=== PATIENT | male | born 1935 | race Caucasian/White ===

== ENCOUNTER → 2016-12-11 | Outpatient (CLI) | payer MEDICARE, OTHER ==
[2016-12-11 08:39] LABS: ANION GAP 10 (5-19); BLOOD UREA NITROGEN 24 mg/dL (7-20); CARBON DIOXIDE 25 mmol/L (22-30); CHLORIDE 107 mmol/L (98-107); CREATININE RESULT 1.27 mg/dL (0.52-1.25); GLUCOSE 102 mg/dL (75-110); POTASSIUM 4.5 mmol/L (3.6-5.0); SODIUM 142.3 mmol/L (137-145)
[2016-12-12 20:13] LABS: CREATININE URINE 109.2 mg/dL (Not Estab.); MICROALBUMIN URINE 257.4 ug/mL (Not Estab.)
== END ==
LOC: OD 07:05
PROVIDERS: ATTEND Internal Medicine Nephrology
DX: I12.9 Hypertensive chronic kidney disease with stage 1 through stage 4 chronic kidney disease, or unspecified chronic kidney disease (principal); N18.3 Chronic kidney disease, stage 3 (moderate); E55.9 Vitamin D deficiency, unspecified
CPT/HCPCS: 36415; 80048; 82043; 82306; 82570

== ENCOUNTER → 2017-06-15 | Outpatient (CLI) | payer MEDICARE, OTHER ==
[2017-06-15 08:56] LABS: ABSOLUTE BASOPHILS # (AUTO) 0.1 10^3/uL (0.0-0.2); ABSOLUTE EOSINOPHILS # (AUTO) 0.3 10^3/uL (0.0-0.6); ABSOLUTE LYMPHOCYTES (AUTO) 1.1 10^3/uL (0.5-4.7); ABSOLUTE MONOCYTES (AUTO) 0.7 10^3/uL (0.1-1.4); ABSOLUTE NEUT (AUTO) 4.4 10^3/uL (1.7-8.2); EOSINOPHILS % (AUTO) 4.7 % (0-6); HEMATOCRIT 36.8 % (37.9-51.0); HEMOGLOBIN 12.2 g/dL (13.5-17.0); LYMPHOCYTES % (AUTO) 16.7 % (13-45); MEAN CORPUSCULAR HEMOGLOBIN 29.2 pg (27.0-33.4); MEAN CORPUSCULAR HGB CONC 33.3 g/dL (32.0-36.0); MEAN CORPUSCULAR VOLUME 88 fl (80-97); MONOCYTES % (AUTO) 10.7 % (3-13); PLATELET COUNT 186 10^3/uL (150-450); RED BLOOD COUNT 4.19 10^6/uL (4.35-5.55); RED CELL DISTRIBUTION WIDTH 15.4 % (11.5-14.0); SEGMENTED NEUTROPHILS % (AUTO) 66.9 % (42-78); TOTAL CELLS COUNTED % (AUTO) 100 %; WHITE BLOOD COUNT 6.6 10^3/uL (4.0-10.5)
[2017-06-15 09:11] LABS: ANION GAP 8 (5-19); BLOOD UREA NITROGEN 28 mg/dL (7-20); CALCIUM 9.2 mg/dL (8.4-10.2); CARBON DIOXIDE 31 mmol/L (22-30); CHLORIDE 106 mmol/L (98-107); GLUCOSE 100 mg/dL (75-110); PHOSPHORUS 3.7 mg/dL (2.5-4.5); SODIUM 144.6 mmol/L (137-145)
== END ==
LOC: OD 08:08
PROVIDERS: ATTEND Internal Medicine Nephrology
DX: N18.3 Chronic kidney disease, stage 3 (moderate) (principal); D63.1 Anemia in chronic kidney disease; E55.9 Vitamin D deficiency, unspecified
CPT/HCPCS: 36415; 80048; 82040; 82306; 83970; 84100; 85025

== ENCOUNTER → 2018-01-07 | Outpatient (CLI) | payer MEDICARE, OTHER ==
--- NOTE | 2018-01-07 13:08 | RADIOLOGY REPORT (SQ) ---
EXAM DESCRIPTION: CT ABD/PELVIS WITH IV ORAL COMPLETED DATE/TIME: 01/07/2018 8:45 am REASON FOR STUDY: UNSPECIFIED ABDOMINAL PAIN R10.9 UNSPECIFIED ABDOMINAL PAIN COMPARISON: None. TECHNIQUE: CT scan of the abdomen and pelvis performed using helical scanning technique with dynamic intravenous contrast injection. No oral contrast. Images reviewed with lung, soft tissue, and bone windows. Reconstructed coronal and sagittal MPR images reviewed. Delayed images for evaluation of the urinary system also acquired. All images stored on PACS. All CT scanners at this facility use dose modulation, iterative reconstruction, and/or weight based d osing when appropriate to reduce radiation dose to as low as reasonably achievable (ALARA). [facility]: Dose Right [facility]: CareDose [facility]: Dose Right [facility]: Teradose 4D [facility]: [employer] CONTRAST TYPE AND DOSE: contrast/concentration: Isovue 350.00 mg/ml; Total Contrast Delivered: 89.0 ml; Total Saline Delivered: 70.0 ml RENAL FUNCTION: Creatinine 1.3. RADIATION DOSE: CT Rad equipment meets quality standard of care and radiation dose reduction techniq ues were employed. CTDIvol: 7.6 - 8.8 mGy. DLP: 815 mGy-cm.. LIMITATIONS: None. FINDINGS: LOWER CHEST: No significant findings. No nodules or infiltrates. LIVER: Normal size. No masses. No dilated ducts. SPLEEN: Normal size. No focal lesions. PANCREAS: No masses. No significant calcifications. No adjacent inflammation or peripancreatic fluid collections. Pancreatic duct not dilated. GALLBLADDER: No identified stones by CT criteria. No inflammatory changes to suggest cholecystitis. ADRENAL GLANDS: No significant masses or asymmetry. RIGHT KIDNEY AND URETER: Cortical cyst. No solid masses. No significant calcifications. No hydro nephrosis or hydroureter. LEFT KIDNEY AND URETER: No solid masses. No significant calcifications. No hydronephrosis or hydr oureter. AORTA AND VESSELS: No aneurysm. No dissection. Renal arteries, SMA, celiac without stenosis. RETROPERITONEUM: No retroperitoneal adenopathy, hemorrhage or masses. BOWEL AND PERITONEAL CAVITY: Fairly large hiatal hernia. Colonic diverticulosis. No masses or infla mmatory changes. No free fluid or peritoneal masses. APPENDIX: Normal. PELVIS: Large left inguinal hernia containing a significant portion of the adjacent descending and si gmoid colon. There is also a large right inguinal hernia containing fat only. No mass. No free flu id. Normal bladder. ABDOMINAL WALL: No masses. No hernias. BONES: No significant or acute findings. Degenerative changes in the spine. OTHER: No other significant finding. IMPRESSION: 1. LARGE LEFT INGUINAL HERNIA CONTAINING A SIGNIFICANT PORTION OF THE ADJACENT DESCENDING AND SIGMOID COLON. NO EVIDENCE OF MECHANICAL OBSTRUCTION AT THIS TIME. 2. LARGE RIGHT INGUINAL HERNIA CONTAINING FAT ONLY. 3. COLONIC DIVERTICULOSIS. NO CT FINDINGS OF DIVERTICULITIS. 4. LARGE HIATAL HERNIA. 5. CORTICAL CYST IN THE RIGHT KIDNEY. 6. NO OTHER SIGNIFICANT FINDINGS. TECHNICAL DOCUMENTATION: JOB ID: [id number] Quality ID # [id number]: Final reports with documentation of one or more dose reduction techniques (e.g., Au tomated exposure control, adjustment of the mA and/or kV according to patient size, use of iterative reconstruction technique) 2010 [employer]- All Rights Reserved Reading location - IP/workstation name: [email or web address]
== END ==
LOC: RAD 07:53
PROVIDERS: ATTEND Surgery
DX: K40.20 Bilateral inguinal hernia, without obstruction or gangrene, not specified as recurrent (principal); R10.9 Unspecified abdominal pain
CPT/HCPCS: 74177; 82565

== ENCOUNTER → 2018-02-03 | Outpatient (CLI) | payer MEDICARE, OTHER ==
[~2018-02-03] MED LIST: REGADENOSON INJ 0.4 MG/5 ML DISP.SYRIN IV ONE
--- NOTE | 2018-02-03 19:30 | DRAGON STRESS TEST REPORT ---
INTRAVENOUS LEXISCAN CARDIOLITE STRESS TEST USING SINGLE PHOTON EMMISION COMPUTERIZED TOMOGRAPHIC. DATE OF PROCEDURE: February 03, 2018, INDICATION : Preop hernia surgery, patient with CAD and history of CABG CARDIAC RISK FACTORS: Hypertension, dyslipidemia, known CAD RESTING EKG: Sinus rhythm, right bundle branch block, left axis deviation, abnormal Q waves V1 to V3 suggestive of prior anteroseptal myocardial infarction STRESS EKG: No significant ST segment changes noted with LexiScan bolus REASON FOR TERMINATION: Protocol. PROCEDURE REPORT: Baseline heart rate 54 beats per minute with blood pressure of 127/69. Patient had no significant complaints. Patient was bolused with Lexiscan 0.4 mg intravenously followed by saline bolus. Heart rate at 2 minutes post bolus 68 with a blood pressure of 102/56. 3 minutes post bolus heart rate 70 with blood pressure of 113/65. No significant EKG changes were noted. Patient had no significant complaints during the procedure or postprocedure. CONCLUSIONS: Normal EKG and hemodynamic response to IV LexiScan. NUCLEAR DATA: At rest the patient was given 12.42 millicuries of technetium 99 sestamibi injected intravenously. As per protocol rest gated SPECT images were obtained. On day of stress test, the patient was given intravenous LexiScan at a dose of 0.4 mg in 5 mL intravenously, followed by flush with normal saline. Subsequently the stress dose of 34.9 millicuries of technetium 99 sestamibi was injected intravenously. As per protocol stress gated images were obtained. NUCLEAR INTERPRETATION: Both raw and processed data were used for interpretation. Visual, qualitative, computer-generated quantitative data was used. There was good myocardial uptake of technetium compound. Motion artifact and soft tissue attenuations were noted. Increased visceral uptake was noted. No definitive areas of transient perfusion defect noted, predominantly severe fixed defect noted in the apex and distal anterior wall consistent with severe scar. EKG gated imaging showed LV EF at 39 %, rest and stress gated EF similar visually. Apical and distal anterior wall akinesia noted. T. I D. ratio was 1.15. Lung heart ratio noted to be within normal limits 0.34. No significant extracardiac and abnormal radiotracer activities were noted. RV free wall uptake was noted to be WNL. IMPRESSION: Also refer to comments under nuclear interpretation. Also test results needs to be interpreted in the context of pretest probability. 1. No definitive areas of transient perfusion defect noted. 2. Severe fixed defect noted in the apex and distal anterior wall consistent with severe scar. 3. EKG gated imaging shows left ventricular ejection fraction of approx. 39 %. Apical and distal anterior wall akinesia noted. 4. Clinical correlation requested as worse disease and or balanced ischemia could be missed. In approximately 10% of the cases Lexiscan may not cause adequate vasodilatory stress. RECOMMENDATIONS: Aggressive risk factor modification and medical management. Further evaluation may be needed if continued symptoms or other high risk indicators are noted on clinical evaluation. Close cardiology follow-up is also recommended. Clinical correlation with echocardiogram derived ejection fraction. Inability to exercise by itself can lead to increased cardiovascular event risks. Consider cardiology consultation and or follow-up if clinically indicated. I am available for cardiology evaluation and consultation if requested by the tobacco conditioner, unless patient already has a marketing performance analyst. Dr. Mayra Mejía. MRCP Board certified in cardiology and sleep medicine. Board certified in nuclear cardiology, adult echocardiography. V[facility]URA
== END ==
LOC: RAD 07:45
PROVIDERS: ATTEND Internal Medicine Cardiovascular Disease
DX: I25.10 Atherosclerotic heart disease of native coronary artery without angina pectoris (principal); Z01.810 Encounter for preprocedural cardiovascular examination
CPT/HCPCS: 93017; 78452; A9500; J2785; Q9969

== ENCOUNTER → 2018-02-04 | Outpatient (CLI) | payer MEDICARE, OTHER ==
[2018-02-04 09:04] VITALS: BP 138/70
--- NOTE | 2018-02-04 09:59 | RADIOLOGY REPORT (SQ) ---
EXAM DESCRIPTION: CHEST PA/LATERAL COMPLETED DATE/TIME: 02/04/2018 9:52 am REASON FOR STUDY: PRE-OP COMPARISON: 01/14/2011 EXAM PARAMETERS: NUMBER OF VIEWS: two views TECHNIQUE: Digital Frontal and Lateral radiographic views of the chest acquired. RADIATION DOSE: NA LIMITATIONS: none FINDINGS: LUNGS AND PLEURA: No opacities, masses or pneumothorax. No pleural effusion. MEDIASTINUM AND HILAR STRUCTURES: No masses or contour abnormalities. HEART AND VASCULAR STRUCTURES: Heart normal size. No evidence for failure. BONES: No acute findings. HARDWARE: Sternotomy wires are in place. OTHER: No other significant finding. IMPRESSION: NO SIGNIFICANT RADIOGRAPHIC FINDING IN THE CHEST. TECHNICAL DOCUMENTATION: JOB ID: [id number] [employer]- All Rights Reserved Reading location - IP/workstation name: [email or web address]
[2018-02-04 10:55] LABS: HEMATOCRIT 35.5 % (37.9-51.0); HEMOGLOBIN 11.7 g/dL (13.5-17.0); MEAN CORPUSCULAR HEMOGLOBIN 28.8 pg (27.0-33.4); MEAN CORPUSCULAR VOLUME 87 fl (80-97); PLATELET COUNT 201 10^3/uL (150-450); RED BLOOD COUNT 4.08 10^6/uL (4.35-5.55); RED CELL DISTRIBUTION WIDTH 16.4 % (11.5-14.0); WHITE BLOOD COUNT 8.4 10^3/uL (4.0-10.5)
[2018-02-04 11:24] LABS: ANION GAP 8 (5-19); BLOOD UREA NITROGEN 26 mg/dL (7-20); CALCIUM 9.2 mg/dL (8.4-10.2); CARBON DIOXIDE 28 mmol/L (22-30); CHLORIDE 107 mmol/L (98-107); GLUCOSE 96 mg/dL (75-110); POTASSIUM 4.5 mmol/L (3.6-5.0); SODIUM 143.2 mmol/L (137-145)
== END ==
LOC: OD 09:28 → EDSTATUS 02-11 12:30
PROVIDERS: ATTEND Surgery
DX: Z01.810 Encounter for preprocedural cardiovascular examination (principal); Z01.812 Encounter for preprocedural laboratory examination; Z01.818 Encounter for other preprocedural examination; K40.20 Bilateral inguinal hernia, without obstruction or gangrene, not specified as recurrent; I10 Essential (primary) hypertension; Z79.82 Long term (current) use of aspirin; Z95.1 Presence of aortocoronary bypass graft
CPT/HCPCS: 36415; 71046; 80048; 85027

== ENCOUNTER 2018-03-11 05:25 | Day surgery (SDC) | payer MEDICARE, OTHER ==
[2018-03-10 09:46] LABS: HEMOGLOBIN 12.2 g/dL (13.5-17.0); MEAN CORPUSCULAR HEMOGLOBIN 29.3 pg (27.0-33.4); MEAN CORPUSCULAR HGB CONC 33.7 g/dL (32.0-36.0); MEAN CORPUSCULAR VOLUME 87 fl (80-97); PLATELET COUNT 193 10^3/uL (150-450); RED BLOOD COUNT 4.16 10^6/uL (4.35-5.55); RED CELL DISTRIBUTION WIDTH 15.9 % (11.5-14.0); WHITE BLOOD COUNT 7.7 10^3/uL (4.0-10.5)
[2018-03-10 10:10] LABS: ALANINE AMINOTRANSFERASE 26 U/L (21-72); ALKALINE PHOSPHATASE 98 U/L (38-126); ANION GAP 9 (5-19); ASPARTATE AMINO TRANSFERASE 22 U/L (17-59); BILIRUBIN,DIRECT 0.2 mg/dL (0.0-0.4); BILIRUBIN,TOTAL 0.6 mg/dL (0.2-1.3); BLOOD UREA NITROGEN 26 mg/dL (7-20); CALCIUM 9.3 mg/dL (8.4-10.2); CARBON DIOXIDE 28 mmol/L (22-30); CHLORIDE 107 mmol/L (98-107); GLUCOSE 95 mg/dL (75-110); POTASSIUM 4.7 mmol/L (3.6-5.0); SODIUM 143.6 mmol/L (137-145); TOTAL PROTEIN 6.8 g/dL (6.3-8.2)
[~2018-03-11 05:25] MED LIST changes: +ACETAMINOPHEN 325 MG TABLET PO PRN; +CEFAZOLIN 2 GM/D5W RTU 2 GM/50 ML RTUPB IV ONE; +CEFAZOLIN 2 GM/D5W RTU 2 GM/50 ML RTUPB IV PRN; +LACTATED RINGERS 1000 ML IV PRN; +LIDOCAINE 0.5% INJ-PF (5 MG/ML) 50 ML SDV SUBCUT PRN; -REGADENOSON INJ 0.4 MG/5 ML DISP.SYRIN IV ONE
[2018-03-11] MEDS ORDERED: LIDOCAINE 2% INJ-PF (20 MG/ML) 10 ML AMPUL ONE (06:18)
[2018-03-11] MEDS ORDERED: DEXAMETHASONE SOD PHOSPHATE INJ 4 MG/1 ML VIAL ONE (06:19)
[2018-03-11] MEDS ORDERED: FENTANYL CITRATE INJ/PF 100 MCG/2 ML AMPUL ONE (06:19)
[2018-03-11] MEDS ORDERED: MIDAZOLAM 2 MG/2 ML INJ ONE (06:19)
[2018-03-11] MEDS ORDERED: PROPOFOL INJ 200 MG/20 ML VIAL IV ONE (06:20)
[2018-03-11] MEDS ORDERED: ACETAMINOPHEN 0 MG/0 ML RTUPB IV ONE (06:20)
[2018-03-11] MEDS ORDERED: ONDANSETRON HCL INJ/PF 4 MG/2 ML SDV ONE (06:20)
[2018-03-11] MEDS ORDERED: BUPIVACAINE HCL 0.5 % INJ/PF 30 ML SDV ONE (06:43)
[2018-03-11] MEDS ORDERED: SUGAMMADEX SODIUM 200 MG/2 ML SDV IV ONE (06:45)
[2018-03-11] MEDS ORDERED: EPHEDRINE SULFATE INJ 50 MG/1 ML AMPULE ONE (07:17)
[2018-03-11] MEDS ORDERED: MEPERIDINE HCL/PF INJ 25 MG/1 ML DISP.SYRIN IV PRN (09:08)
[2018-03-11] MEDS ORDERED: PROMETHAZINE HCL INJ 25 MG/1 ML VIAL IV PRN ×2 (09:08)
[2018-03-11] MEDS ORDERED: MORPHINE SULFATE 10 MG/ML INJ IV PRN (09:08)
[2018-03-11] MEDS ORDERED: FENTANYL CITRATE INJ/PF 100 MCG/2 ML AMPUL IV PRN ×2 (09:08)
[2018-03-11] MEDS ORDERED: ONDANSETRON HCL INJ/PF 4 MG/2 ML SDV IV PRN (09:08)
[2018-03-11] MEDS ORDERED: DIPHENHYDRAMINE HCL 50 MG/ML VIAL IV PRN (09:08)
--- NOTE | 2018-03-11 09:21 | EKG REPORT ---
SEVERITY:- ABNORMAL ECG - SINUS RHYTHM VENTRICULAR PREMATURE COMPLEX RBBB AND LAFB CONSIDER ANTERIOR INFARCT : Confirmed by: Jazzy Portillo MD 11-Mar-2018 09:19:53
[2018-03-11] MEDS ORDERED: ACETAMINOPHEN 1,000 MG/100 ML RTUPB IV ONE (11:44)
[2018-03-11] MEDS ORDERED: IBUPROFEN 400 MG TABLET PO PRN (12:13)
[2018-03-11] MEDS ORDERED: HYDROCODONE/ACETAMINOPHEN 5-325 MG TABLET PO PRN (12:13)
[2018-03-11] MEDS ORDERED: IBUPROFEN 800 MG TABLET ONE (12:28)
[2018-03-11] MEDS ORDERED: ROCURONIUM BROMIDE INJ 50 MG/5 ML VIAL IV ONE ×2 (13:45)
[2018-03-11] MEDS ORDERED: SUCCINYLCHOLINE CHLORIDE INJ 200 MG/10 ML VIAL ONE (13:45)
[2018-03-11] MEDS ORDERED: PHENYLEPHRINE HCL INJ/PF 10 MG/1 ML SDV ONE (13:45)
[2018-03-11 14:39] VITALS: BP 139/72
--- NOTE | 2018-03-14 14:02 | Discharge Summary ---
Discharge Summary (SDC) - Discharge Final Diagnosis: Recurrent left inguinal hernia. Initial right inguinal hernia. Date of Surgery: 03/11/18 Discharge Date: 03/11/18 Condition: Stable Forms: ASU Anesthesia D/C Instruction, Discharge POC-Surgical Service Treatment or Instructions: Return to physician as directed. Referrals: DENVER BABIN MD [ACTIVE STAFF] - Respiratory Treatments at Home: Deep Breathing/Coughing Discharge Activity: No Lifting Over 10 Pounds, No Lifting/Push/Pulling Home Care Assistance: None Needed Report the Following to Your Physician Immediately: Shortness of Breath, Nausea , Vomiting, Increase in Pain, Fever over 101 Degrees, Unusual Bleeding, Redness , Swelling, Warmth
--- NOTE | 2018-03-14 14:14 | Operative Report ---
Nonrecallable Operative Report DATE OF SURGERY: 03/11/18 PREOPERATIVE DIAGNOSIS: 1. Recurrent left inguinal hernia. 2. Initial right inguinal hernia. POSTOPERATIVE DIAGNOSIS: Same as above OPERATION: Robot-assisted laparoscopic bilateral inguinal hernia repair with mesh. SURGEON: DENVER GRIMM LOAN FUNDER: ZINA LEIJA ANESTHESIA: GA TISSUE REMOVED OR ALTERED: Old left-sided inguinal hernia mesh COMPLICATIONS: None apparent ESTIMATED BLOOD LOSS: Minimal PROCEDURE: Drains/implants: Large right and left 3D max inguinal hernia mesh. Procedure in detail: After informed consent was obtained, the patient was brought to the operating room and laid in the supine position. The area of the abdomen was prepped and draped in a normal sterile fashion. An incision was created above the umbilicus with a 15 blade scalpel. Dissection was carried through the subcutaneous tissue using sharp dissection. The linea alba fascia was incised sharply, the abdomen was entered sharply. The balloon trocar was inserted, and pneumoperitoneum was achieved. Right and left 8 mm robotic abdominal trochars were placed through the abdominal wall under direct laparoscopic visualization. The robot was then brought over the patient and docked appropriately. I then assumed my position at the surgeon's console. Attention was turned to the left groin. There was an obvious inflammatory reaction in this area. The peritoneum was scored above the area of the defect and previous mesh placement. A preperitoneal dissection was then undertaken using sharp dissection and electrocautery. The old mesh was removed from the preperitoneal space. This was done with great care, so as not to injure the cord structures or surrounding vasculature. This was successful. The defect was brought into view. There was a large lipoma of the cord. This was reduced. Attention was then turned to dissection of the right groin. The hernia defect on the right was also very large. The peritoneum was scored 2 -3 cm superior to the defect. A preperitoneal dissection was undertaken. This was done using sharp dissection, electrocautery, and blunt dissection. A large lipoma of the cord was reduced. The cord structures were freed from the hernia sac. This was done with great care, so as not to injure the cord structures. Once the dissection was deemed adequate, a large right-sided 3D max inguinal hernia mesh was placed into the preperitoneal space. It was sutured medially and superiorly. It was done with 2-0 Vicryl suture. The peritoneum was then closed using 2-0 V lock suture in simple running fashion. Once this was completed, attention was turned to the spine of the left sided inguinal hernia mesh. A large left-sided 3 DMax inguinal hernia mesh was placed into the preperitoneal space. It was situated over the defect. It was sutured to the abdominal wall medially and superiorly. It was found to lie in good position. Next, the peritoneum was closed using 2-0 V lock suture in simple running fashion. The robot was then undocked. The trochars were removed, and pneumoperitoneum was relieved. The supraumbilical fascia was closed using 0 Vicryl suture in [id number] fashion. The overlying skin was closed using 4 -0 Vicryl Rapide suture in subcuticular fashion. Dressings were placed, and the procedure was concluded. All sponge, instrument, and needle counts were correct x2. Condition: Stable. Zina Leija PA-C was scrubbed and present the entirety of the procedure. She assisted with all portions of the procedure including opening of the skin, placement of the trochars, docking of the robot, exchanging of the robotic instruments, closure of the fascia, and closure of the skin.
== END 2018-03-11 13:45 | disposition home or self-care (01) ==
LOC: OROUT 05:25
PROVIDERS: ATTEND Surgery
DX: K40.91 Unilateral inguinal hernia, without obstruction or gangrene, recurrent (principal); K40.90 Unilateral inguinal hernia, without obstruction or gangrene, not specified as recurrent; I10 Essential (primary) hypertension; I25.10 Atherosclerotic heart disease of native coronary artery without angina pectoris; I25.2 Old myocardial infarction; Z79.899 Other long term (current) drug therapy; Z79.82 Long term (current) use of aspirin; Z95.1 Presence of aortocoronary bypass graft; Z88.8 Allergy status to other drugs, medicaments and biological substances
CPT/HCPCS: 49650; 49651; S2900; 36415; 80053; 840; 84132; 85027; 93005; 93010; C1781; J0131; J0330; J0690; J1100; J2250; J2370; J2405; J2704; J3010; J3490

== ENCOUNTER 2019-01-27 09:16 | Inpatient (IN) | payer MEDICARE, OTHER ==
--- NOTE | 2019-01-27 10:34 | RADIOLOGY REPORT (SQ) ---
EXAM DESCRIPTION: CHEST SINGLE VIEW COMPLETED DATE/TIME: 01/27/2019 10:26 am REASON FOR STUDY: coughing blood COMPARISON: 01/14/2011 NUMBER OF VIEWS: One view. TECHNIQUE: Single frontal radiographic view of the chest acquired. LIMITATIONS: None. FINDINGS: LUNGS AND PLEURA: There is bilateral perihilar interstitial airspace disease. Small pleur al effusions. MEDIASTINUM AND HILAR STRUCTURES: No masses. Contour normal. HEART AND VASCULAR STRUCTURES: Heart is enlarged with central vascular prominence. BONES: No acute findings. HARDWARE: Sternotomy wires are in place. OTHER: No other significant finding. IMPRESSION: Extensive perihilar and bilateral alveolar and interstitial airspace disease most likely pulmonary edema. Infectious process is thought to be less likely. There are small effusions. TECHNICAL DOCUMENTATION: JOB ID: [id number] [employer]- All Rights Reserved Reading location - IP/workstation name: [email or web address]
--- NOTE | 2019-01-27 10:41 | ER Document Report ---
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 Supposedly a quarter sized blood clot with the coughing today. Temperature supposedly of 100.1 at the facility. No vomiting, diarrhea, runny nose, congestion, sore throat, chest pain, and the patient takes aspirin as a blood thinner. Patient lives at [facility] secondary to rehabilitation from his leg. Patient supposedly was diagnosed with a urinary tract infection recently with a urine culture that grew out Pseudomonas. Patient had a Hollingsworth catheter at that time. Patient is normally not on oxygen. ROS: See HPI All other review of systems reviewed and otherwise negative Reviewed vital signs and nursing note as charted by RN. PHYSICAL EXAM: CONSTITUTIONAL: Alert and oriented and responds appropriately to questions. Well-appearing; well-nourished HEAD: Normocephalic; atraumatic EYES: PERRL; Conjunctivae clear, sclerae non-icteric ENT: Normal nose; no rhinorrhea; moist mucous membranes; pharynx without lesions noted NECK: Supple without meningismus; non-tender; no cervical lymphadenopathy, no masses CARD: Regular rate and rhythm; no murmurs; symmetric distal pulses RESP: Normal chest excursion without splinting or tachypnea; patient has some scattered rhonchi/rales to the right mid lung field ABD/GI: Normal bowel sounds; non-distended; soft, non-tender; no palpable organomegaly or masses BACK: The back appears normal and is non-tender to palpation EXT: Old surgical scars to the right lower extremity with no obvious edema. Left leg amputation SKIN: Ulcer-like lesion to the right heel and right great toe NEURO: CN 2-12 intact; 5/5 bilateral upper and lower extremity strength with sensation intact to light touch PSYCH: The patient's mood and manner are appropriate. Grooming and personal hygiene are appropriate. TRAVEL OUTSIDE OF THE [place] IN LAST 30 DAYS: No - Related Data Allergies/Adverse Reactions: zolpidem [From Ambien] Adverse Reaction (Verified 03/10/18 09:14) extreme confusion Past Medical History - Social History Smoking Status: Former Smoker Chew tobacco use (# tins/day): No Drug Abuse: None Family History: Reviewed & Not Pertinent Patient has suicidal ideation: No Patient has homicidal ideation: No - Past Medical History Cardiac Medical History: Reports: Hx Coronary Artery Disease, Hx Heart Attack - 2000, Hx Hypertension Pulmonary Medical History: Denies: Hx Asthma, Hx Bronchitis, Hx COPD, Hx Pneumonia Neurological Medical History: Denies: Hx Cerebrovascular Accident, Hx Seizures GI Medical History: Musculoskeletal Medical History: Reports Hx Arthritis Infectious Medical History: Past Surgical History: Reports: Hx Cardiac Surgery - CABG x5. Denies: Hx Pac emaker - Immunizations Hx Diphtheria, Pertussis, Tetanus Vaccination: No Physical Exam - Vital signs Vitals: Temp Pulse Resp BP Pulse Ox 98.2 F 95 16 149/78 H 94 01/27/19 09:33 01/27/19 09:33 01/27/19 09:33 01/27/19 09:33 01/27/19 09:33 Course - Re-evaluation Re-evalutation: 01/27/19 10:39 Given the history and physical examination we will order portable x-ray, EKG, coagulation profiles, blood cultures, and reassess. Patient supposedly has not received any antipyretics with a temperature as recorded. I would like to evaluate initially for an obvious pneumonia. If this is unremarkable, given the recent surgery with hemoptysis, I will perform a CTA of the chest. I have called and spoken to the facility that sent the patient to this location. They said that the patient has been running low-grade fevers for the last 2 days with a cough. They state a room air oxygen saturation of 88% this morning. They state that the Hollingsworth catheter was actually discontinued today because the patient had a urology appointment to see if he was able to void without the Hollingsworth catheter this afternoon with [facility] urology. They stated after removing the Hollingsworth the patient was able to urinate. EKG shows a heart of 86, normal sinus rhythm, left axis deviation, no obvious ST elevation or depression. Flattened T waves laterally 01/27/19 10:47 X-ray of the chest appears to show extensive airway disease. Again patient denies any and all chest pain. He denies any shortness of breath above ba seline. He has no right lower extremity swelling. Patient has had a temperature for the last 2 days according the nursing care reports. I will provide broad-spectrum antibiotics. Cultures have already been sent. I will also order a CTA of the chest. 01/27/19 12:39 Labs and CTA of the chest as recorded. Antibiotics have been provided. BNP is elevated. Patient currently still denies any pain. Antibiotics have been provided. Blood cultures have been sent. - Vital Signs Vital signs: Temp Pulse Resp BP Pulse Ox 98.2 F 95 19 148/87 H 94 01/27/19 09:33 01/27/19 09:33 01/27/19 12:07 01/27/19 12:07 01/27/19 12:07 - Laboratory Result Diagrams: 01/27/19 09:40 01/27/19 09:40 Laboratory results interpreted by me: 01/27/19 01/27/19 01/27/19 09:40 09:40 09:40 RBC 3.02 L Hgb 8.0 L Hct 24.7 L MCH 26.5 L RDW 18.3 H Lymph % (Auto) 5.2 L Absolute Neuts (auto) 8.7 H Seg Neutrophils % 84.7 H Sodium 136.6 L BUN 32 H Creatinine 1.33 H Est GFR (MDRD) Non-Af 51 L NT-Pro-B Natriuret Pep 12307 H Albumin 2.9 L Discharge - Discharge Clinical Impression: Bacterial pneumonia, Hypoxia, Elevated brain natriuretic peptide (BNP) level Condition: Fair Disposition: ADMITTED INPATIENT Unit Admitted: Telemetry Referrals: CANDIDO ZIMMERMAN MD [Primary Care Provider] - Follow up as needed
[2019-01-27] MEDS ORDERED: VANCOMYCIN HCL INJ 1000 MG VIAL IV ONE (10:46)
[2019-01-27] MEDS ORDERED: PIPERACILLIN/TAZOBACTAM 3.375 GM VIAL IV ONE (10:47)
[2019-01-27 11:36] LABS: ABSOLUTE BASOPHILS # (AUTO) 0.1 10^3/uL (0.0-0.2); ABSOLUTE EOSINOPHILS # (AUTO) 0.3 10^3/uL (0.0-0.6); ABSOLUTE LYMPHOCYTES (AUTO) 0.5 10^3/uL (0.5-4.7); ABSOLUTE MONOCYTES (AUTO) 0.7 10^3/uL (0.1-1.4); ABSOLUTE NEUT (AUTO) 8.7 10^3/uL (1.7-8.2); BASOPHILS % (AUTO) 0.8 % (0-2); EOSINOPHILS % (AUTO) 2.6 % (0-6); HEMATOCRIT 24.7 % (37.9-51.0); LYMPHOCYTES % (AUTO) 5.2 % (13-45); MEAN CORPUSCULAR HEMOGLOBIN 26.5 pg (27.0-33.4); MEAN CORPUSCULAR HGB CONC 32.3 g/dL (32.0-36.0); MEAN CORPUSCULAR VOLUME 82 fl (80-97); MONOCYTES % (AUTO) 6.7 % (3-13); PLATELET COUNT 295 10^3/uL (150-450); RED BLOOD COUNT 3.02 10^6/uL (4.35-5.55); RED CELL DISTRIBUTION WIDTH 18.3 % (11.5-14.0); SEGMENTED NEUTROPHILS % (AUTO) 84.7 % (42-78); TOTAL CELLS COUNTED % (AUTO) 100 %; WHITE BLOOD COUNT 10.2 10^3/uL (4.0-10.5)
[2019-01-27 11:40] LABS: INTERNATIONAL RATION (INR) 1.16; PROTHROMBIN TIME 14.9 SEC (11.4-15.4)
[2019-01-27 11:43] LABS: ALBUMIN 2.9 g/dL (3.5-5.0); ALKALINE PHOSPHATASE 107 U/L (38-126); ANION GAP 8 (5-19); ASPARTATE AMINO TRANSFERASE 40 U/L (17-59); BILIRUBIN,DIRECT 0.3 mg/dL (0.0-0.4); BILIRUBIN,TOTAL 0.4 mg/dL (0.2-1.3); BLOOD UREA NITROGEN 32 mg/dL (7-20); CALCIUM 8.5 mg/dL (8.4-10.2); CARBON DIOXIDE 26 mmol/L (22-30); CHLORIDE 103 mmol/L (98-107); GLUCOSE 108 mg/dL (75-110); TOTAL PROTEIN 6.3 g/dL (6.3-8.2)
[2019-01-27 11:55] LABS: TROPONIN I 0.03 ng/mL
--- NOTE | 2019-01-27 12:20 | RADIOLOGY REPORT (SQ) ---
EXAM DESCRIPTION: CTA CHEST COMPLETED DATE/TIME: 01/27/2019 12:06 pm REASON FOR STUDY: 11; coughing blood COMPARISON: 01/27/2019 TECHNIQUE: CT scan of the chest performed using helical scanning technique with dynamic intravenous contrast injection. Images reviewed with lung, soft tissue and bone windows. Reconstructed coronal and sagittal MPR images reviewed. Additional 3 dimensional post-processing performed to develop Maximal Intensity Projection images (TX P). All images stored on PACS. All CT scanners at this facility use dose modulation, iterative reconstruction, and/or weight based d osing when appropriate to reduce radiation dose to as low as reasonably achievable (ALARA). [facility]: Dose Right [facility]: CareDose [facility]: Dose Right [facility]: Teradose 4D [facility]: AREVS CONTRAST TYPE AND DOSE: contrast/concentration: Isovue 350.00 mg/ml; Total Contrast Delivered: 59.0 ml; Total Saline Delivered: 70.0 ml Contrast bolus optimized for the pulmonary arteries. Not diagnostic for the aorta. RENAL FUNCTION: GFR > 60. RADIATION DOSE: CT Rad equipment meets quality standard of care and radiation dose reduction techniq ues were employed. CTDIvol: 18.2 - 19.8 mGy. DLP: 601 mGy-cm. . LIMITATIONS: None. FINDINGS: LUNGS AND PLEURA: Moderate bilateral pleural effusions associated atelectasis or consolida tion. There is extensive bilateral perihilar ground-glass opacity and consolidation. AORTA AND GREAT VESSELS: No aneurysm. Contrast bolus not optimized for the aorta. Severe mixed athe rosclerosis of the aorta. HEART: No pericardial effusion. Coronary artery calcifications. Cardiomegaly. PULMONARY ARTERIES: No emboli visualized in the main pulmonary arteries or the segmental branches. HILAR AND MEDIASTINAL STRUCTURES: No identified masses or abnormal nodes. HARDWARE: None in the chest. UPPER ABDOMEN: No significant findings. Limited exam. THYROID AND OTHER SOFT TISSUES: No masses. No adenopathy. BONES: No acute or significant finding. 3D MIPS: Confirm above findings. OTHER: No other significant finding. IMPRESSION: 1. Negative examination for pulmonary embolism. 2. There is extensive bilateral perihilar ground-glass opacity and consolidation, most consistent wi th infection. Asymmetric edema may have this appearance. 3. Moderate bilateral pleural effusions and associated atelectasis or consolidation. 4. Cardiomegaly. COMMENT: Quality ID # [id number]: Final reports with documentation of one or more dose reduction techniques (e.g., Automated exposure control, adjustment of the mA and/or kV according to patient size, use of iterative reconstruction technique) TECHNICAL DOCUMENTATION: JOB ID: [id number] [employer]- All Rights Reserved Reading location - IP/workstation name: [email or web address]
--- NOTE | 2019-01-27 13:48 | EKG REPORT ---
SEVERITY:- ABNORMAL ECG - SINUS RHYTHM RIGHT BUNDLE BRANCH BLOCK ANTERIOR INFARCT, AGE INDETERMINATE NONSPECIFIC INFERIOR ST-T CHANGES : Confirmed by: Parker Dee MD 27-Jan-2019 13:47:34
[2019-01-27] MEDS ORDERED: GUAIFENESIN SYRP 200 MG/10 ML UDC PO PRN (13:49)
[2019-01-27] MEDS ORDERED: ALBUTEROL SULFATE 0.083% NEB 2.5 MG/3 ML AMPUL NEB PRN (13:49)
[2019-01-27] MEDS ORDERED: COLCHICINE 0.6 MG TABLET PO ONE (14:34)
[2019-01-27] MEDS ORDERED: HYDROCODONE/ACETAMINOPHEN 5-325 MG TABLET PO PRN (14:35)
[2019-01-27] MEDS ORDERED: HYDROCODONE/ACETAMINOPHEN 5-325 MG TABLET PO ONE (14:35)
--- NOTE | 2019-01-27 14:59 | PDOC H&P ---
History of Present Illness Admission Date/PCP: 01/27/19 13:08 CANDIDO ZIMMERMAN MD Patient complains of: Shortness of breath History of Present Illness: CHELSY DE LEON is a 83 year old male with a past medical history significant for CHF, A. fib, CKD 3, CAD, anemia, PVD, vascular dementia, and CABG x5 who is a short-term resident at [facility] for rehab following a left AKA approximately 2 months ago at [facility] who today developed fever, malaise, productive cough (reportedly one episode of hemoptysis), and hypoxia on room air. Evaluation in the emergency department reveals tachypnea, hypoxia on room air, anemia with a hemoglobin of 8.0, normal WBC, chemistry revealing creatinine of 1.33 (unknown baseline), proBNP of 16,000, EKG showing sinus rhythm with an RBBB (present on prior EKGs), and CTA Chest is negative for PE but does show extensiv e bilateral pneumonia. Patient is provided IV vancomycin and Zosyn; is referred to the hospitalist misti thao for admission and management of the above-stated complaints and findings. Past Medical History Cardiac Medical History: Reports: Atrial Fibrillation, Congestive Heart Failure, Coronary Artery Disease, Myocardial Infarction - 2000, Hypertension Pulmonary Medical History: Denies: Asthma, Bronchitis, Chronic Obstructive Pulmonary Disease (COPD), Pneumonia EENT Medical History: Reports: None Neurological Medical History: Denies: Ischemic CVA, Seizures Endocrine Medical History: Reports: None Renal/ Medical History: Reports: Chronic Kidney Disease Malignancy Medical History: Reports: None GI Medical History: Musculoskeltal Medical History: Reports: Arthritis Psychiatric Medical History: Reports: Dementia Traumatic Medical History: Reports: None Hematology: Denies: Anemia Past Surgical History Past Surgical History: Reports: Coronary Artery Bypass Graft, Other - Left AKA Denies: Pacemaker Social History Information Source: Patient, Relative, H Records, Outside Facility Records Lives with: [facility] For short-term rehab Smoking Status: Former Smoker Frequency of Alcohol Use: None Hx Recreational Drug Use: No Drugs: None Hx Prescription Drug Abuse: No - Advance Directive Resuscitation Status: Full Code Surrogate healthcare decision maker:: The patient's , Rocio De Leon, Family History Family History: Reviewed & Not Pertinent Parental Family History Reviewed: Yes Children Family History Reviewed: Yes Sibling(s) Family History Reviewed.: Yes Medication/Allergy Home Medications: Amlodipine Besylate 1 tab PO DAILY 02/04/18 Aspirin [Aspirin 81 mg Chewable Tablet] 1 tab PO DAILY 02/04/18 Atorvastatin Calcium [Lipitor 40 mg Tablet] 1 tab PO QHS 02/04/18 Colchicine [Colcrys] 1 tab PO DAILY PRN 02/04/18 Furosemide [Lasix 20 mg Tablet] 1 tab PO DAILY 02/04/18 Lisinopril 1 tab PO DAILY 02/04/18 Metoprolol Tartrate 1 tab PO BID 02/04/18 Nitroglycerin [Nitrostat 0.4 mg (1/150 Gr) Tabs 25/Bottle] 1 tab PO ASDIR PRN 02/04/18 Allergies/Adverse Reactions: zolpidem [From Ambien] Adverse Reaction (Verified 03/10/18 09:14) extreme confusion Review of Systems Constitutional: PRESENT: chills, fatigue, fever(s). ABSENT: headache(s), weight gain, weight loss Eyes: ABSENT: visual disturbances Ears: ABSENT: hearing changes Cardiovascular: ABSENT: chest pain, dyspnea on exertion, edema, orthropnea, palpitations Respiratory: PRESENT: cough, hemoptysis Gastrointestinal: ABSENT: abdominal pain, constipation, diarrhea, hematemesis, hematochezia, nausea, vomiting Genitourinary: ABSENT: dysuria, hematuria Musculoskeletal: PRESENT: other - Gout to right great toe. ABSENT: joint swelling Integumentary: ABSENT: rash, wounds Neurological: ABSENT: abnormal gait, abnormal speech, confusion, dizziness, focal weakness, syncope Psychiatric: ABSENT: anxiety, depression, homidical ideation, suicidal ideation Endocrine: ABSENT: cold intolerance, heat intolerance, polydipsia, polyuria Hematologic/Lymphatic: ABSENT: easy bleeding, easy bruising Physical Exam Vital Signs: Temp Pulse Resp BP Pulse Ox 98.2 F 95 20 150/88 H 96 01/27/19 09:33 01/27/19 09:33 01/27/19 14:01 01/27/19 14:01 01/27/19 14:01 Intake & Output 01/26/19 01/27/19 01/28/19 06:59 06:59 06:59 Weight 79.379 kg General appearance: PRESENT: no acute distress, cooperative, well-developed, well-nourished, other - Acutely ill-appearing Head exam: PRESENT: atraumatic, normocephalic Eye exam: PRESENT: conjunctiva pink, EOMI, PERRLA. ABSENT: scleral icterus Ear exam: PRESENT: normal external ear exam Mouth exam: PRESENT: moist, tongue midline Neck exam: ABSENT: carotid bruit, JVD, lymphadenopathy, thyromegaly Respiratory exam: PRESENT: rhonchi - Throughout, symmetrical, unlabored, other - Supplemental oxygen via nasal cannula 2 L/min. ABSENT: rales, wheezes Cardiovascular exam: PRESENT: RRR, +S1, +S2. ABSENT: diastolic murmur, rubs, systolic murmur Pulses: PRESENT: normal dorsalis pedis pul Vascular exam: PRESENT: normal capillary refill GI/Abdominal exam: PRESENT: normal bowel sounds, soft. ABSENT: distended, guarding, mass, organolmegaly, rebound, tenderness Rectal exam: PRESENT: deferred Extremities exam: PRESENT: full ROM, tenderness - Right great toe with erythema, other - Left AKA. ABSENT: calf tenderness, clubbing, pedal edema Neurological exam: PRESENT: alert, awake, oriented to person, oriented to place, oriented to time, oriented to situation, CN II-XII grossly intact. ABSENT: destinee r sensory deficit Psychiatric exam: PRESENT: appropriate affect, normal mood. ABSENT: homicidal ideation, suicidal ideation Skin exam: PRESENT: dry, intact, warm. ABSENT: cyanosis, rash Results Laboratory Results: 01/27/19 09:40 01/27/19 09:40 01/27/19 01/27/19 09:40 09:40 WBC 10.2 RBC 3.02 L Hgb 8.0 L Hct 24.7 L MCV 82 MCH 26.5 L MCHC 32.3 RDW 18.3 H Plt Count 295 Seg Neutrophils % 84.7 H Sodium 136.6 L Potassium 4.0 Chloride 103 Carbon Dioxide 26 Anion Gap 8 BUN 32 H Creatinine 1.33 H Est GFR ( Amer) > 60 Glucose 108 Calcium 8.5 Total Bilirubin 0.4 AST 40 Alkaline Phosphatase 107 Total Protein 6.3 Albumin 2.9 L 01/27/19 09:40 Troponin I 0.030 NT-Pro-B Natriuret Pep 64562 H Impressions: Chest X-Ray 01/27/19 00:00 IMPRESSION: Extensive perihilar and bilateral alveolar and interstitial airspace disease most likely pulmonary edema. Infectious process is thought to be less likely. There are small effusions. Chest/Abdomen CTA 01/27/19 10:41 IMPRESSION: 1. Negative examination for pulmonary embolism. 2. There is extensive bilateral perihilar ground-glass opacity and consolidat ion, most consistent with infection. Asymmetric edema may have this appearance. 3. Moderate bilateral pleural effusions and associated atelectasis or consolidation. 4. Cardiomegaly. Assessment and Plan - Diagnosis (1) Bacterial pneumonia Is this a current diagnosis for this admission?: Yes Plan: Noted on CTA chest. Patient is at risk for healthcare associated pneumonia given current placement at [facility] for short-term rehab. Blood and sputum cultures are pending. He is admitted to the medical floor and continuous cardiac telemetry. He was started on IV vancomycin and Zosyn. I will provide supplemental oxygen to maintain saturations. Schedule and as needed nebulizer treatments. Mucinex twice daily, Robitussin as needed for cough. Incentive spirometer to bedside. (2) Chronic systolic CHF (congestive heart failure) Is this a current diagnosis for this admission?: Yes Plan: No echocardiogram on file, although he stress test from 2018 has an LVEF of 39%. Chest x-ray demonstrates pulmonary edema, although chest CT more indicative of pneumonia. proBNP elevated to 16,000; possibly related to acute respiratory failure with hypoxia secondary to pneumonia. We will resume home dose antihypertensives and furosemide once reconciled. Cardiac diet. Daily weights. We will avoid IV fluids for now as the patient has adequate blood pressures and normal heart rate. (3) Acute respiratory failure with hypoxia Is this a current diagnosis for this admission?: Yes Plan: Secondary to #1 and 2. Evaluation management as above. (4) CKD (chronic kidney disease) Is this a current diagnosis for this admission?: Yes Plan: Creatinine of 1.33; unknown baseline. Although medical records indicate patient has a history of CKD 3. Avoid nephrotoxic medications as able. Pharmacy to dose vancomycin. Monitor with daily chemistries. (5) CAD (coronary artery disease) Is this a current diagnosis for this admission?: Yes Plan: Troponin is indeterminately elevated at 0.30, although must be considered related to his CKD and hypoxia secondary to pneumonia. Patient is currently chest pain-free. EKG demonstrates NSR with RBBB; unchanged from prior. We will continue home dose aspirin, atorvastatin, and antihypertensives once reconciled. Monitor on continuous cardiac telemetry. (6) Elevated brain natriuretic peptide (BNP) level Is this a current diagnosis for this admission?: Yes Plan: Related #2, evaluation management as above. (7) Gout Qualifiers: Gout site: foot Gout etiology: unspecified cause Chronicity: acute Laterality: right Qualified Code(s): M10.9 - Gout, unspecified Is this a current diagnosis for this admission?: Yes Plan: Colchicine 1.2 mg now followed by 0.6 mg in 1 hour and then daily x4 days. [place] for pain.
[2019-01-27] MEDS ORDERED: VANCOMYCIN HCL 0 MG in DEXTROSE 5%-WATER 250 ML IV NR (15:00)
[2019-01-27] MEDS: IPRATROPIUM/ALBUTEROL 0.5-2.5 MG/3 ML AMPUL NEB SCH (15:27)
[2019-01-27] MEDS: HEPARIN SOD (PORCINE) 5,000 UNIT/ML 1 ML VIAL SUBCUT SCH ×2 (18:21→21:38)
[2019-01-27] MEDS: PIPERACILLIN SODIUM/TAZOBACTAM 3.375 GM in NORMAL SALINE 100 ML IV SCH (18:28)
[2019-01-27] MEDS: GUAIFENESIN 600 MG TABLET.SA PO SCH (21:38)
[2019-01-27] MEDS: FAMOTIDINE 20 MG TABLET PO SCH (21:38)
[2019-01-28] MEDS: IPRATROPIUM/ALBUTEROL 0.5-2.5 MG/3 ML AMPUL NEB SCH ×3 (00:09→15:18)
[2019-01-28] MEDS: PIPERACILLIN SODIUM/TAZOBACTAM 3.375 GM in NORMAL SALINE 100 ML IV SCH ×4 (00:46→17:52)
[2019-01-28 05:49] LABS: ABSOLUTE BASOPHILS # (AUTO) 0.1 10^3/uL (0.0-0.2); ABSOLUTE EOSINOPHILS # (AUTO) 0.8 10^3/uL (0.0-0.6); ABSOLUTE LYMPHOCYTES (AUTO) 0.9 10^3/uL (0.5-4.7); ABSOLUTE MONOCYTES (AUTO) 0.6 10^3/uL (0.1-1.4); ABSOLUTE NEUT (AUTO) 7.6 10^3/uL (1.7-8.2); BASOPHILS % (AUTO) 0.9 % (0-2); EOSINOPHILS % (AUTO) 8.2 % (0-6); LYMPHOCYTES % (AUTO) 9.2 % (13-45); MEAN CORPUSCULAR HEMOGLOBIN 26.9 pg (27.0-33.4); MEAN CORPUSCULAR HGB CONC 33.1 g/dL (32.0-36.0); MEAN CORPUSCULAR VOLUME 81 fl (80-97); MONOCYTES % (AUTO) 6.1 % (3-13); PLATELET COUNT 261 10^3/uL (150-450); RED BLOOD COUNT 2.71 10^6/uL (4.35-5.55); RED CELL DISTRIBUTION WIDTH 18.1 % (11.5-14.0); SEGMENTED NEUTROPHILS % (AUTO) 75.6 % (42-78); TOTAL CELLS COUNTED % (AUTO) 100 %; WHITE BLOOD COUNT 10.1 10^3/uL (4.0-10.5)
[2019-01-28 05:51] LABS: HEMOGLOBIN 7.3 g/dL (13.5-17.0)
[2019-01-28 06:05] LABS: ANION GAP 6 (5-19); BLOOD UREA NITROGEN 34 mg/dL (7-20); CALCIUM 8.2 mg/dL (8.4-10.2); CARBON DIOXIDE 26 mmol/L (22-30); CHLORIDE 107 mmol/L (98-107); GLUCOSE 99 mg/dL (75-110); POTASSIUM 3.9 mmol/L (3.6-5.0)
[2019-01-28] MEDS: HEPARIN SOD (PORCINE) 5,000 UNIT/ML 1 ML VIAL SUBCUT SCH ×3 (06:15→21:55)
[2019-01-28] MEDS ORDERED: NORMAL SALINE 250 ML IV PRN ×2 (07:51)
[2019-01-28] MEDS ORDERED: FUROSEMIDE INJ/PF 20 MG/2 ML SDV IV PRN (07:51)
[2019-01-28] MEDS ORDERED: (PENDING PHARMACY ID) (Melatonin [Melatonin] 5 MG) PO PRN (07:52)
[2019-01-28] MEDS ORDERED: MELATONIN 5 MG TABLET PO PRN (08:21)
[2019-01-28] MEDS: TAMSULOSIN HCL 0.4 MG CAP.SR.24H PO SCH (09:57)
[2019-01-28] MEDS: FAMOTIDINE 20 MG TABLET PO SCH ×2 (09:57→21:54)
[2019-01-28] MEDS: MULTIVITAMIN TABLET PO SCH (09:57)
[2019-01-28] MEDS: GUAIFENESIN 600 MG TABLET.SA PO SCH ×2 (09:58→21:55)
[2019-01-28] MEDS: ASCORBIC ACID 500 MG TABLET PO SCH (09:58)
[2019-01-28] MEDS: CALCIUM CARBONATE 500 MG TABLET PO SCH ×2 (09:58→17:52)
[2019-01-28] MEDS ORDERED: (PENDING PHARMACY ID) (Ascorbic Acid [Vitamin C] 500 MG) PO SCH (10:00)
[2019-01-28] MEDS ORDERED: AZITHROMYCIN 500 MG in DEXTROSE 5%-WATER 250 ML IV SCH (10:00)
[2019-01-28] MEDS ORDERED: CEFTRIAXONE 1 GM/D5W RTU 1 GM/50 ML RTUPB IV SCH (10:00)
[2019-01-28] MEDS ORDERED: (PENDING PHARMACY ID) (Calcium Carbonate [Calcium] 600 MG) PO SCH (10:00)
[2019-01-28] MEDS: VANCOMYCIN HCL 1,250 MG in DEXTROSE 5%-WATER 250 ML IV SCH (10:02)
--- NOTE | 2019-01-28 17:05 | Progress Note Acknowledgement ---
Progress Note Acknowledgement Progess Note Acknowledgement: I, the undersigned member of the medical staff with appropriate privileges and with supervisory authority over Mildred Rodriguez, a [facility] allied health professional, acknowledge that I have reviewed the progress notes entered on this patient, and in my professional judgment believe that the assessment made and/or any care evidenced was appropriate
--- NOTE | 2019-01-28 17:31 | PDOC PROGRESS REPORT ---
Subjective Progress Note for:: 01/28/19 Subjective:: CHELSY DE LEON is a 83 year old male with a past medical history significant for CHF, A. fib, CKD 3, CAD, anemia, PVD, vascular dementia, and CABG x5 who is a short-term resident at [facility] for rehab following a left AKA approximately 2 months ago at [facility] who was admitted 01/27/19 for pneumonia. The patient was seen on morning rounds. He is found resting in bed comfortably on supplemental oxygen; he is not home O2 dependent. He tells me that he is feeling well today, however, he is noted to be fatigued. He does fall back to sleep multiple times during her conversation, but wakes easily when I say his name. He denies fever, chills, chest pain, dyspnea, abdominal pain, nausea, vomiting, diarrhea. He is noted to have a wet sounding cough during our discussion. He has no new questions or concerns at this time. No concerns per nursing Reason For Visit: PNEUMONIA Physical Exam Vital Signs: Temp Pulse Resp BP Pulse Ox 97.6 F 103 H 16 148/83 H 98 01/28/19 15:47 01/28/19 15:47 01/28/19 15:47 01/28/19 15:47 01/28/19 15:47 Intake & Output 01/27/19 01/28/19 01/29/19 06:59 06:59 06:59 Intake Total 786 700 Balance 786 700 Weight 75.2 kg General appearance: PRESENT: no acute distress, cooperative, well-developed, well-nourished, other - Acutely ill-appearing Head exam: PRESENT: atraumatic, normocephalic Eye exam: PRESENT: conjunctiva pink, EOMI, PERRLA. ABSENT: scleral icterus Ear exam: PRESENT: normal external ear exam Mouth exam: PRESENT: moist, tongue midline Neck exam: ABSENT: carotid bruit, JVD, lymphadenopathy, thyromegaly Respiratory exam: PRESENT: rhonchi, symmetrical, unlabored, other - Supplemental oxygen via nasal cannula. ABSENT: rales, wheezes Cardiovascular exam: PRESENT: RRR, +S1, +S2. ABSENT: diastolic murmur, rubs, systolic murmur Pulses: PRESENT: normal dorsalis pedis pul Vascular exam: PRESENT: normal capillary refill GI/Abdominal exam: PRESENT: normal bowel sounds, soft. ABSENT: distended, gua rding, mass, organolmegaly, rebound, tenderness Rectal exam: PRESENT: deferred Extremities exam: PRESENT: full ROM, tenderness - Right great toe erythema, other - Left AKA. ABSENT: calf tenderness, clubbing, pedal edema Neurological exam: PRESENT: alert, awake, oriented to person, oriented to place, oriented to time, oriented to situation, CN II-XII grossly intact. ABSENT: motor sensory deficit Psychiatric exam: PRESENT: appropriate affect, normal mood. ABSENT: homicidal ideation, suicidal ideation Skin exam: PRESENT: dry, intact, warm. ABSENT: cyanosis, rash Results Laboratory Results: 01/28/19 05:31 01/28/19 05:31 01/28/19 01/28/19 01/28/19 05: 05: 08:04 WBC 10.1 RBC 2.71 L Hgb 7.3 L Hct 22.0 L MCV 81 MCH 26.9 L MCHC 33.1 RDW 18.1 H Plt Count 261 Seg Neutrophils % 75.6 Sodium 138.9 Potassium 3.9 Chloride 107 Carbon Dioxide 26 Anion Gap 6 BUN 34 H Creatinine 1.46 H Est GFR ( Amer) 56 L Glucose 99 Calcium 8.2 L Blood Type O POSITIVE Antibody Screen POSITIVE 01/27/19 09:40 Troponin I 0.030 NT-Pro-B Natriuret Pep 39140 H Impressions: Chest X-Ray 01/27/19 00:00 IMPRESSION: Extensive perihilar and bilateral alveolar and interstitial airspace disease most likely pulmonary edema. Infectious process is thought to be less likely. There are small effusions. Chest/Abdomen CTA 01/27/19 10:41 IMPRESSION: 1. Negative examination for pulmonary embolism. 2. There is extensive bilateral perihilar ground-glass opacity and consolidation, most consistent with infection. Asymmetric edema may have this appearance. 3. Moderate bilateral pleural effusions and associated atelectasis or consol idation. 4. Cardiomegaly. Assessment and Plan - Diagnosis (1) Bacterial pneumonia Is this a current diagnosis for this admission?: Yes Plan: Noted on CTA chest. Patient is at risk for healthcare associated pneumonia given current placement at [facility] for short-term rehab. Blood cultures are negative at 24 hours. Sputum cultures are pending. He is admitted to the medical floor and continuous cardiac telemetry. Continue IV vancomycin and Zosyn for HAP Supplemental oxygen to maintain saturations. Schedule and as needed nebulizer treatments. Mucinex twice daily, Robitussin as needed for cough. Incentive spirometer to bedside. (2) Chronic systolic CHF (congestive heart failure) Is this a current diagnosis for this admission?: Yes Plan: No echocardiogram on file, although he stress test from 2018 has an LVEF of 39%. Chest x-ray demonstrates pulmonary edema, although chest CT more indicative of pneumonia. proBNP elevated to 16,000; possibly related to acute respiratory failure with hypoxia secondary to pneumonia. Medications have been reconciled; he does not appear to be on antihypertensives. Will consider need for lisinopril/metoprolol. Continue ASA and statin therapy. Cardiac diet. Daily weights. We will avoid IV fluids for now as the patient has adequate blood pressures and normal heart rate. (3) Acute respiratory failure with hypoxia Is this a current diagnosis for this admission?: Yes Plan: Secondary to #1 and 2. Evaluation management as above. (4) CKD (chronic kidney disease) Is this a current diagnosis for this admission?: Yes Plan: Creatinine of 1.33; unknown baseline. Although medical records indicate patient has a history of CKD 3. Avoid nephrotoxic medications as able. Pharmacy to dose vancomycin. Monitor with daily chemistries. (5) CAD (coronary artery disease) Is this a current diagnosis for this admission?: Yes Plan: Troponin is indeterminately elevated at 0.30, although must be considered related to his CKD and hypoxia secondary to pneumonia. Patient is currently chest pain-free. EKG demonstrates NSR with RBBB; unchanged from prior. We will continue home dose aspirin and atorvastatin Monitor on continuous cardiac telemetry. (6) Elevated brain natriuretic peptide (BNP) level Is this a current diagnosis for this admission?: Yes Plan: Related #2, evaluation management as above. (7) Gout Qualifiers: Gout site: foot Gout etiology: unspecified cause Chronicity: acute Lat erality: right Qualified Code(s): M10.9 - Gout, unspecified Is this a current diagnosis for this admission?: Yes Plan: Colchicine 1.2 mg now followed by 0.6 mg in 1 hour and then daily x4 days. [place] for pain. (8) Anemia Qualifiers: Anemia type: unspecified type Qualified Code(s): D64.9 - Anemia, unspecified Is this a current diagnosis for this admission?: Yes Plan: Hgb 8.0 on admission -> 7.3 today. Baseline 12 Has received ~1L IV fluids/abx Occult stool is negative Plan to transfuse 2 units PRBC secondary to continued hypoxia/tachycardia - Time Time Spent with patient: 25-34 minutes Medications reviewed and adjusted accordingly: Yes Anticipated discharge: Home
[2019-01-28] MEDS: ATORVASTATIN CALCIUM 40 MG TABLET PO SCH (21:54)
[2019-01-28] MEDS: MIRTAZAPINE 15 MG TABLET PO SCH (21:55)
[2019-01-29] MEDS: IPRATROPIUM/ALBUTEROL 0.5-2.5 MG/3 ML AMPUL NEB SCH ×4 (00:18→20:30)
[2019-01-29] MEDS: PIPERACILLIN SODIUM/TAZOBACTAM 3.375 GM in NORMAL SALINE 100 ML IV SCH ×6 (06:39→19:09)
[2019-01-29] MEDS: HEPARIN SOD (PORCINE) 5,000 UNIT/ML 1 ML VIAL SUBCUT SCH ×3 (06:39→22:40)
[2019-01-29 07:06] LABS: HEMATOCRIT 30.5 % (37.9-51.0); MEAN CORPUSCULAR HEMOGLOBIN 26.7 pg (27.0-33.4); MEAN CORPUSCULAR HGB CONC 32.8 g/dL (32.0-36.0); MEAN CORPUSCULAR VOLUME 82 fl (80-97); PLATELET COUNT 266 10^3/uL (150-450); RED BLOOD COUNT 3.74 10^6/uL (4.35-5.55); RED CELL DISTRIBUTION WIDTH 17.4 % (11.5-14.0); WHITE BLOOD COUNT 12.1 10^3/uL (4.0-10.5)
[2019-01-29 07:18] LABS: ANION GAP 10 (5-19); BLOOD UREA NITROGEN 34 mg/dL (7-20); CALCIUM 8.6 mg/dL (8.4-10.2); CARBON DIOXIDE 22 mmol/L (22-30); CHLORIDE 107 mmol/L (98-107); GLUCOSE 104 mg/dL (75-110); POTASSIUM 4.4 mmol/L (3.6-5.0)
[2019-01-29] MEDS: FAMOTIDINE 20 MG TABLET PO SCH ×2 (09:26→22:41)
[2019-01-29] MEDS: GUAIFENESIN 600 MG TABLET.SA PO SCH ×2 (09:26→22:41)
[2019-01-29] MEDS: ASCORBIC ACID 500 MG TABLET PO SCH (09:26)
[2019-01-29] MEDS: MULTIVITAMIN TABLET PO SCH (09:26)
[2019-01-29] MEDS: CALCIUM CARBONATE 500 MG TABLET PO SCH ×2 (09:26→19:09)
[2019-01-29] MEDS: TAMSULOSIN HCL 0.4 MG CAP.SR.24H PO SCH (09:26)
[2019-01-29] MEDS: VANCOMYCIN HCL 1,250 MG in DEXTROSE 5%-WATER 250 ML IV SCH (09:31)
[2019-01-29] MEDS ORDERED: NORMAL SALINE 1000 ML 1,000 ML IV PRN (10:56)
[2019-01-29 11:51] LABS: INTERNATIONAL RATION (INR) 1.23; PARTIAL THROMBOPLASTIN TIME 28.8 SEC (23.5-35.8); PROTHROMBIN TIME 15.6 SEC (11.4-15.4)
[2019-01-29 12:03] LABS: TOTAL PROTEIN 5.5 g/dL (6.3-8.2)
[2019-01-29 13:06] LABS: ARTERIAL BLOOD BASE EXCESS -2.6 mmol/L; ARTERIAL BLOOD H2CO3 0.97 mmol/L (1.05-1.35); ARTERIAL BLOOD HCO3 20.9 mmol/L (20-24); ARTERIAL BLOOD O2 SATURATION 95.3 % (94-98); ARTERIAL BLOOD PCO2 32.3 mmHg (35-45); ARTERIAL BLOOD PH 7.43 (7.35-7.45); ARTERIAL BLOOD PO2 73.3 mmHg (80-100); ARTERIAL BLOOD TOTAL CO2 21.9 mmol/L (23-27)
[2019-01-29 13:08] LABS: ARTERIAL BLOOD FIO2 3L
--- NOTE | 2019-01-29 15:20 | RADIOLOGY REPORT (SQ) ---
EXAM DESCRIPTION: CHEST SINGLE VIEW COMPLETED DATE/TIME: 01/29/2019 3:09 pm REASON FOR STUDY: increased dyspsnea, hemoptysis COMPARISON: 01/27/2019. FINDINGS: Single-view chest AP portable upright. Generally stable appearance allowing for differences in technique. Extensive alveolar infiltrates with perihilar predominance. Mixed interstitial and airspace disease as before. Mild pleural effusions. No pneumothorax. TECHNICAL DOCUMENTATION: JOB ID: [id number] Reading location - IP/workstation name: [email or web address]
--- NOTE | 2019-01-29 15:49 | PDOC PROGRESS REPORT ---
Subjective Progress Note for:: 01/29/19 Subjective:: CHELSY DE LEON is a 83 year old male with a past medical history significant for CHF, A. fib, CKD 3, CAD, anemia, PVD, vascular dementia, and CABG x5 who is a short-term resident at [facility] for rehab following a left AKA approximately 2 months ago at [facility] who was admitted 01/27/19 for pneumonia. The patient was seen on morning rounds. He is found resting in bed on supplemental oxygen at 3 lpm; he is not home O2 dependent. He states he is not feeling well today, but then is unable to specify his symptoms. He is noted to have 3 episodes of hemoptysis today; thick dark blood with a small amount of sputum, he is also noted to have increased work of breathing. He does endorse left posterior chest wall pain with inspiration and deep cough. He denies fever, chills, abdominal pain, nausea, vomiting, diarrhea. No concerns per nursing Reason For Visit: PNEUMONIA Physical Exam Vital Signs: Temp Pulse Resp BP Pulse Ox 97.7 F 93 20 148/90 H 93 01/29/19 12:06 01/29/19 14:21 01/29/19 14:21 01/29/19 12:06 01/29/19 14:21 Intake & Output 01/28/19 01/29/19 01/30/19 06:59 06:59 06:59 Intake Total 786 2270 Balance 786 2270 Weight 75.2 kg 75.8 kg General appearance: PRESENT: no acute distress, cooperative, well-developed, well-nourished, other - Acutely ill-appearing, fatigue Head exam: PRESENT: atraumatic, normocephalic Eye exam: PRESENT: conjunctiva pink, EOMI, PERRLA. ABSENT: scleral icterus Ear exam: PRESENT: normal external ear exam Mouth exam: PRESENT: dry mucosa, tongue midline Neck exam: ABSENT: carotid bruit, JVD, lymphadenopathy, thyromegaly Respiratory exam: PRESENT: accessory muscle use, rhonchi - Throughout, symme trical, tachypnea. ABSENT: rales, wheezes Cardiovascular exam: PRESENT: RRR, +S1, +S2. ABSENT: diastolic murmur, rubs, systolic murmur Pulses: PRESENT: normal dorsalis pedis pul Vascular exam: PRESENT: normal capillary refill GI/Abdominal exam: PRESENT: normal bowel sounds, soft. ABSENT: distended, guarding, mass, organolmegaly, rebound, tenderness Rectal exam: PRESENT: deferred Extremities exam: PRESENT: full ROM, other - Left AKA. ABSENT: calf tenderness, clubbing, pedal edema Neurological exam: PRESENT: alert, awake, oriented to person, oriented to place, oriented to time, oriented to situation, CN II-XII grossly intact, other - Lethargic. ABSENT: motor sensory deficit Psychiatric exam: PRESENT: appropriate affect, normal mood. ABSENT: homicidal ideation, suicidal ideation Skin exam: PRESENT: dry, intact, warm. ABSENT: cyanosis, rash Results Laboratory Results: 01/29/19 06:39 01/29/19 06:39 01/28/19 01/29/19 01/29/19 08:04 06:39 06:39 WBC 12.1 H RBC 3.74 L Hgb 10.0 L D Hct 30.5 L MCV 82 MCH 26.7 L MCHC 32.8 RDW 17.4 H Plt Count 266 Carbonic Acid HCO3/H2CO3 Ratio ABG pH ABG pCO2 ABG pO2 ABG HCO3 ABG O2 Saturation ABG Base Excess FiO2 Sodium 139.2 Potassium 4.4 Chloride 107 Carbon Dioxide 22 Anion Gap 10 BUN 34 H Creatinine 1.55 H Est GFR ( Amer) 52 L Glucose 104 Calcium 8.6 Total Protein Blood Type O POSITIVE Antibody Screen POSITIVE 01/29/19 01/29/19 11:37 12:45 WBC RBC Hgb Hct MCV MCH MCHC RDW Plt Count Carbonic Acid 0.97 L HCO3/H2CO3 Ratio 21:1 ABG pH 7.43 ABG pCO2 32.3 L ABG pO2 73.3 L ABG HCO3 20.9 ABG O2 Saturation 95.3 ABG Base Excess -2.6 FiO2 3L Sodium Potassium Chloride Carbon Dioxide Anion Gap BUN Creatinine Est GFR ( Amer) Glucose Calcium Total Protein 5.5 L Blood Type Antibody Screen 01/27/19 09:40 Troponin I 0.030 NT-Pro-B Natriuret Pep 03927 H Impressions: Chest/Abdomen CTA 01/27/19 10:41 IMPRESSION: 1. Negative examination for pulmonary embolism. 2. There is extensive bilateral perihilar ground-glass opacity and consolidation, most consistent with infection. Asymmetric edema may have this appearance. 3. Moderate bilateral pleural effusions and associated atelectasis or consolidation. 4. Cardiomegaly. Assessment and Plan - Diagnosis (1) Bacterial pneumonia Is this a current diagnosis for this admission?: Yes Plan: Noted on CTA chest. Patient is at risk for healthcare associated pneumonia given current placement at [facility] for short-term rehab. Repeat chest x-ray demonstrates extensive alveolar infiltrates with perihilar predominance and mixed interstitial and airspace disease. Blood cultures are negative at 48 hours. Sputum cultures are pending. Legionella pending He is admitted to the medical floor and continuous cardiac telemetry and pulse oximetry Continue IV vancomycin and Zosyn for HAP. We will add IV Levaquin today Supplemental oxygen to maintain saturations. Schedule and as needed nebulizer treatments; Increased frequency of nebulizer treatments. Mucinex twice daily, Robitussin as needed for cough. Incentive spirometer to bedside. Chest physiotherapy (2) Chronic systolic CHF (congestive heart failure) Is this a current diagnosis for this admission?: Yes Plan: No echocardiogram on file, although he stress test from 2018 has an LVEF of 39%. Chest x-ray demonstrates pulmonary edema, although chest CT more indicative of pneumonia. proBNP elevated to 16,000; possibly related to acute respiratory failure with hypoxia secondary to pneumonia. Medications have been reconciled; he does not appear to be on antihypertensives. Will consider need for lisinopril/metoprolol. Continue ASA and statin therapy. Cardiac diet. Daily weights. Starting on IV fluids today; observe closely for evidence of fluid volume overload. At this time though, patient appears to be dehydrated with dry mucous membranes and poor skin turgor. (3) Acute respiratory failure with hypoxia Is this a current diagnosis for this admission?: Yes Plan: Secondary to #1 and 2. Evaluation management as above. Thoracentesis pending. (4) CKD (chronic kidney disease) Is this a current diagnosis for this admission?: Yes Plan: Creatinine of 1.55; near baseline medical records indicate patient has a history of CKD 3. Avoid nephrotoxic medications as able. Pharmacy to dose vancomycin. Monitor with daily chemistries. (5) CAD (coronary artery disease) Is this a current diagnosis for this admission?: Yes Plan: Troponin is indeterminately elevated at 0.30, although must be considered related to his CKD and hypoxia secondary to pneumonia. Patient is currently chest pain-free. EKG demonstrates NSR with RBBB; unchanged from prior. We will continue home dose aspirin and atorvastatin Monitor on continuous cardiac telemetry. (6) Elevated brain natriuretic peptide (BNP) level Is this a current diagnosis for this admission?: Yes Plan: Related #2, evaluation management as above. (7) Gout Qualifiers: Gout site: foot Gout etiology: unspecified cause Chronicity: acute Laterality: right Qualified Code(s): M10.9 - Gout, unspecified Is this a current diagnosis for this admission?: Yes Plan: Colchicine 1.2 mg now followed by 0.6 mg in 1 hour and then daily x4 days. [place] for pain. (8) Anemia Qualifiers: Anemia type: unspecified type Qualified Code(s): D64.9 - Anemia, unspecified Is this a current diagnosis for this admission?: Yes Plan: Hgb 8.0 -> 7.3-> 10.0 s/p 2 units PRBC Has received ~1L IV fluids/abx Occult stool is negative Patient does have hemoptysis and bilateral pleural effusions on CTA. Patient and family deny recent injury/falls. No outward signs of active bleeding. Monitor with daily CBC. (9) Bilateral pleural effusion Is this a current diagnosis for this admission?: Yes Plan: Moderate pleural effusions noted on CTA. Mild by CXR today. Thoracentesis pending. - Time Time Spent with patient: 35 or more minutes Medications reviewed and adjusted accordingly: Yes - Plan Summary Plan Summary: Patient reviewed w/ Dr. Guevara. Plan for thoracentesis. Patient confirms full code status; if decompensates will not likely tolerate BiPAP and will proceed to ICU.
[2019-01-29] MEDS ORDERED: GLUCAGON,HUMAN RECOMB 1 MG INJ SUBCUT PRN (17:22)
[2019-01-29] MEDS ORDERED: DEXTROSE 40% GEL 15 GM TUBE PO PRN ×2 (17:22)
[2019-01-29] MEDS ORDERED: DEXTROSE 50%-WATER 25 GM/50 ML DISP.SYRIN IV PRN ×2 (17:22)
--- NOTE | 2019-01-29 17:23 | PDOC CONSULTATION ---
Consultation Consult Date: 01/29/19 Attending physician:: APRIL WILSON Provider Consulted: YASMANY NUNEZ Consult reason:: Bilateral effusions History of Present Illness Admission Date/PCP: 01/27/19 13:08 CANDIDO ZIMMERMAN MD Patient complains of: Shortness of breath History of Present Illness: CHELSY DE LEON is a 83 year old male Resents emergency department via ground rescue complaining of shortness of breath, fever, malaise. 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 This is his first admission to hospital for the above symptoms. Patient is found to be in acute respiratory distress, likely due to pneumonia, bilateral pleural effusions. An element of congestive heart failure cannot be ruled out. Being treated with IV antibiotics and oxygen support and pulmonary toilet. Patient's clinical condition is deteriorated. Chest x-ray today shows persisting bilateral pleural effusions right greater than left. Patient is currently eating cold cereal. He is under nasal cannula oxygen. There is no family present. He is short of breath. Past Medical History Cardiac Medical History: Reports: Atrial Fibrillation, Congestive Heart Failure, Coronary Artery Disease, Myocardial Infarction - 2000, Hypertension Pulmonary Medical History: Denies: Asthma, Bronchitis, Chronic Obstructive Pulmonary Disease (COPD), Pneumonia EENT Medical History: Reports: None Neurological Medical History: Denies: Ischemic CVA, Seizures Endocrine Medical History: Reports: None Renal/ Medical History: Reports: Chronic Kidney Disease Malignancy Medical History: Reports: None GI Medical History: Musculoskeltal Medical History: Reports: Arthritis Psychiatric Medical History: Reports: Dementia Denies: Depression Traumatic Medical History: Reports: None Hematology: Denies: Anemia Past Surgical History Past Surgical History: Reports: Coronary Artery Bypass Graft, Other - Left AKA Denies: Pacemaker Social History Information Source: Patient Lives with: [facility] - For short-term rehab Smoking Status: Former Smoker Number of Years Smokin Frequency of Alcohol Use: None Hx Recreational Drug Use: No Drugs: None Hx Prescription Drug Abuse: No - Advance Directive Resuscitation Status: Full Code Family History Family History: None, Reviewed & Not Pertinent Parental Family History Reviewed: No Children Family History Reviewed: No Sibling(s) Family History Reviewed.: No Medication/Allergy Home Medications: Atorvastatin Calcium [Lipitor 40 mg Tablet] 40 mg PO QHS 02/04/18 Colchicine [Colcrys] 0.6 mg PO Q12 02/04/18 Ascorbic Acid [Vitamin C] 500 mg PO DAILY 01/27/19 Aspirin [Ecotrin 81 mg EC Tablet] 81 mg PO DAILY 01/27/19 Calcium Carbonate [Calcium] 600 mg PO BID 01/27/19 Ferrous Sulfate [Feosol 325 mg Tablet] 325 mg PO DAILY 01/27/19 Melatonin 5 mg PO HSP PRN 01/27/19 Mirtazapine 7.5 mg PO QHS 01/27/19 Multivitamin [Tab-A-Hema (Multiple Vitamin) Tablet] 1 tab PO DAILY 01/27/19 Tamsulosin HCl [Flomax 0.4 mg Cap.sr] 0.4 mg PO DAILY 01/27/19 Allergies/Adverse Reactions: zolpidem [From Ambien] Adverse Reaction (Verified 03/10/18 09:14) extreme confusion Review of Systems ROS unobtainable: Due to mental status, Other - Complete complete review of systems due to patient's chronic mental illness, dementia, and shortness of breath Constitutional: PRESENT: other - Significantly cachectic, with obvious work of breathing Physical Exam Vital Signs: Temp Pulse Resp BP Pulse Ox 97.7 F 93 20 148/90 H 93 01/29/19 12:06 01/29/19 14:21 01/29/19 14:21 01/29/19 12:06 01/29/19 14:21 Intake & Output 01/28/19 01/29/19 01/30/19 06:59 06:59 06:59 Intake Total 786 2270 100 Balance 786 2270 100 Weight 75.2 kg 75.8 kg General appearance: PRESENT: other - Alert, chronic distress Head exam: PRESENT: normocephalic Eye exam: PRESENT: EOMI Mouth exam: PRESENT: dry mucosa Neck exam: PRESENT: other - Adenopathy Respiratory exam: PRESENT: accessory muscle use, decreased breath sounds, rhonchi - Labored respiration accessory, wheezes Cardiovascular exam: PRESENT: RRR Pulses: PRESENT: normal carotid pulses, normal radial pulses, normal femoral pulses GI/Abdominal exam: PRESENT: soft Rectal exam: PRESENT: deferred Musculoskeletal exam: PRESENT: other - Nonambulatory Neurological exam: PRESENT: oriented to person, oriented to place, oriented to situation Psychiatric exam: PRESENT: appropriate affect Results Laboratory Results: 01/29/19 06:39 01/29/19 06:39 01/28/19 01/29/19 01/29/19 08:04 06:39 06:39 WBC 12.1 H RBC 3.74 L Hgb 10.0 L D Hct 30.5 L MCV 82 MCH 26.7 L MCHC 32.8 RDW 17.4 H Plt Count 266 Carbonic Acid HCO3/H2CO3 Ratio ABG pH ABG pCO2 ABG pO2 ABG HCO3 ABG O2 Saturation ABG Base Excess FiO2 Sodium 139.2 Potassium 4.4 Chloride 107 Carbon Dioxide 22 Anion Gap 10 BUN 34 H Creatinine 1.55 H Est GFR ( Amer) 52 L Glucose 104 Calcium 8.6 Total Protein Blood Type O POSITIVE Antibody Screen POSITIVE 01/29/19 01/29/19 11:37 12:45 WBC RBC Hgb Hct MCV MCH MCHC RDW Plt Count Carbonic Acid 0.97 L HCO3/H2CO3 Ratio 21:1 ABG pH 7.43 ABG pCO2 32.3 L ABG pO2 73.3 L ABG HCO3 20.9 ABG O2 Saturation 95.3 ABG Base Excess -2.6 FiO2 3L Sodium Potassium Chloride Carbon Dioxide Anion Gap BUN Creatinine Est GFR ( Amer) Glucose Calcium Total Protein 5.5 L Blood Type Antibody Screen 01/27/19 09:40 Troponin I 0.030 NT-Pro-B Natriuret Pep 01110 H Impressions: Chest/Abdomen CTA 01/27/19 10:41 IMPRESSION: 1. Negative examination for pulmonary embolism. 2. There is extensive bilateral perihilar ground-glass opacity and consolidation, most consistent with infection. Asymmetric edema may have this appearance. 3. Moderate bilateral pleural effusions and associated atelectasis or consolidation. 4. Cardiomegaly. Assessment & Plan - Diagnosis (1) Acute respiratory failure with hypoxia Is this a current diagnosis for this admission?: Yes Plan: Impression: Worsening acute pulmonary failure likely multifactorial including bilateral perihilar consolidation, bilateral airspace disease, exacerbation of COPD, and bilateral pleural effusions right greater than left likely parapneumonic; cannot rule out underlying malignancy Recommendations: 1. The patient's level of aggressiveness of care, specifically CODE STATUS needs to be addressed as soon as possible as patient is at high risk for pulmonary deterioration, and need for ventilatory support. 2. I am concerned that any intervention such as CT-guided thoracentesis versus formal chest tubes will throw this patient over into endemic instability, and require acute resuscitation. That in fact may unfold regardless of intervention for pleural effusions. 3. I discussed the above with DONTA Sanchez. We will keep the patient n.p.o. after midnight, and plan for bilateral radiologically guided thoracentesis tomorrow, (4) CAD (coronary artery disease) Is this a current diagnosis for this admission?: Yes (5) CKD (chronic kidney disease) Is this a current diagnosis for this admission?: Yes
[2019-01-29] MEDS ORDERED: FUROSEMIDE INJ/PF 20 MG/2 ML SDV ONE (18:39)
[2019-01-29] MEDS ORDERED: FUROSEMIDE INJ/PF 20 MG/2 ML SDV IV ONE (19:00)
[2019-01-29 19:16] LABS: ARTERIAL BLOOD FIO2 3L; ARTERIAL BLOOD H2CO3 0.92 mmol/L (1.05-1.35); ARTERIAL BLOOD HCO3 18.8 mmol/L (20-24); ARTERIAL BLOOD O2 SATURATION 95.1 % (94-98); ARTERIAL BLOOD PCO2 30.5 mmHg (35-45); ARTERIAL BLOOD PH 7.41 (7.35-7.45); ARTERIAL BLOOD PO2 73.7 mmHg (80-100); ARTERIAL BLOOD TOTAL CO2 19.7 mmol/L (23-27)
[2019-01-29 19:22] LABS: APPEARANCE,URINE SLIGHTLY-CLOUDY; BILIRUBIN,URINE NEGATIVE (NEGATIVE); COLOR,URINE YELLOW; GLUCOSE, URINE NEGATIVE (NEGATIVE); KETONES,URINE NEGATIVE (NEGATIVE); LEUKOCYTE ESTERASE,URINE SMALL (NEGATIVE); NITRITE,URINE NEGATIVE (NEGATIVE); PROTEIN,URINE 30 mg/dL (NEGATIVE); URINE SPECIFIC GRAVITY 1.016; UROBILINOGEN,URINE NEGATIVE mg/dL (<2.0)
[2019-01-29] MEDS: ATORVASTATIN CALCIUM 40 MG TABLET PO SCH (22:41)
[2019-01-29] MEDS: MIRTAZAPINE 15 MG TABLET PO SCH (22:41)
[2019-01-30] MEDS: PIPERACILLIN SODIUM/TAZOBACTAM 3.375 GM in NORMAL SALINE 100 ML IV SCH ×4 (01:00→17:54)
[2019-01-30] MEDS: IPRATROPIUM/ALBUTEROL 0.5-2.5 MG/3 ML AMPUL NEB SCH ×4 (02:19→19:48)
[2019-01-30 04:10] LABS: ABSOLUTE BASOPHILS # (AUTO) 0.1 10^3/uL (0.0-0.2); ABSOLUTE EOSINOPHILS # (AUTO) 0.5 10^3/uL (0.0-0.6); ABSOLUTE LYMPHOCYTES (AUTO) 0.8 10^3/uL (0.5-4.7); ABSOLUTE NEUT (AUTO) 7.9 10^3/uL (1.7-8.2); BASOPHILS % (AUTO) 0.7 % (0-2); EOSINOPHILS % (AUTO) 4.9 % (0-6); HEMATOCRIT 27.6 % (37.9-51.0); HEMOGLOBIN 9.2 g/dL (13.5-17.0); LYMPHOCYTES % (AUTO) 7.7 % (13-45); MEAN CORPUSCULAR HEMOGLOBIN 27.3 pg (27.0-33.4); MEAN CORPUSCULAR HGB CONC 33.3 g/dL (32.0-36.0); MEAN CORPUSCULAR VOLUME 82 fl (80-97); MONOCYTES % (AUTO) 9.9 % (3-13); PLATELET COUNT 250 10^3/uL (150-450); RED BLOOD COUNT 3.37 10^6/uL (4.35-5.55); RED CELL DISTRIBUTION WIDTH 17.3 % (11.5-14.0); SEGMENTED NEUTROPHILS % (AUTO) 76.8 % (42-78); TOTAL CELLS COUNTED % (AUTO) 100 %; WHITE BLOOD COUNT 10.3 10^3/uL (4.0-10.5)
[2019-01-30 04:29] LABS: ANION GAP 11 (5-19); BLOOD UREA NITROGEN 33 mg/dL (7-20); CALCIUM 8.4 mg/dL (8.4-10.2); CARBON DIOXIDE 23 mmol/L (22-30); CHLORIDE 106 mmol/L (98-107); GLUCOSE 105 mg/dL (75-110)
[2019-01-30] MEDS: HEPARIN SOD (PORCINE) 5,000 UNIT/ML 1 ML VIAL SUBCUT SCH ×3 (05:56→22:00)
--- NOTE | 2019-01-30 08:15 | PDOC PROGRESS REPORT ---
Subjective Progress Note for:: 01/30/19 Subjective:: Still short of breath, denies any pain Reason For Visit: PNEUMONIA Physical Exam Vital Signs: Temp Pulse Resp BP Pulse Ox 97.9 F 82 18 147/95 H 95 01/30/19 03:48 01/30/19 07:50 01/30/19 07:50 01/29/19 15:54 01/30/19 07:50 Pulse Oximeter Continuous Start: 01/29/19 17:01 Freq: RTQ4 Status: Hold Protocol: Document 01/29/19 17:46 [facility] (Rec: 01/29/19 17:46 [facility] [id number]) Pulse Oximetry Assessment Oxygen Saturation (92-100) 90 Oxygen Flow Rate (L/min) 3 Oxygen Delivery Method Nasal Cannula Equipment Usage Initial Set Up Continuous Pulse Oximeter 24 Hour Charge Charge Now Continuous SpO2 Machine # [id number] Intake & Output 01/29/19 01/30/19 01/31/19 06:59 06:59 06:59 Intake Total 2270 1187 Output Total 2300 Balance 2270 -1113 Weight 75.8 kg 79.7 kg General appearance: PRESENT: mild distress Respiratory exam: PRESENT: accessory muscle use, tachypnea, other - short of breath Cardiovascular exam: PRESENT: RRR GI/Abdominal exam: PRESENT: hypoactive bowel sounds, soft, other - not distended, not tender Results Laboratory Results: 01/30/19 03:53 01/30/19 03:53 01/29/19 01/29/19 01/29/19 11:37 12:45 18:30 WBC RBC Hgb Hct MCV MCH MCHC RDW Plt Count Seg Neutrophils % Carbonic Acid 0.97 L 0.92 L HCO3/H2CO3 Ratio 21:1 20:1 ABG pH 7.43 7.41 ABG pCO2 32.3 L 30.5 L ABG pO2 73.3 L 73.7 L ABG HCO3 20.9 18.8 L ABG O2 Saturation 95.3 95.1 ABG Base Excess -2.6 -5.0 FiO2 3L 3L Sodium Potassium Chloride Carbon Dioxide Anion Gap BUN Creatinine Est GFR ( Amer) Glucose Calcium Total Protein 5.5 L Urine Color Urine Appearance Urine pH Ur Specific [place] Urine Protein Urine Glucose (UA) Urine Ketones Urine Blood Urine Nitrite Ur Leukocyte Esterase Urine WBC (Auto) Urine RBC (Auto) 01/29/19 01/30/19 01/30/19 19:00 03:53 03:53 WBC 10.3 RBC 3.37 L Hgb 9.2 L Hct 27.6 L MCV 82 MCH 27.3 MCHC 33.3 RDW 17.3 H Plt Count 250 Seg Neutrophils % 76.8 Carbonic Acid HCO3/H2CO3 Ratio ABG pH ABG pCO2 ABG pO2 ABG HCO3 ABG O2 Saturation ABG Base Excess FiO2 Sodium 139.7 Potassium 4.0 Chloride 106 Carbon Dioxide 23 Anion Gap 11 BUN 33 H Creatinine 1.66 H Est GFR ( Amer) 48 L Glucose 105 Calcium 8.4 Total Protein Urine Color YELLOW Urine Appearance SLIGHTLY-CLOUDY Urine pH 5.0 Ur Specific [place] 1.016 Urine Protein 30 H Urine Glucose (UA) NEGATIVE Urine Ketones NEGATIVE Urine Blood NEGATIVE Urine Nitrite NEGATIVE Ur Leukocyte Esterase SMALL H Urine WBC (Auto) 17 Urine RBC (Auto) 1 01/27/19 09:40 Troponin I 0.030 NT-Pro-B Natriuret Pep 97536 H Impressions: Chest/Abdomen CTA 01/27/19 10:41 IMPRESSION: 1. Negative examination for pulmonary embolism. 2. There is extensive bilateral perihilar ground-glass opacity and consolidation, most consistent with infection. Asymmetric edema may have this appearance. 3. Moderate bilateral pleural effusions and associated atelectasis or consolidation. 4. Cardiomegaly. Assessment & Plan - Diagnosis (1) Acute respiratory failure with hypoxia Is this a current diagnosis for this admission?: Yes (2) Bacterial pneumonia Is this a current diagnosis for this admission?: Yes (3) Bilateral pleural effusion Is this a current diagnosis for this admission?: Yes - Plan Summary Plan Summary: A/ Bilateral pneumonia with pleural effusion No acute General Surgery issues identified P/ IR to perform bilateral paracentesis today/tomorrow No General Surgery intervention or procedures planned in this patient. I will sign off. Call me with questions.
[2019-01-30] MEDS: LEVOFLOXACIN 750 MG/D5W RTU 750 MG/150 ML RTUPB IV SCH (09:30)
--- NOTE | 2019-01-30 10:53 | RADIOLOGY REPORT (SQ) ---
EXAM DESCRIPTION: CHEST SINGLE VIEW COMPLETED DATE/TIME: 01/30/2019 10:37 am REASON FOR STUDY: Post Right Thoracentesis COMPARISON: 01/29/2019. EXAM PARAMETERS: NUMBER OF VIEWS: One view. TECHNIQUE: Single frontal radiographic view of the chest acquired. RADIATION DOSE: NA LIMITATIONS: None. FINDINGS: LUNGS AND PLEURA: Decrease in the right pleural effusion. No pneumothorax. Scattered air space disease with some improved aeration. MEDIASTINUM AND HILAR STRUCTURES: No masses. Contour normal. HEART AND VASCULAR STRUCTURES: Heart normal in size. Normal vasculature. BONES: No acute findings. HARDWARE: Sternotomy wires. OTHER: No other significant finding. IMPRESSION: DECREASE IN THE RIGHT PLEURAL EFFUSION WITH NO PNEUMOTHORAX FOLLOWING THORACENTESIS. SC ATTERED AIRSPACE DISEASE WITH SOME IMPROVED AERATION. TECHNICAL DOCUMENTATION: JOB ID: [id number]- All Rights Reserved Reading location - IP/workstation name: [email or web address]
[2019-01-30] MEDS: MULTIVITAMIN TABLET PO SCH (11:05)
[2019-01-30] MEDS: TAMSULOSIN HCL 0.4 MG CAP.SR.24H PO SCH (11:05)
[2019-01-30] MEDS: GUAIFENESIN 600 MG TABLET.SA PO SCH ×2 (11:05→21:59)
[2019-01-30] MEDS: VANCOMYCIN HCL 1,250 MG in DEXTROSE 5%-WATER 250 ML IV SCH (11:05)
[2019-01-30] MEDS: CALCIUM CARBONATE 500 MG TABLET PO SCH ×2 (11:05→17:57)
[2019-01-30] MEDS: FAMOTIDINE 20 MG TABLET PO SCH ×2 (11:06→21:59)
[2019-01-30] MEDS: ASCORBIC ACID 500 MG TABLET PO SCH (11:06)
[2019-01-30 11:32] LABS: FLUID APPEARANCE SLIGHTLY HAZY; FLUID COLOR LIGHT YELLOW; FLUID SOURCE LUNG; FLUID TYPE PLEURAL; FLUID VISCOSITY LIQUID
--- NOTE | 2019-01-30 12:31 | RADIOLOGY REPORT (SQ) ---
EXAM DESCRIPTION: CHEST SINGLE VIEW COMPLETED DATE/TIME: 01/30/2019 12:17 pm REASON FOR STUDY: 2 Hour Post Thoracentesis COMPARISON: 01/30/2019 earlier. FINDINGS: Single-view chest AP portable upright "2 hr thora" No pneumothorax. Stable appearance. Patchy areas of infiltrate as before. Small effusions. TECHNICAL DOCUMENTATION: JOB ID: [id number] Reading location - IP/workstation name: [email or web address]
[2019-01-30] MEDS ORDERED: CARVEDILOL 3.125 MG TABLET PO ONE (14:45)
--- NOTE | 2019-01-30 15:20 | PDOC PROGRESS REPORT ---
Subjective Progress Note for:: 01/30/19 Subjective:: CHELSY DE LEON is a 83 year old male with a past medical history significant for CHF, A. fib, CKD 3, CAD, anemia, PVD, vascular dementia, and CABG x5 who is a short-term resident at [facility] for rehab following a left AKA approximately 2 months ago at [facility] who was admitted 01/27/19 for pneumonia. The patient was seen on morning rounds with his and adult son present. He is found resting in bed on supplemental oxygen at 3 lpm; he is not home O2 dependent. He is noted to be significantly improved today. He has improved alertness/decreased confusion, improved skin tone, decreased work of breathing (tachypnea, retractions, and accessory muscle use have resolved), decreased tachycardia, decreased cough. Patient reports that he is feeling much better today. He does report continued shortness of breath and occasional cough. He is looking forward to the thoracentesis today as he is hoping this will improve his symptoms. He denies fever, chills, abdominal pain, nausea, vomiting, diarrhea. Reviewed plan of care with patient and family members, all questions addressed. No concerns per nursing Reason For Visit: PNEUMONIA Physical Exam Vital Signs: Temp Pulse Resp BP Pulse Ox 97.9 F 87 18 115/88 H 94 01/30/19 12:00 01/30/19 13:42 01/30/19 13:42 01/30/19 12:00 01/30/19 13:42 Pulse Oximeter Continuous Start: 01/29/19 17:01 Freq: RTQ4 Status: Hold Protocol: Document 01/29/19 17:46 [facility] (Rec: 01/29/19 17:46 [facility] [id number]) Pulse Oximetry Assessment Oxygen Saturation (92-100) 90 Oxygen Flow Rate (L/min) 3 Oxygen Delivery Method Nasal Cannula Equipment Usage Initial Set Up Continuous Pulse Oximeter 24 Hour Charge Charge Now Continuous SpO2 Machine # [id number] Intake & Output 01/29/19 01/30/19 01/31/19 06:59 06:59 06:59 Intake Total 2270 1287 500 Output Total 2300 1735 Balance 1540 1013 -1235 Weight 75.8 kg 79.7 kg General appearance: PRESENT: no acute distress, cooperative, well-developed, well-nourished Head exam: PRESENT: atraumatic, normocephalic Eye exam: PRESENT: conjunctiva pink, EOMI, PERRLA. ABSENT: scleral icterus Ear exam: PRESENT: normal external ear exam Mouth exam: PRESENT: moist, tongue midline Neck exam: ABSENT: carotid bruit, JVD, lymphadenopathy, thyromegaly Respiratory exam: PRESENT: decreased breath sounds - Bibasilar, rhonchi, symmetrical, unlabored, other - Supplemental oxygen. ABSENT: rales, wheezes Cardiovascular exam: PRESENT: RRR, +S1, +S2, other - Frequent PVCs. ABSENT: diastolic murmur, rubs, systolic murmur Pulses: PRESENT: normal dorsalis pedis pul Vascular exam: PRESENT: normal capillary refill GI/Abdominal exam: PRESENT: normal bowel sounds, soft. ABSENT: distended, guarding, mass, organolmegaly, rebound, tenderness Rectal exam: PRESENT: deferred Extremities exam: PRESENT: full ROM. ABSENT: calf tenderness, clubbing, pedal edema Neurological exam: PRESENT: alert, awake, oriented to person, oriented to place, oriented to time, oriented to situation, CN II-XII grossly intact. ABSENT: motor sensory deficit Psychiatric exam: PRESENT: appropriate affect, normal mood. ABSENT: homicidal ideation, suicidal ideation Skin exam: PRESENT: dry, intact, warm. ABSENT: cyanosis, rash Results Laboratory Results: 01/30/19 03:53 01/30/19 03:53 01/29/19 01/29/19 01/30/19 18:30 19:00 03:53 WBC 10.3 RBC 3.37 L Hgb 9.2 L Hct 27.6 L MCV 82 MCH 27.3 MCHC 33.3 RDW 17.3 H Plt Count 250 Seg Neutrophils % 76.8 Carbonic Acid 0.92 L HCO3/H2CO3 Ratio 20:1 ABG pH 7.41 ABG pCO2 30.5 L ABG pO2 73.7 L ABG HCO3 18.8 L ABG O2 Saturation 95.1 ABG Base Excess -5.0 FiO2 3L Sodium Potassium Chloride Carbon Dioxide Anion Gap BUN Creatinine Est GFR ( Amer) Glucose Calcium Urine Color YELLOW Urine Appearance SLIGHTLY-CLOUDY Urine pH 5.0 Ur Specific [place] 1.016 Urine Protein 30 H Urine Glucose (UA) NEGATIVE Urine Ketones NEGATIVE Urine Blood NEGATIVE Urine Nitrite NEGATIVE Ur Leukocyte Esterase SMALL H Urine WBC (Auto) 17 Urine RBC (Auto) 1 Fluid Type Fluid Source Fluid Color Fluid Appearance Fluid Viscosity Fluid WBC Fluid RBC 01/30/19 01/30/19 03:53 10:04 WBC RBC Hgb Hct MCV MCH MCHC RDW Plt Count Seg Neutrophils % Carbonic Acid HCO3/H2CO3 Ratio ABG pH ABG pCO2 ABG pO2 ABG HCO3 ABG O2 Saturation ABG Base Excess FiO2 Sodium 139.7 Potassium 4.0 Chloride 106 Carbon Dioxide 23 Anion Gap 11 BUN 33 H Creatinine 1.66 H Est GFR ( Amer) 48 L Glucose 105 Calcium 8.4 Urine Color Urine Appearance Urine pH Ur Specific [place] Urine Protein Urine Glucose (UA) Urine Ketones Urine Blood Urine Nitrite Ur Leukocyte Esterase Urine WBC (Auto) Urine RBC (Auto) Fluid Type PLEURAL Fluid Source LUNG Fluid Color LIGHT YELLOW Fluid Appearance SLIGHTLY HAZY Fluid Viscosity LIQUID Fluid WBC 81 Fluid RBC 787 01/27/19 09:40 Troponin I 0.030 NT-Pro-B Natriuret Pep 65247 H Impressions: Chest/Abdomen CTA 01/27/19 10:41 IMPRESSION: 1. Negative examination for pulmonary embolism. 2. There is extensive bilateral perihilar ground-glass opacity and consolidation, most consistent with infection. Asymmetric edema may have this appearance. 3. Moderate bilateral pleural effusions and associated atelectasis or consolidation. 4. Cardiomegaly. Assessment and Plan - Diagnosis (1) Bacterial pneumonia Is this a current diagnosis for this admission?: Yes Plan: Noted on CTA chest. Patient is at risk for healthcare associated pneumonia given current placement at [facility] for short-term rehab. Repeat chest x-ray demonstrates extensive alveolar infiltrates with perihilar predominance and mixed interstitial and airspace disease. Blood cultures are negative at 72 hours. Sputum cultures show C albicans. Legionella pending Patient was upgraded to ICU yesterday evening due to worsening respiratory status. Following thoracentesis today, patient has demonstrated improved vital signs stability. Therefore he is downgraded to IMCU. Continue IV vancomycin, Zosyn, and Levaquin for HAP Supplemental oxygen to maintain saturations. Schedule and as needed nebulizer treatments. Mucinex twice daily, Robitussin as needed for cough. Incentive spirometer to bedside. Chest physiotherapy (2) Chronic systolic CHF (congestive heart failure) Is this a current diagnosis for this admission?: Yes Plan: No echocardiogram on file, although he stress test from 2018 has an LVEF of 39%. Chest x-ray demonstrates pulmonary edema, although chest CT more indicative of pneumonia. proBNP elevated to 16,000; possibly related to acute respiratory failure with hypoxia secondary to pneumonia. Echocardiogram pending. Medications have been reconciled; he does not appear to be on antihypertensives. Due to frequent PVCs and a 17 beat run of V. tach, will start low-dose carvedilol. Continue ASA and statin therapy. Cardiac diet. Daily weights. (3) Acute respiratory failure with hypoxia Is this a current diagnosis for this admission?: Yes Plan: Secondary to #1 and 2. Evaluation management as above. Thoracentesis completed today; >1L fluid removed. Appears transudative. (4) CKD (chronic kidney disease) Is this a current diagnosis for this admission?: Yes Plan: Creatinine of 1.66; near baseline medical records indicate patient has a history of CKD 3. Avoid nephrotoxic medications as able. Pharmacy to dose vancomycin. Monitor with daily chemistries. (5) CAD (coronary artery disease) Is this a current diagnosis for this admission?: Yes Plan: Troponin is indeterminately elevated at 0.30, although must be considered related to his CKD and hypoxia secondary to pneumonia. Patient is currently chest pain-free. EKG demonstrates NSR with RBBB; unchanged from prior. We will continue home dose aspirin and atorvastatin Monitor on continuous cardiac telemetry. (6) Elevated brain natriuretic peptide (BNP) level Is this a current diagnosis for this admission?: Yes Plan: Related #2, Echocardiogram pending. Remaining evaluation management as above. (7) Gout Qualifiers: Gout site: foot Gout etiology: unspecified cause Chronicity: acute Laterality: right Qualified Code(s): M10.9 - Gout, unspecified Is this a current diagnosis for this admission?: Yes Plan: Improved appearance/discomfort. Treated with colchicine. [place] for pain. (8) Anemia Qualifiers: Anemia type: unspecified type Qualified Code(s): D64.9 - Anemia, unspecified Is this a current diagnosis for this admission?: Yes Plan: Hgb 8.0 -> 7.3-> 10.0 s/p 2 units PRBC-> 9.2 Occult stool is negative Patient does have hemoptysis and bilateral pleural effusions on CTA. Patient and family deny recent injury/falls. No outward signs of active bleeding. Monitor with daily CBC. (9) Bilateral pleural effusion Is this a current diagnosis for this admission?: Yes Plan: Moderate pleural effusions noted on CTA. Mild by CXR Thoracentesis with >1L removed; Appears exudative. Cultures pending. - Time Time Spent with patient: 35 or more minutes Medications reviewed and adjusted accordingly: Yes Anticipated discharge: SNF
[2019-01-30 16:01] LABS: HEMATOCRIT 31.4 % (37.9-51.0); HEMOGLOBIN 10.1 g/dL (13.5-17.0); MEAN CORPUSCULAR HEMOGLOBIN 26.5 pg (27.0-33.4); MEAN CORPUSCULAR HGB CONC 32.2 g/dL (32.0-36.0); MEAN CORPUSCULAR VOLUME 82 fl (80-97); RED BLOOD COUNT 3.81 10^6/uL (4.35-5.55); RED CELL DISTRIBUTION WIDTH 17.7 % (11.5-14.0); WHITE BLOOD COUNT 11.5 10^3/uL (4.0-10.5)
[2019-01-30 16:16] LABS: PLATELET COUNT 269 10^3/uL (150-450)
[2019-01-30 16:23] LABS: ANION GAP 11 (5-19); BLOOD UREA NITROGEN 30 mg/dL (7-20); CALCIUM 8.6 mg/dL (8.4-10.2); CARBON DIOXIDE 24 mmol/L (22-30); CHLORIDE 106 mmol/L (98-107); GLUCOSE 100 mg/dL (75-110); PHOSPHORUS 5.3 mg/dL (2.5-4.5); POTASSIUM 3.8 mmol/L (3.6-5.0)
--- NOTE | 2019-01-30 20:52 | RADIOLOGY REPORT (SQ) ---
EXAM DESCRIPTION: U/S THORACENTESIS WITH IMAGING COMPLETED DATE/TIME: 01/30/2019 10:25 am REASON FOR STUDY: Bilat pleural effusion, hypoxia, hemoptysis, ABLA COMPARISON: CT of the chest dated 01/27/2019. LIMITATIONS: None. PROCEDURE: Procedure, risks, benefit, and alternative explained to patient who then gave written con sent. The posterior right chest wall was marked using ultrasound guidance. A time-out was called fo r correct marking verification. Chest prepped and draped using sterile technique. Local anesthesia a chieved using 10 ml of 1% lidocaine injection. A 6fr Safe-T- Centesis set was introduced into the ri t pleural space. Fluid was aspirated. The catheter was removed and the entry site was covered wit h sterile bandage. No immediate complications noted. Images acquired during the procedure were stored on PACS. FINDINGS: ENTRY SITE: posterior right chest. FLUID VOLUME: 1,060 FLUID ANALYSIS: Straw-colored OTHER: Fluid sent to the lab for testing. IMPRESSION: SUCCESSFUL THORACENTESIS USING ULTRASOUND GUIDANCE. COMMENT: Patient medication list reviewed: Yes- Quality ID# [id number]:Eligible professional attests to doc umenting in the medical record they obtained, updated, or reviewed the patient's current medications. TECHNICAL DOCUMENTATION: JOB ID: [id number] [employer]- All Rights Reserved Reading location - IP/workstation name: [email or web address]
[2019-01-30] MEDS: ATORVASTATIN CALCIUM 40 MG TABLET PO SCH (21:59)
[2019-01-30] MEDS: MIRTAZAPINE 15 MG TABLET PO SCH (21:59)
[2019-01-31] MEDS: PIPERACILLIN SODIUM/TAZOBACTAM 3.375 GM in NORMAL SALINE 100 ML IV SCH ×5 (01:00→23:45)
[2019-01-31] MEDS: IPRATROPIUM/ALBUTEROL 0.5-2.5 MG/3 ML AMPUL NEB SCH ×4 (02:12→20:27)
[2019-01-31 04:21] LABS: HEMATOCRIT 30.4 % (37.9-51.0); MEAN CORPUSCULAR HEMOGLOBIN 26.7 pg (27.0-33.4); MEAN CORPUSCULAR HGB CONC 32.9 g/dL (32.0-36.0); MEAN CORPUSCULAR VOLUME 81 fl (80-97); PLATELET COUNT 249 10^3/uL (150-450); RED BLOOD COUNT 3.74 10^6/uL (4.35-5.55); WHITE BLOOD COUNT 9.2 10^3/uL (4.0-10.5)
[2019-01-31 04:48] LABS: ANION GAP 8 (5-19); BLOOD UREA NITROGEN 32 mg/dL (7-20); CALCIUM 8.2 mg/dL (8.4-10.2); CARBON DIOXIDE 23 mmol/L (22-30); CHLORIDE 110 mmol/L (98-107); GLUCOSE 108 mg/dL (75-110); POTASSIUM 3.8 mmol/L (3.6-5.0)
[2019-01-31] MEDS: HEPARIN SOD (PORCINE) 5,000 UNIT/ML 1 ML VIAL SUBCUT SCH ×3 (06:22→21:44)
[2019-01-31] MEDS: CALCIUM CARBONATE 500 MG TABLET PO SCH ×2 (10:34→17:31)
[2019-01-31] MEDS: ASCORBIC ACID 500 MG TABLET PO SCH (10:34)
[2019-01-31] MEDS: MULTIVITAMIN TABLET PO SCH (10:34)
[2019-01-31] MEDS: TAMSULOSIN HCL 0.4 MG CAP.SR.24H PO SCH (10:34)
[2019-01-31] MEDS: LEVOFLOXACIN 750 MG/D5W RTU 750 MG/150 ML RTUPB IV SCH (10:35)
[2019-01-31] MEDS: VANCOMYCIN HCL 1,250 MG in DEXTROSE 5%-WATER 250 ML IV SCH (10:35)
[2019-01-31] MEDS: GUAIFENESIN 600 MG TABLET.SA PO SCH ×2 (10:35→21:44)
[2019-01-31] MEDS: FAMOTIDINE 20 MG TABLET PO SCH ×2 (10:35→21:45)
[2019-01-31 10:44] LABS: VANCOMYCIN,TROUGH 19.2 ug/mL (5.0-20.0)
--- NOTE | 2019-01-31 11:04 | PDOC PROGRESS REPORT ---
Subjective Progress Note for:: 01/31/19 Subjective:: son Reason For Visit: PNEUMONIA Physical Exam Vital Signs: Temp Pulse Resp BP Pulse Ox 98.3 F 80 19 129/72 H 98 01/31/19 07:22 01/31/19 08:00 01/31/19 07:22 01/31/19 07:22 01/31/19 07:22 Pulse Oximeter Continuous Start: 01/29/19 17:01 Freq: RTQ4 Status: Hold Protocol: Document 01/29/19 17:46 [facility] (Rec: 01/29/19 17:46 [facility] [id number]) Pulse Oximetry Assessment Oxygen Saturation (92-100) 90 Oxygen Flow Rate (L/min) 3 Oxygen Delivery Method Nasal Cannula Equipment Usage Initial Set Up Continuous Pulse Oximeter 24 Hour Charge Charge Now Continuous SpO2 Machine # [id number]-11 Intake & Output 01/30/19 01/31/19 02/01/19 06:59 06:59 06:59 Intake Total 1287 860 Output Total 2300 2485 Balance -1013 -1625 Weight 79.7 kg 78.2 kg General appearance: PRESENT: no acute distress, well-developed - Well-developed but frail-appearing 83-year-old patient resting in bed Head exam: PRESENT: atraumatic, normocephalic Eye exam: PRESENT: conjunctiva pale. ABSENT: scleral icterus Ear exam: PRESENT: normal external ear exam. ABSENT: bleeding, drainage Mouth exam: PRESENT: moist, tongue midline, other - Slight tongue coating Teeth exam: PRESENT: poor dentation Neck exam: ABSENT: JVD, lymphadenopathy, tenderness, tracheal deviation Respiratory exam: PRESENT: decreased breath sounds - Left greater than right, rales - Bilateral, symmetrical. ABSENT: accessory muscle use, rhonchi, tachypnea, wheezes Cardiovascular exam: PRESENT: RRR, +S1, +S2, other - Occasional irregular beats Pulses: PRESENT: other - 1+ dorsalis pedis pulse on the right. Left leg amputated. GI/Abdominal exam: PRESENT: normal bowel sounds, soft. 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 ABSENT: agitated, anxious Focused psych exam: ABSENT: delusional, restlessness Skin exam: PRESENT: dry, other - Right foot bunion stage III ulcer with subcutaneous tissue exposed. Stage I redness on the right heel. Stage II coccyx ulcer with associated excoriation of the perineum and lower buttock areas. Results Laboratory Results: 01/31/19 04:09 01/30/19 01/30/19 01/30/19 10:04 15:53 15:53 WBC 11.5 H RBC 3.81 L Hgb 10.1 L Hct 31.4 L MCV 82 MCH 26.5 L MCHC 32.2 RDW 17.7 H Plt Count 269 Sodium 141.0 Potassium 3.8 Chloride 106 Carbon Dioxide 24 Anion Gap 11 BUN 30 H Creatinine 1.61 H Est GFR ( Amer) 50 L Glucose 100 Calcium 8.6 Phosphorus 5.3 H Magnesium 2.3 Fluid Type PLEURAL Fluid Source LUNG Fluid Color LIGHT YELLOW Fluid Appearance SLIGHTLY HAZY Fluid Viscosity LIQUID Fluid WBC 81 Fluid RBC 787 01/31/19 01/31/19 04:09 04:09 WBC 9.2 RBC 3.74 L Hgb 10.0 L Hct 30.4 L MCV 81 MCH 26.7 L MCHC 32.9 RDW 18.0 H Plt Count 249 Sodium 141.0 Potassium 3.8 Chloride 110 H Carbon Dioxide 23 Anion Gap 8 BUN 32 H Creatinine 1.50 H Est GFR ( Amer) 54 L Glucose 108 Calcium 8.2 L Phosphorus Magnesium Fluid Type Fluid Source Fluid Color Fluid Appearance Fluid Viscosity Fluid WBC Fluid RBC 01/29/19 10:52 Sputum Gram Stain - Final 01/29/19 10:52 Sputum Sputum Culture - Final C.albicans/C.dubliniensis Reduced Normal Ashly 01/29/19 19:00 Catheterized Urine Urine Culture - Final NO GROWTH 2 DAYS 01/27/19 09:40 Troponin I 0.030 NT-Pro-B Natriuret Pep 52648 H Impressions: Chest/Abdomen CTA 01/27/19 10:41 IMPRESSION: 1. Negative examination for pulmonary embolism. 2. There is extensive bilateral perihilar ground-glass opacity and consolidation, most consistent with infection. Asymmetric edema may have this appearance. 3. Moderate bilateral pleural effusions and associated atelectasis or consolidation. 4. Cardiomegaly. Thoracentesis Ultrasound 01/30/19 11:01 IMPRESSION: SUCCESSFUL THORACENTESIS USING ULTRASOUND GUIDANCE.
[2019-01-31] MEDS ORDERED: HYDRALAZINE HCL INJ/PF 20 MG/1 ML SDV IV PRN (19:32)
--- NOTE | 2019-01-31 21:17 | XCELERA REPORT ---
[address] [address] Transthoracic Echocardiogram Report Name: CHELSY DE LEON Age: 83 yrs Gender: Male : 1935 Patient Status: Inpatient Patient Location: ICU^[id number]^A Study Date: 01/31/2019 08:29 AM Height: 69 in Weight: 175 lb BSA: 2.0 m2 Procedure: A two-dimensional transthoracic echocardiogram with color flow and Doppler was performed. Study Quality: Technically suboptimal. Reason For Study: CHF History: CHF. Ordering Physician: APRIL WILSON Performed By: Maureen Li Interpretation Summary The left ventricle is mildly dilated. There is normal left ventricular wall thickness. Difficult to assess LVEF due to poor endocardial visualisation.Probably low normal at 55%. Doppler measurements suggest normal left ventricular diastolic function There is apical wall mild hypokinesis There is no thrombus. No ASD,VSD , or PFO seen. The right ventricle is not well visualized secondary to technical limitations The right atrium is mildly dilated. The left atrium is mildly dilated. There is no evidence of mitral valve prolapse. There is no vegetation seen on the mitral valve. There is no mitral valve stenosis. There is a trace to mild amount of mitral regurgitation There is no aortic valvular vegetation. There is aortic sclerosis without aortic stenosis. There is no aortic valve stenosis There is no LVOT obstruction. No aortic regurgitation is present. There is no tricuspid stenosis. There is a moderate amount of tricuspid regurgitation There is mild pulmonary hypertension by echo RVSP is 38 mm of Hg , with RA mean of 10. There is no pulmonic valvular stenosis. There is a trace amount of pulmonic regurgitation The aortic root is normal size. The inferior vena cava was not visualized There is no pericardial effusion. MMode/2D Measurements & Calculations IVSd: 1.0 cm LVIDd: 6.0 cm FS: 32.7 % Ao root diam: 3.1 cm LVIDs: 4.0 cm EDV(Teich): 176.8 ml Ao root area: 7.5 cm2 LVPWd: 1.1 cm ESV(Teich): 70.4 ml EF(Teich): 60.2 % Doppler Measurements & Calculations MV E max mercedez: MV dec slope: Ao V2 max: LV V1 max P.7 cm/sec 528.8 cm/sec2 147.6 cm/sec 3.5 mmHg MV A max mercedez: MV dec time: 0.18 secAo max PG: LV V1 max: 64.5 cm/sec 8.7 mmHg 93.3 cm/sec MV E/A: 1.5 PA V2 max: TR max mercedez: 94.6 cm/sec 264.5 cm/sec PA max P.6 mmHg TR max P.0 mmHg Left Ventricle The left ventricle is mildly dilated. There is normal left ventricular wall thickness. Difficult to assess LVEF due to poor endocardial visualisation.Probably low normal at 55%. Doppler measurements suggest normal left ventricular diastolic function. There is apical wall mild hypokinesis. There is no thrombus. No ASD,VSD , or PFO seen. Right Ventricle The right ventricle is not well visualized secondary to technical limitations. Atria The right atrium is mildly dilated. The left atrium is mildly dilated. Mitral Valve There is no evidence of mitral valve prolapse. There is no vegetation seen on the mitral valve. There is no mitral valve stenosis. There is a trace to mild amount of mitral regurgitation. Aortic Valve There is no aortic valvular vegetation. There is no aortic valve stenosis. There is aortic sclerosis without aortic stenosis. There is no LVOT obstruction. No aortic regurgitation is present. Tricuspid Valve There is no tricuspid stenosis. There is a moderate amount of tricuspid regurgitation. There is mild pulmonary hypertension by echo. RVSP is 38 mm of Hg , with RA mean of 10. Pulmonic Valve There is no pulmonic valvular stenosis. There is a trace amount of pulmonic regurgitation. Great Vessels The aortic root is normal size. The inferior vena cava was not visualized. Effusions There is no pericardial effusion. : APRIL WILSON Lakshmi
[2019-01-31] MEDS: MIRTAZAPINE 15 MG TABLET PO SCH (21:44)
[2019-01-31] MEDS: COLCHICINE 0.6 MG TABLET PO SCH (21:44)
[2019-01-31] MEDS: ATORVASTATIN CALCIUM 40 MG TABLET PO SCH (21:45)
[2019-01-31] MEDS: AMLODIPINE BESYLATE 5 MG TABLET PO SCH (21:45)
[2019-02-01] MEDS: IPRATROPIUM/ALBUTEROL 0.5-2.5 MG/3 ML AMPUL NEB SCH ×4 (01:53→20:11)
[2019-02-01 05:08] LABS: ABSOLUTE BASOPHILS # (AUTO) 0.1 10^3/uL (0.0-0.2); ABSOLUTE LYMPHOCYTES (AUTO) 0.7 10^3/uL (0.5-4.7); ABSOLUTE MONOCYTES (AUTO) 0.9 10^3/uL (0.1-1.4); ABSOLUTE NEUT (AUTO) 6.8 10^3/uL (1.7-8.2); BASOPHILS % (AUTO) 0.7 % (0-2); EOSINOPHILS % (AUTO) 10.1 % (0-6); HEMATOCRIT 29.8 % (37.9-51.0); HEMOGLOBIN 9.7 g/dL (13.5-17.0); LYMPHOCYTES % (AUTO) 7.7 % (13-45); MEAN CORPUSCULAR HEMOGLOBIN 26.7 pg (27.0-33.4); MEAN CORPUSCULAR HGB CONC 32.5 g/dL (32.0-36.0); MEAN CORPUSCULAR VOLUME 82 fl (80-97); MONOCYTES % (AUTO) 9.4 % (3-13); PLATELET COUNT 248 10^3/uL (150-450); RED BLOOD COUNT 3.62 10^6/uL (4.35-5.55); RED CELL DISTRIBUTION WIDTH 17.7 % (11.5-14.0); SEGMENTED NEUTROPHILS % (AUTO) 72.1 % (42-78); TOTAL CELLS COUNTED % (AUTO) 100 %; WHITE BLOOD COUNT 9.5 10^3/uL (4.0-10.5)
[2019-02-01] MEDS: PIPERACILLIN SODIUM/TAZOBACTAM 3.375 GM in NORMAL SALINE 100 ML IV SCH ×3 (05:10→17:48)
[2019-02-01] MEDS: HEPARIN SOD (PORCINE) 5,000 UNIT/ML 1 ML VIAL SUBCUT SCH ×3 (05:10→22:27)
[2019-02-01 05:31] LABS: ALBUMIN 2.6 g/dL (3.5-5.0); ANION GAP 7 (5-19); BLOOD UREA NITROGEN 29 mg/dL (7-20); CALCIUM 8.4 mg/dL (8.4-10.2); CARBON DIOXIDE 25 mmol/L (22-30); CHLORIDE 110 mmol/L (98-107); GLUCOSE 112 mg/dL (75-110); PHOSPHORUS 4.2 mg/dL (2.5-4.5); POTASSIUM 3.6 mmol/L (3.6-5.0)
[2019-02-01] MEDS: COLCHICINE 0.6 MG TABLET PO SCH ×2 (10:21→22:26)
[2019-02-01] MEDS: ASPIRIN 81 MG TABLET, ENT COATED PO SCH (10:21)
[2019-02-01] MEDS: FAMOTIDINE 20 MG TABLET PO SCH ×2 (10:22→22:27)
[2019-02-01] MEDS: FERROUS SULFATE 325 MG TABLET PO SCH (10:22)
[2019-02-01] MEDS: ASCORBIC ACID 500 MG TABLET PO SCH (10:22)
[2019-02-01] MEDS: GUAIFENESIN 600 MG TABLET.SA PO SCH ×2 (10:22→22:27)
[2019-02-01] MEDS: MULTIVITAMIN TABLET PO SCH (10:22)
[2019-02-01] MEDS: TAMSULOSIN HCL 0.4 MG CAP.SR.24H PO SCH (10:22)
[2019-02-01] MEDS: CALCIUM CARBONATE 500 MG TABLET PO SCH ×2 (10:22→17:48)
[2019-02-01] MEDS: AMLODIPINE BESYLATE 5 MG TABLET PO SCH ×2 (10:22→22:26)
[2019-02-01] MEDS: LEVOFLOXACIN 750 MG/D5W RTU 750 MG/150 ML RTUPB IV SCH (10:23)
[2019-02-01] MEDS: LOSARTAN POTASSIUM 25 MG TABLET PO SCH (10:23)
[2019-02-01 12:43] LABS: TOTAL PROTEIN BODY FLUID 1.5 g/dL (.)
--- NOTE | 2019-02-01 13:12 | Progress Note Acknowledgement ---
Progress Note Acknowledgement Progess Note Acknowledgement: I, the undersigned member of the medical staff with appropriate privileges and with supervisory authority over [ PAC ], a dependent practice allied health professional, acknowledge that I have reviewed the progress notes entered on this patient, and in my professional judgment believe that the assessment made and/or any care evidenced was appropriate
--- NOTE | 2019-02-01 13:31 | PDOC PROGRESS REPORT ---
Subjective Progress Note for:: 02/01/19 Subjective:: 02/01/19 Patient was moved from ICU to the floor. Originally admitted for pneumonia on 01/27/2019. 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 Patient is being admitted for shortness of breath, pneumonia, CHF Patient is 50% better than on admission according to his assessment. Patient had a thoracentesis done on 01/30/2019 was feeling better following that procedure. Patient is currently on Zosyn vancomycin and Levaquin Reason For Visit: PNEUMONIA Physical Exam Vital Signs: Temp Pulse Resp BP Pulse Ox 97.5 F 97 18 150/92 H 92 02/01/19 07:27 02/01/19 08:35 02/01/19 08:35 02/01/19 07:27 02/01/19 08:35 Pulse Oximeter Continuous Start: 01/29/19 17:01 Freq: RTQ4 Status: Hold Protocol: Document 01/29/19 17:46 [facility] (Rec: 01/29/19 17:46 [facility] [id number]) Pulse Oximetry Assessment Oxygen Saturation (92-100) 90 Oxygen Flow Rate (L/min) 3 Oxygen Delivery Method Nasal Cannula Equipment Usage Initial Set Up Continuous Pulse Oximeter 24 Hour Charge Charge Now Continuous SpO2 Machine # N-11 Intake & Output 01/31/19 02/01/19 02/02/19 06:59 06:59 06:59 Intake Total 860 900 Output Total 2485 950 Balance -1625 -50 Weight 78.2 kg 78.1 kg General appearance: PRESENT: mild distress Respiratory exam: PRESENT: crackles - Chattered Cardiovascular exam: PRESENT: RRR. ABSENT: diastolic murmur, rubs, systolic murmur Neurological exam: PRESENT: alert, awake, oriented to person, oriented to place, oriented to time, oriented to situation, CN II-XII grossly intact, other - Patient is awake alert and oriented. ABSENT: motor sensory deficit Psychiatric exam: PRESENT: appropriate affect, normal mood. ABSENT: homicidal ideation, suicidal ideation Results Laboratory Results: 02/01/19 04:28 02/01/19 04:28 01/30/19 01/30/19 01/30/19 10:04 10:04 10:04 WBC RBC Hgb Hct MCV MCH MCHC RDW Plt Count Seg Neutrophils % Sodium Potassium Chloride Carbon Dioxide Anion Gap BUN Creatinine Est GFR ( Amer) Glucose Calcium Phosphorus Magnesium Albumin Fluid Glucose 109 Fluid Total Protein 1.5 Fluid LDH 90 Fluid Amylase 11 02/01/19 02/01/19 04:28 04:28 WBC 9.5 RBC 3.62 L Hgb 9.7 L Hct 29.8 L MCV 82 MCH 26.7 L MCHC 32.5 RDW 17.7 H Plt Count 248 Seg Neutrophils % 72.1 Sodium 142.4 Potassium 3.6 Chloride 110 H Carbon Dioxide 25 Anion Gap 7 BUN 29 H Creatinine 1.56 H Est GFR ( Amer) 52 L Glucose 112 H Calcium 8.4 Phosphorus 4.2 Magnesium 2.2 Albumin 2.6 L Fluid Glucose Fluid Total Protein Fluid LDH Fluid Amylase 01/27/19 12:20 Blood Blood Culture - Final NO GROWTH IN 5 DAYS 01/27/19 09:40 Blood Blood Culture - Final NO GROWTH IN 5 DAYS 01/29/19 10:52 Sputum Gram Stain - Final 01/29/19 10:52 Sputum Sputum Culture - Final C.albicans/C.dubliniensis Reduced Normal Ashly 01/27/19 09:40 Troponin I 0.030 NT-Pro-B Natriuret Pep [id number] H Impressions: Chest/Abdomen CTA 01/27/19 10:41 IMPRESSION: 1. Negative examination for pulmonary embolism. 2. There is extensive bilateral perihilar ground-glass opacity and consolidation, most consistent with infection. Asymmetric edema may have this appearance. 3. Moderate bilateral pleural effusions and associated atelectasis or consolidation. 4. Cardiomegaly. Thoracentesis Ultrasound 01/30/19 11:01 IMPRESSION: SUCCESSFUL THORACENTESIS USING ULTRASOUND GUIDANCE. Assessment and Plan - Diagnosis (1) Bacterial pneumonia Is this a current diagnosis for this admission?: Yes Plan: Noted on CTA chest. Patient is at risk for healthcare associated pneumonia given current placement at [facility] for short-term rehab. Repeat chest x-ray demonstrates extensive alveolar infiltrates with perihilar predominance and mixed interstitial and airspace disease. Blood cultures are negative at 72 hours. Sputum cultures show C albicans. Legionella pending Patient was upgraded to ICU yesterday evening due to worsening respiratory status. Following thoracentesis today, patient has demonstrated improved vital signs stability. Therefore he is downgraded to IMCU. Continue IV vancomycin, Zosyn, and Levaquin for HAP Supplemental oxygen to maintain saturations. Schedule and as needed nebulizer treatments. Mucinex twice daily, Robitussin as needed for cough. Incentive spirometer to bedside. Chest physiotherapy 01/31/2019-the patient did have a thoracentesis yesterday. We will continue the Zosyn, vancomycin and levofloxacin. Once final culture results are available we will likely be able to narrow the antibiotic spectrum. 02/01/2019 no complications following the right sided thoracentesis on 01/30/2019. 1 L was removed Gram stain is pending Legionella is pending. Admission CT scan of the chest showed extensive bilateral perihilar groundglass opacity and consolidation most consistent with infection as well as moderate bilateral pleural effusions Day 5 of vancomycin, day 6 of Zosyn, and has been on IV Levaquin for 3 days now and will be switched to p.o. Levaquin tomorrow per pharmacy (2) Bilateral pleural effusion Is this a current diagnosis for this admission?: Yes Plan: Moderate pleural effusions noted on CTA. Mild by CXR Thoracentesis with >1L removed; Appears exudative. Cultures pending. 01/31/2019-patient underwent right sided thoracentesis yesterday. 1060 mL removed. Appears to be transudate. Fluid chemistry still pending. Consider left thoracentesis if needed. 02/01/2019 as above, post procedure chest x-ray shows no pneumothorax. Patient states he is feeling better since thoracentesis (3) Chronic systolic CHF (congestive heart failure) Is this a current diagnosis for this admission?: Yes Plan: No echocardiogram on file, although he stress test from 2018 has an LVEF of 39%. Chest x-ray demonstrates pulmonary edema, although chest CT more indicative of pneumonia. proBNP elevated to 16,000; possibly related to acute respiratory failure with hypoxia secondary to pneumonia. Echocardiogram pending. Medications have been reconciled; he does not appear to be on antihypertensives. Due to frequent PVCs and a 17 beat run of V. tach, will start low-dose carvedilol. Continue ASA and statin therapy. Cardiac diet. Daily weights. 01/31/2019-the patient has had a negative fluid balance for the last 2 days. With his blood pressure being elevated today we will add antihypertensive medication. Heart failure could be contributing to the pleural effusions. Successful thoracentesis was performed yesterday. Consideration for thoracentesis on the opposite side will be based on the patient's condition. The fluid did appear to be a transudate but fluid chemistries are still pending. 02/01/2019 fluid chemistries are still pending today. Patient is on no diuretics though he is on Norvasc 5 mg every 12 hours Cozaar 25 mg daily. Blood pressures are running stable around 150/80 with heart rate in the upper 80s to low 90s - Time Time Spent with patient: 25-34 minutes
[2019-02-01] MEDS: VANCOMYCIN HCL 1,250 MG in DEXTROSE 5%-WATER 250 ML IV SCH (13:54)
--- NOTE | 2019-02-01 18:53 | Progress Note ---
Provider Note Provider Note: ID Telephone Consultation Note Asked to review patient's chart by Pharmacy. Pt not seen or examined. Mr. Fonseca is an 83 year old man admitted on 01/27/19 who was sent from a senior care for complaints of fever, productive cough, malaise, and hypoxia on room air. PMH/PSH includes CHF, AF, CKD, PVD s/p L AKA, vascular dementia and CAD. On arrival at [facility] he was afebrile but tachycardic with hypoxia on room air with rhonchi throughout. He was also appreciated as having R 1st toe redness. CXR showed extensive perihilar and bilateral alveolar and interstitial airspace disease read as most likely representing pulmonary edema, less likely infection. CT of the chest showed bilateral pleural effusions with associated atelectasis or consolidation and perihilar ground glass opacifications or consolidation bilaterally that was read by the radiologist as most consistent with infection, although asymmetric edema could also have this appearance. The patient was given IV vancomycin and Zosyn pending results of further studies. He was given colchicine for gout. Levaquin was added on 01/30. He also underwent thoracentesis on 01/30/19. Blood cultures are negative x 5 days. Sputum on 01/29 grew C albicans and reduced normal bella. UCx was negative. Legionella urine antigen is pending. Pleural fluid gram stain was negative and culture is without growth x 2 days. The pleural fluid LDH was 90 and total protein was 1.5. Serum total protein was 5.5. Serum LDH was 226. Most recently the patient has been improving - reports feeling better than on admission and better after the thoracentesis. Impression/Recommendations The patient has been treated for pneumonia with empiric vancomycin, Zosyn and Levaquin. He was able to provide a good sputum sample, which did not grow any MRSA or Pseudomonas. His blood cultures have also been negative. There is no longer a need to continue anti-MRSA or anti-Pseudomonal antibiotics. Recommend discontinuing IV vancomycin and IV Zosyn. Levofloxacin alone is sufficient for treatment of community acquired pneumonia in absence of more resistant isolates, which were not found. Carlos Edward MD [facility] Infectious Diseases pager [phone]
[2019-02-01] MEDS: ATORVASTATIN CALCIUM 40 MG TABLET PO SCH (22:26)
[2019-02-01] MEDS: MIRTAZAPINE 15 MG TABLET PO SCH (22:26)
[2019-02-02] MEDS: PIPERACILLIN SODIUM/TAZOBACTAM 3.375 GM in NORMAL SALINE 100 ML IV SCH ×2 (00:47→05:45)
[2019-02-02] MEDS: IPRATROPIUM/ALBUTEROL 0.5-2.5 MG/3 ML AMPUL NEB SCH ×5 (02:00→20:06)
[2019-02-02] MEDS: HEPARIN SOD (PORCINE) 5,000 UNIT/ML 1 ML VIAL SUBCUT SCH ×3 (05:45→21:29)
[2019-02-02] MEDS: LEVOFLOXACIN 750 MG TABLET PO SCH (08:35)
[2019-02-02] MEDS: LOSARTAN POTASSIUM 25 MG TABLET PO SCH (09:56)
[2019-02-02] MEDS: FAMOTIDINE 20 MG TABLET PO SCH (09:56)
[2019-02-02] MEDS: FERROUS SULFATE 325 MG TABLET PO SCH (09:56)
[2019-02-02] MEDS: COLCHICINE 0.6 MG TABLET PO SCH ×2 (09:56→21:30)
[2019-02-02] MEDS: GUAIFENESIN 600 MG TABLET.SA PO SCH ×2 (09:56→21:29)
[2019-02-02] MEDS: CALCIUM CARBONATE 500 MG TABLET PO SCH ×2 (09:56→18:52)
[2019-02-02] MEDS: MULTIVITAMIN TABLET PO SCH (09:56)
[2019-02-02] MEDS: ASPIRIN 81 MG TABLET, ENT COATED PO SCH (09:56)
[2019-02-02] MEDS: AMLODIPINE BESYLATE 5 MG TABLET PO SCH ×2 (09:56→21:29)
[2019-02-02] MEDS: TAMSULOSIN HCL 0.4 MG CAP.SR.24H PO SCH (09:56)
[2019-02-02] MEDS: ASCORBIC ACID 500 MG TABLET PO SCH (09:56)
--- NOTE | 2019-02-02 11:45 | PDOC PROGRESS REPORT ---
Subjective Progress Note for:: 02/02/19 Subjective:: Patient awake alert but confused, denies complaints tolerating p.o. Nurse reports constipation. No new issues overnight Reason For Visit: PNEUMONIA Physical Exam Vital Signs: Temp Pulse Resp BP Pulse Ox 98.3 F 100 20 126/78 H 94 02/02/19 07:35 02/02/19 07:48 02/02/19 07:48 02/02/19 07:35 02/02/19 07:48 Pulse Oximeter Continuous Start: 01/29/19 17:01 Freq: RTQ4 Status: Hold Protocol: Document 01/29/19 17:46 [facility] (Rec: 01/29/19 17:46 [facility] [id number]) Pulse Oximetry Assessment Oxygen Saturation (92-100) 90 Oxygen Flow Rate (L/min) 3 Oxygen Delivery Method Nasal Cannula Equipment Usage Initial Set Up Continuous Pulse Oximeter 24 Hour Charge Charge Now Continuous SpO2 Machine # [id number]-11 Intake & Output 01/31/19 02/01/19 02/02/19 11:59 11:59 11:59 Intake Total 810 950 550 Output Total 975 950 275 Balance -165 0 275 Weight 78.2 kg 78.1 kg 78.3 kg General appearance: PRESENT: no acute distress, cooperative, thin, other - Chronically ill-appearing, cachectic and global atrophy. ABSENT: mild distress Head exam: PRESENT: atraumatic, normocephalic, other - Cachexia with temporal wasting Eye exam: PRESENT: conjunctiva pink, EOMI, PERRLA. ABSENT: scleral icterus Ear exam: PRESENT: normal external ear exam Mouth exam: PRESENT: moist, tongue midline Neck exam: ABSENT: carotid bruit, JVD, lymphadenopathy, thyromegaly Respiratory exam: PRESENT: crackles, prolonged expiratory phas, rhonchi, other - Weak cough Cardiovascular exam: PRESENT: RRR. ABSENT: diastolic murmur, rubs, systolic murmur Pulses: PRESENT: normal dorsalis pedis pul Vascular exam: PRESENT: normal capillary refill GI/Abdominal exam: PRESENT: distended, hypoactive bowel sounds, normal bowel sounds, soft. ABSENT: guarding, mass, organolmegaly, rebound, tenderness Rectal exam: PRESENT: deferred Extremities exam: PRESENT: full ROM, +1 edema, other - Status post left AKA. ABSENT: calf tenderness, clubbing, pedal edema Neurological exam: PRESENT: alert, altered, awake, oriented to person, CN II-XII grossly intact Psychiatric exam: PRESENT: appropriate affect, normal mood. ABSENT: homicidal ideation, suicidal ideation Skin exam: PRESENT: dry, intact, warm. ABSENT: cyanosis, rash Results Laboratory Results: 02/01/19 04:28 02/01/19 04:28 01/30/19 01/30/19 01/30/19 10:04 10:04 10:04 Fluid Glucose 109 Fluid Total Protein 1.5 Fluid LDH 90 Fluid Amylase 11 01/30/19 04:30 [facility] Catheter Legionella Urinary Antigen - Final 01/27/19 12:20 Blood Blood Culture - Final NO GROWTH IN 5 DAYS 01/27/19 09:40 Blood Blood Culture - Final NO GROWTH IN 5 DAYS 01/27/19 09:40 Troponin I 0.030 NT-Pro-B Natriuret Pep [id number] H Impressions: Chest/Abdomen CTA 01/27/19 10:41 IMPRESSION: 1. Negative examination for pulmonary embolism. 2. There is extensive bilateral perihilar ground-glass opacity and consolidation, most consistent with infection. Asymmetric edema may have this appearance. 3. Moderate bilateral pleural effusions and associated atelectasis or consolidation. 4. Cardiomegaly. Thoracentesis Ultrasound 01/30/19 11:01 IMPRESSION: SUCCESSFUL THORACENTESIS USING ULTRASOUND GUIDANCE. Assessment and Plan - Diagnosis (1) Bacterial pneumonia Is this a current diagnosis for this admission?: Yes Plan: Complicated by vascular dementia and a week cough, poor pulmonary toilet, infectious disease consult greatly appreciated, antibiotic coverage narrowed to Levaquin. Follow-up CBC (2) Bilateral pleural effusion Is this a current diagnosis for this admission?: Yes Plan: Improved following thoracentesis. Encourage incentive spirometry (3) CKD (chronic kidney disease) Is this a current diagnosis for this admission?: Yes Plan: At baseline, avoid nephrotoxic meds and doses (4) Chronic systolic CHF (congestive heart failure) Is this a current diagnosis for this admission?: Yes Plan: Currently compensated continue current regiment (5) Decubitus ulcer of coccygeal region, stage 2 Is this a current diagnosis for this admission?: Yes Plan: stage II coccyx ulcer. Continue barrier cream and Allevyn foam dressing. Change daily. Reposition patient every 2 hours. - Time Time Spent with patient: 15-24 minutes - Inpatient Certification Medical Necessity: Need Close Monitoring Due to Risk of Patient Decompensation
[2019-02-02 12:13] LABS: IRON(TIBC) 22.1 ug/dL (49-181)
[2019-02-02 12:30] LABS: ABSOLUTE RETICS # 0.047 10^6/uL (0.028-0.122); RETICULOCYTE COUNT (AUTO) 1.31 % (0.66-2.85)
[2019-02-02] MEDS: LACTULOSE SYRUP 20 GM/30 ML UDCUP PO SCH (12:57)
[2019-02-02 13:32] LABS: FOLATE > 20.00 ng/mL (>2.76)
[2019-02-02] MEDS ORDERED: LEVOFLOXACIN 750 MG/D5W RTU 750 MG/150 ML RTUPB IV SCH (14:00)
[2019-02-02] MEDS: MIRTAZAPINE 15 MG TABLET PO SCH (21:29)
[2019-02-02] MEDS: ATORVASTATIN CALCIUM 40 MG TABLET PO SCH (21:30)
[2019-02-03] MEDS: IPRATROPIUM/ALBUTEROL 0.5-2.5 MG/3 ML AMPUL NEB SCH ×4 (02:36→20:48)
[2019-02-03] MEDS: HEPARIN SOD (PORCINE) 5,000 UNIT/ML 1 ML VIAL SUBCUT SCH ×3 (05:09→22:43)
[2019-02-03] MEDS ORDERED: IRON SUCROSE COMPLEX INJ/PF 100 MG/5 ML SDV IV ONE (09:00)
[2019-02-03] MEDS ORDERED: CYANOCOBALAMIN (VITAMIN B-12) INJ 1000 MCG/1 ML VIAL IM ONE (09:00)
[2019-02-03] MEDS: FERROUS SULFATE 325 MG TABLET PO SCH (09:07)
[2019-02-03] MEDS: ASCORBIC ACID 500 MG TABLET PO SCH (09:07)
[2019-02-03] MEDS: LEVOFLOXACIN 750 MG TABLET PO SCH (09:07)
[2019-02-03] MEDS: AMLODIPINE BESYLATE 5 MG TABLET PO SCH ×2 (09:07→22:43)
[2019-02-03] MEDS: GUAIFENESIN 600 MG TABLET.SA PO SCH ×2 (09:07→22:43)
[2019-02-03] MEDS: FAMOTIDINE 20 MG TABLET PO SCH (09:07)
[2019-02-03] MEDS: ASPIRIN 81 MG TABLET, ENT COATED PO SCH (09:07)
[2019-02-03] MEDS: CALCIUM CARBONATE 500 MG TABLET PO SCH ×2 (09:07→17:59)
[2019-02-03] MEDS: LOSARTAN POTASSIUM 25 MG TABLET PO SCH (09:07)
[2019-02-03] MEDS: TAMSULOSIN HCL 0.4 MG CAP.SR.24H PO SCH (09:07)
[2019-02-03] MEDS: COLCHICINE 0.6 MG TABLET PO SCH ×2 (09:07→22:43)
[2019-02-03] MEDS: MULTIVITAMIN TABLET PO SCH (09:08)
[2019-02-03] MEDS: LACTULOSE SYRUP 20 GM/30 ML UDCUP PO SCH (09:10)
--- NOTE | 2019-02-03 09:30 | PDOC PROGRESS REPORT ---
Subjective Progress Note for:: 02/03/19 Subjective:: Patient awake alert but confused, denies complaints tolerating p.o. patient minimally interactive, chronically ill and weak. Nurse reports resolution of constipation. No new issues overnight. Profound baseline debilitated state, anticipate decompensation within the next 6 months patient is a good candidate for hospice but still full code discussed with discharge planning for family meeting Wednesday, 04 February. For consideration of hospice. Reason For Visit: PNEUMONIA Physical Exam Vital Signs: Temp Pulse Resp BP Pulse Ox 98.2 F 89 20 126/70 H 96 02/03/19 08:15 02/03/19 08:15 02/03/19 08:15 02/03/19 08:15 02/03/19 08:15 Pulse Oximeter Continuous Start: 01/29/19 17:01 Freq: RTQ4 Status: Hold Protocol: Document 01/29/19 17:46 [facility] (Rec: 01/29/19 17:46 [facility] [id number]) Pulse Oximetry Assessment Oxygen Saturation (92-100) 90 Oxygen Flow Rate (L/min) 3 Oxygen Delivery Method Nasal Cannula Equipment Usage Initial Set Up Continuous Pulse Oximeter 24 Hour Charge Charge Now Continuous SpO2 Machine # [id number] Intake & Output 02/01/19 02/02/19 02/03/19 11:59 11:59 11:59 Intake Total 950 550 360 Output Total 950 275 825 Balance 0 275 -465 Weight 78.1 kg 78.3 kg 78.2 kg General appearance: PRESENT: no acute distress, cooperative, well-developed, well-nourished, other - Pale, chronically ill-appearing, temporal wasting and global atrophy Head exam: PRESENT: atraumatic, normocephalic Eye exam: PRESENT: conjunctiva pink, EOMI, PERRLA. ABSENT: scleral icterus Ear exam: PRESENT: normal external ear exam Mouth exam: PRESENT: dry mucosa, tongue midline Neck exam: ABSENT: carotid bruit, JVD, lymphadenopathy, thyromegaly Respiratory exam: PRESENT: crackles, decreased breath sounds, prolonged expiratory phas, rales, symmetrical. ABSENT: rhonchi, wheezes Cardiovascular exam: PRESENT: RRR. ABSENT: diastolic murmur, rubs, systolic murmur Pulses: PRESENT: normal dorsalis pedis pul Vascular exam: PRESENT: normal capillary refill GI/Abdominal exam: PRESENT: normal bowel sounds, soft. ABSENT: distended, guarding, mass, organolmegaly, rebound, tenderness Rectal exam: PRESENT: deferred Extremities exam: PRESENT: full ROM, other - Stage II heel ulcer. ABSENT: calf tenderness, clubbing, pedal edema Neurological exam: PRESENT: alert, awake, oriented to person, oriented to place, oriented to time, oriented to situation, CN II-XII grossly intact. ABSENT: motor sensory deficit Psychiatric exam: PRESENT: appropriate affect, normal mood. ABSENT: homicidal ideation, suicidal ideation Skin exam: PRESENT: dry, intact, warm. ABSENT: cyanosis, rash Results Laboratory Results: 02/01/19 04:28 02/01/19 04:28 02/01/19 02/01/19 04:28 04:28 Retic Count (auto) 1.31 Iron 22.1 L TIBC 164 L % Saturation 13 Ferritin 367.00 Vitamin B12 265.0 Folate > 20.00 01/30/19 04:30 [facility]atheter Legionella Urinary Antigen - Final 01/27/19 09:40 Troponin I 0.030 NT-Pro-B Natriuret Pep [id number] H Impressions: Chest/Abdomen CTA 01/27/19 10:41 IMPRESSION: 1. Negative examination for pulmonary embolism. 2. There is extensive bilateral perihilar ground-glass opacity and consolidation, most consistent with infection. Asymmetric edema may have this appearance. 3. Moderate bilateral pleural effusions and associated atelectasis or consolidation. 4. Cardiomegaly. Thoracentesis Ultrasound 01/30/19 11:01 IMPRESSION: SUCCESSFUL THORACENTESIS USING ULTRASOUND GUIDANCE. Assessment and Plan - Diagnosis (1) Bacterial pneumonia Is this a current diagnosis for this admission?: Yes Plan: Complicated by vascular dementia and a week cough, poor pulmonary toilet, infectious disease consult greatly appreciated, antibiotic coverage narrowed to Levaquin. Follow-up CBC, blood culture. Given patient's persistent debilitated state unable to participate and pulmonary rehab anticipate significant decline over the next 6 months as such patient is a good candidate for hospice. Family meeting planned for Wednesday, February 04. (2) Bilateral pleural effusion Is this a current diagnosis for this admission?: Yes Plan: Improved following thoracentesis. Encouraged incentive spirometry however patient too debilitated to participate in significant pulmonary toilet (3) CKD (chronic kidney disease) Is this a current diagnosis for this admission?: Yes Plan: At baseline, avoid nephrotoxic meds and doses follow-up chemistry PRN (4) Chronic systolic CHF (congestive heart failure) Is this a current diagnosis for this admission?: Yes Plan: Currently compensated continue current regiment (5) Decubitus ulcer of coccygeal region, stage 2 Is this a current diagnosis for this admission?: Yes Plan: stage II coccyx ulcer. Continue barrier cream and Allevyn foam dressing. Change daily. Reposition patient every 2 hours. (6) Anemia Qualifiers: Anemia type: unspecified type Qualified Code(s): D64.9 - Anemia, unspecified Is this a current diagnosis for this admission?: Yes Plan: Multifactorial anemia B12 and iron deficiency demonstrated by labs. IV vitamin B12 and iron ordered. - Time Time Spent with patient: 25-34 minutes - Inpatient Certification Medical Necessity: Need Close Monitoring Due to Risk of Patient Decompensation
[2019-02-03] MEDS: ATORVASTATIN CALCIUM 40 MG TABLET PO SCH (22:44)
[2019-02-03] MEDS: MIRTAZAPINE 15 MG TABLET PO SCH (22:45)
[2019-02-04] MEDS: IPRATROPIUM/ALBUTEROL 0.5-2.5 MG/3 ML AMPUL NEB SCH ×4 (02:12→21:00)
[2019-02-04] MEDS: ACETAMINOPHEN 325 MG TABLET PO PRN (03:30)
[2019-02-04] MEDS: HEPARIN SOD (PORCINE) 5,000 UNIT/ML 1 ML VIAL SUBCUT SCH ×3 (06:20→21:51)
[2019-02-04] MEDS: GUAIFENESIN 600 MG TABLET.SA PO SCH ×2 (09:30→21:50)
[2019-02-04] MEDS: FAMOTIDINE 20 MG TABLET PO SCH (09:30)
[2019-02-04] MEDS: TAMSULOSIN HCL 0.4 MG CAP.SR.24H PO SCH (09:30)
[2019-02-04] MEDS: AMLODIPINE BESYLATE 5 MG TABLET PO SCH ×2 (09:30→21:50)
[2019-02-04] MEDS: MULTIVITAMIN TABLET PO SCH (09:30)
[2019-02-04] MEDS: FERROUS SULFATE 325 MG TABLET PO SCH (09:30)
[2019-02-04] MEDS: CALCIUM CARBONATE 500 MG TABLET PO SCH ×2 (09:30→17:12)
[2019-02-04] MEDS: ASPIRIN 81 MG TABLET, ENT COATED PO SCH (09:30)
[2019-02-04] MEDS: ASCORBIC ACID 500 MG TABLET PO SCH (09:30)
[2019-02-04] MEDS: LOSARTAN POTASSIUM 25 MG TABLET PO SCH (09:30)
[2019-02-04] MEDS: COLCHICINE 0.6 MG TABLET PO SCH ×2 (09:36→21:49)
[2019-02-04] MEDS: LEVOFLOXACIN 750 MG TABLET PO SCH (09:36)
--- NOTE | 2019-02-04 11:55 | PDOC PROGRESS REPORT ---
Subjective Progress Note for:: 02/04/19 Subjective:: 02/01/19 Patient was moved from ICU to the floor. Originally admitted for pneumonia on 01/27/2019. Was a short-term resident at [facility] for rehab following a left AKA 2 months ago. Patient is being admitted for shortness of breath, pneumonia, CHF Patient is 50% better than on admission according to his assessment. Patient had a thoracentesis done on 01/30/2019 was feeling better following that procedure. Patient is currently on Zosyn vancomycin and Levaquin 02/04/2019 now she is currently on Levaquin and culture results and disease consult. Patient has made a decision to become a DNR, patient appears much weaker today than just several days ago Reason For Visit: PNA Physical Exam Vital Signs: Temp Pulse Resp BP Pulse Ox 97.3 F 86 18 120/47 L 95 02/04/19 07:45 02/04/19 08:05 02/04/19 08:05 02/04/19 07:45 02/04/19 08:05 Pulse Oximeter Continuous Start: 01/29/19 17:01 Freq: RTQ4 Status: Hold Protocol: Document 01/29/19 17:46 [facility] (Rec: 01/29/19 17:46 [facility] [email or web address]) Pulse Oximetry Assessment Oxygen Saturation (92-100) 90 Oxygen Flow Rate (L/min) 3 Oxygen Delivery Method Nasal Cannula Equipment Usage Initial Set Up Continuous Pulse Oximeter 24 Hour Charge Charge Now Continuous SpO2 Machine # [id number] Intake & Output 02/03/19 02/04/19 02/05/19 06:59 06:59 06:59 Intake Total 360 450 Output Total 825 520 Balance -465 -70 Weight 78.2 kg 79 kg General appearance: PRESENT: mild distress, other - Patient gets short of breath just talking. Patient appears to be so weak he has difficulty moving around in bed Respiratory exam: PRESENT: decreased breath sounds, rales Cardiovascular exam: PRESENT: RRR, systolic murmur. ABSENT: rubs Neurological exam: PRESENT: alert, awake, oriented to person, oriented to place, oriented to time, oriented to situation, CN II-XII grossly intact. ABSENT: motor sensory deficit Psychiatric exam: PRESENT: appropriate affect, flat affect, normal mood. ABSENT: homicidal ideation, suicidal ideation Results Laboratory Results: 02/01/19 04:28 02/01/19 04:28 01/30/19 10:04 Pleural Fluid - Right Pleural Effusion Gram Stain - Final 01/30/19 10:04 Pleural Fluid - Right Pleural Effusion Body Fluid Culture - Final NO AEROBIC OR ANAEROBIC ORGANISMS RECOVERED 01/27/19 09:40 Troponin I 0.030 NT-Pro-B Natriuret Pep [id number] H Impressions: Chest/Abdomen CTA 01/27/19 10:41 IMPRESSION: 1. Negative examination for pulmonary embolism. 2. There is extensive bilateral perihilar ground-glass opacity and consolidati on, most consistent with infection. Asymmetric edema may have this appearance. 3. Moderate bilateral pleural effusions and associated atelectasis or consolidation. 4. Cardiomegaly. Thoracentesis Ultrasound 01/30/19 11:01 IMPRESSION: SUCCESSFUL THORACENTESIS USING ULTRASOUND GUIDANCE. Assessment and Plan - Diagnosis (1) Bacterial pneumonia Is this a current diagnosis for this admission?: Yes Plan: Complicated by vascular dementia and a week cough, poor pulmonary toilet, infectious disease consult greatly appreciated, antibiotic coverage narrowed to Levaquin. Follow-up CBC, blood culture. Given patient's persistent debilitated state unable to participate and pulmonary rehab anticipate significant decline over the next 6 months as such patient is a good candidate for hospice. Family meeting planned for February 04.. 02/04/2019 as above patient now just on p.o. vancomycin, patient remains afebrile 97 3, blood pressure 120/47, O2 sat 97% on 2 L nasal cannula. We will recheck labs today (2) Bilateral pleural effusion Is this a current diagnosis for this admission?: Yes Plan: Improved following thoracentesis. Encouraged incentive spirometry however patient too debilitated to participate in significant pulmonary toilet. 02/04/2019 patient is a poor candidate for any further thoracentesis due to his debilitated state and weakness (3) Chronic systolic CHF (congestive heart failure) Is this a current diagnosis for this admission?: Yes Plan: Currently compensated continue current regiment 02/04/2019 patient has no evidence of peripheral edema. Will repeat single view chest x-ray tomorrow morning. Patient on no diuretics - Time Time Spent with patient: 25-34 minutes - Discussed DNR status and long-term goals with patient and his
[2019-02-04 12:23] LABS: ABSOLUTE BASOPHILS # (AUTO) 0.1 10^3/uL (0.0-0.2); ABSOLUTE EOSINOPHILS # (AUTO) 0.6 10^3/uL (0.0-0.6); ABSOLUTE LYMPHOCYTES (AUTO) 0.6 10^3/uL (0.5-4.7); ABSOLUTE MONOCYTES (AUTO) 0.7 10^3/uL (0.1-1.4); ABSOLUTE NEUT (AUTO) 7.4 10^3/uL (1.7-8.2); BASOPHILS % (AUTO) 0.7 % (0-2); EOSINOPHILS % (AUTO) 6.8 % (0-6); HEMATOCRIT 31.9 % (37.9-51.0); HEMOGLOBIN 10.3 g/dL (13.5-17.0); LYMPHOCYTES % (AUTO) 6.3 % (13-45); MEAN CORPUSCULAR HEMOGLOBIN 26.3 pg (27.0-33.4); MEAN CORPUSCULAR HGB CONC 32.2 g/dL (32.0-36.0); MEAN CORPUSCULAR VOLUME 82 fl (80-97); MONOCYTES % (AUTO) 7.7 % (3-13); PLATELET COUNT 240 10^3/uL (150-450); RED CELL DISTRIBUTION WIDTH 18.6 % (11.5-14.0); SEGMENTED NEUTROPHILS % (AUTO) 78.5 % (42-78); TOTAL CELLS COUNTED % (AUTO) 100 %; WHITE BLOOD COUNT 9.4 10^3/uL (4.0-10.5)
[2019-02-04 12:42] LABS: ANION GAP 8 (5-19); BLOOD UREA NITROGEN 26 mg/dL (7-20); CALCIUM 8.6 mg/dL (8.4-10.2); CARBON DIOXIDE 23 mmol/L (22-30); CHLORIDE 109 mmol/L (98-107); GLUCOSE 106 mg/dL (75-110); POTASSIUM 3.6 mmol/L (3.6-5.0)
[2019-02-04] MEDS: MIRTAZAPINE 15 MG TABLET PO SCH (21:49)
[2019-02-04] MEDS: ATORVASTATIN CALCIUM 40 MG TABLET PO SCH (21:51)
[2019-02-05] MEDS: IPRATROPIUM/ALBUTEROL 0.5-2.5 MG/3 ML AMPUL NEB SCH ×4 (01:59→19:52)
[2019-02-05] MEDS: HEPARIN SOD (PORCINE) 5,000 UNIT/ML 1 ML VIAL SUBCUT SCH ×3 (06:37→21:13)
[2019-02-05] MEDS: AMLODIPINE BESYLATE 5 MG TABLET PO SCH ×2 (09:43→21:14)
--- NOTE | 2019-02-05 09:43 | RADIOLOGY REPORT (SQ) ---
EXAM DESCRIPTION: CHEST SINGLE VIEW COMPLETED DATE/TIME: 02/05/2019 9:30 am REASON FOR STUDY: CHF/ NURSE HAIDER SPOKE WITH DR WILKS IS FINE COMPARISON: 01/30/2019 NUMBER OF VIEWS: One view. TECHNIQUE: Single frontal radiographic image of the chest acquired. LIMITATIONS: None. FINDINGS: LUNGS AND PLEURA: Perihilar airspace disease and small pleural effusions consistent with c ongestive heart failure. No obvious superimposed pneumonia. MEDIASTINUM AND HEART: Stable heart size and mediastinal structures. BONY STRUCTURES: No acute findings. HARDWARE: None. OTHER: No other significant finding. IMPRESSION: Congestive heart failure. TECHNICAL DOCUMENTATION: JOB ID: [id number] Reading location - IP/workstation name: [email or web address]
[2019-02-05] MEDS: FAMOTIDINE 20 MG TABLET PO SCH (09:44)
[2019-02-05] MEDS: ASPIRIN 81 MG TABLET, ENT COATED PO SCH (09:44)
[2019-02-05] MEDS: FERROUS SULFATE 325 MG TABLET PO SCH (09:44)
[2019-02-05] MEDS: COLCHICINE 0.6 MG TABLET PO SCH ×2 (09:44→21:13)
[2019-02-05] MEDS: LEVOFLOXACIN 750 MG TABLET PO SCH (09:44)
[2019-02-05] MEDS: TAMSULOSIN HCL 0.4 MG CAP.SR.24H PO SCH (09:44)
[2019-02-05] MEDS: CALCIUM CARBONATE 500 MG TABLET PO SCH ×2 (09:44→18:43)
[2019-02-05] MEDS: LOSARTAN POTASSIUM 25 MG TABLET PO SCH (09:44)
[2019-02-05] MEDS: MULTIVITAMIN TABLET PO SCH (09:44)
[2019-02-05] MEDS: GUAIFENESIN 600 MG TABLET.SA PO SCH ×2 (09:44→21:14)
[2019-02-05] MEDS: ASCORBIC ACID 500 MG TABLET PO SCH (09:44)
--- NOTE | 2019-02-05 12:32 | PDOC PROGRESS REPORT ---
Subjective Progress Note for:: 02/05/19 Subjective:: 02/01/19 Patient was moved from ICU to the floor. Originally admitted for pneumonia on 01/27/2019. 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 Patient is being admitted for shortness of breath, pneumonia, CHF Patient is 50% better than on admission according to his assessment. Patient had a thoracentesis done on 01/30/2019 was feeling better following that procedure. Patient is currently on Zosyn vancomycin and Levaquin 02/04/2019 now he is currently on Levaquin and culture results and disease consult. Patient has made a decision to become a DNR, patient appears much weaker today than just several days ago 02/05/2019 chest x-ray this morning shows no sign of pneumonia however does show pulmonary edema. This would go along with his elevated BNP as well as increased shortness of breath. Reason For Visit: PNA Physical Exam Vital Signs: Temp Pulse Resp BP Pulse Ox 97.4 F 80 20 120/67 96 02/05/19 11:26 02/05/19 11:26 02/05/19 11:26 02/05/19 11:26 02/05/19 11:26 Pulse Oximeter Continuous Start: 01/29/19 17:01 Freq: RTQ4 Status: Hold Protocol: Document 01/29/19 17:46 [facility] (Rec: 01/29/19 17:46 [facility] [id number]) Pulse Oximetry Assessment Oxygen Saturation (92-100) 90 Oxygen Flow Rate (L/min) 3 Oxygen Delivery Method Nasal Cannula Equipment Usage Initial Set Up Continuous Pulse Oximeter 24 Hour Charge Charge Now Continuous SpO2 Machine # N-11 Intake & Output 02/04/19 02/05/19 02/06/19 06:59 06:59 06:59 Intake Total 450 150 Output Total 520 750 Balance -70 -600 Weight 79 kg 77.4 kg General appearance: PRESENT: mild distress Respiratory exam: PRESENT: crackles Cardiovascular exam: PRESENT: RRR. ABSENT: diastolic murmur, rubs, systolic murmur Neurological exam: PRESENT: alert, awake, oriented to person, oriented to place, oriented to time, oriented to situation, CN II-XII grossly intact. ABSENT: motor sensory deficit Psychiatric exam: PRESENT: appropriate affect, flat affect, normal mood. ABSENT: homicidal ideation, suicidal ideation Results Laboratory Results: 02/04/19 12:11 02/04/19 12:11 02/04/19 02/04/19 12:11 12:11 WBC 9.4 RBC 3.90 L Hgb 10.3 L Hct 31.9 L MCV 82 MCH 26.3 L MCHC 32.2 RDW 18.6 H Plt Count 240 Seg Neutrophils % 78.5 H Sodium 139.9 Potassium 3.6 Chloride 109 H Carbon Dioxide 23 Anion Gap 8 BUN 26 H Creatinine 1.27 H Est GFR ( Amer) > 60 Glucose 106 Calcium 8.6 01/27/19 02/04/19 09:40 12:11 Troponin I 0.030 NT-Pro-B Natriuret Pep 81952 H 45128 H Impressions: Chest/Abdomen CTA 01/27/19 10:41 IMPRESSION: 1. Negative examination for pulmonary embolism. 2. There is extensive bilateral perihilar ground-glass opacity and consolidation, most consistent with infection. Asymmetric edema may have this appearance. 3. Moderate bilateral pleural effusions and associated atelectasis or consolidation. 4. Cardiomegaly. Thoracentesis Ultrasound 01/30/19 11:01 IMPRESSION: SUCCESSFUL THORACENTESIS USING ULTRASOUND GUIDANCE. Chest X-Ray 02/05/19 10:00 IMPRESSION: Congestive heart failure. Assessment and Plan - Diagnosis (1) Bacterial pneumonia Is this a current diagnosis for this admission?: Yes Plan: Complicated by vascular dementia and a week cough, poor pulmonary toilet, infectious disease consult greatly appreciated, antibiotic coverage narrowed to Levaquin. Follow-up CBC, blood culture. Given patient's persistent debilitated state unable to participate and pulmonary rehab anticipate significant decline over the next 6 months as such patient is a good candidate for hospice. Family meeting planned for February 04.. 02/04/2019 as above patient now just on p.o. vancomycin, patient remains afebrile 97 3, blood pressure 120/47, O2 sat 97% on 2 L nasal cannula. We will recheck labs today 02/05/2019 chest x-ray this morning shows no sign of pneumonia but it does show pulmonary edema. Count remains stable at 9.4, patient is afebrile. Patient has 1 more day of p.o. vancomycin (2) Bilateral pleural effusion Is this a current diagnosis for this admission?: Yes Plan: Improved following thoracentesis. Encouraged incentive spirometry however patient too debilitated to participate in significant pulmonary toilet. 02/04/2019 patient is a poor candidate for any further thoracentesis due to his debilitated state and weakness 02/05/2019 chest x-ray today shows pulmonary edema, no pneumonia. (3) Chronic systolic CHF (congestive heart failure) Is this a current diagnosis for this admission?: Yes Plan: Currently compensated continue current regiment 02/04/2019 patient has no evidence of peripheral edema. Will repeat single view chest x-ray tomorrow morning. Patient on no diuretics 02/05/2019 patient states to his knowledge he is never had congestive heart failure. Patient's BNP is elevated rest x-ray today shows evidence of pulmonary edema, as well as crackles we will treat with IV Lasix 40 mg every 8 hours. I explained this to the patient and his - Time Time Spent with patient: 25-34 minutes
[2019-02-05] MEDS ORDERED: FUROSEMIDE INJ/PF 40 MG/4 ML SDV IV ONE (13:00)
[2019-02-05] MEDS: ATORVASTATIN CALCIUM 40 MG TABLET PO SCH (21:14)
[2019-02-05] MEDS: FUROSEMIDE INJ/PF 40 MG/4 ML SDV IV SCH (21:14)
[2019-02-05] MEDS: MIRTAZAPINE 15 MG TABLET PO SCH (21:14)
[2019-02-05] MEDS: ACETAMINOPHEN 325 MG TABLET PO PRN (21:24)
[2019-02-06] MEDS: IPRATROPIUM/ALBUTEROL 0.5-2.5 MG/3 ML AMPUL NEB SCH ×4 (01:53→19:48)
[2019-02-06] MEDS: HEPARIN SOD (PORCINE) 5,000 UNIT/ML 1 ML VIAL SUBCUT SCH ×3 (05:49→21:54)
[2019-02-06] MEDS: FUROSEMIDE INJ/PF 40 MG/4 ML SDV IV SCH (05:51)
[2019-02-06 06:52] LABS: ABSOLUTE BASOPHILS # (AUTO) 0.1 10^3/uL (0.0-0.2); ABSOLUTE EOSINOPHILS # (AUTO) 0.9 10^3/uL (0.0-0.6); ABSOLUTE LYMPHOCYTES (AUTO) 0.8 10^3/uL (0.5-4.7); ABSOLUTE MONOCYTES (AUTO) 0.7 10^3/uL (0.1-1.4); ABSOLUTE NEUT (AUTO) 6.1 10^3/uL (1.7-8.2); BASOPHILS % (AUTO) 0.9 % (0-2); EOSINOPHILS % (AUTO) 10.3 % (0-6); LYMPHOCYTES % (AUTO) 9.5 % (13-45); MEAN CORPUSCULAR HEMOGLOBIN 26.1 pg (27.0-33.4); MEAN CORPUSCULAR HGB CONC 32.2 g/dL (32.0-36.0); MEAN CORPUSCULAR VOLUME 81 fl (80-97); MONOCYTES % (AUTO) 8.3 % (3-13); PLATELET COUNT 251 10^3/uL (150-450); RED BLOOD COUNT 3.83 10^6/uL (4.35-5.55); RED CELL DISTRIBUTION WIDTH 17.9 % (11.5-14.0); TOTAL CELLS COUNTED % (AUTO) 100 %; WHITE BLOOD COUNT 8.7 10^3/uL (4.0-10.5)
[2019-02-06 07:23] LABS: ANION GAP 8 (5-19); BLOOD UREA NITROGEN 22 mg/dL (7-20); CALCIUM 8.4 mg/dL (8.4-10.2); CARBON DIOXIDE 27 mmol/L (22-30); CHLORIDE 106 mmol/L (98-107); GLUCOSE 86 mg/dL (75-110); POTASSIUM 3.2 mmol/L (3.6-5.0)
[2019-02-06] MEDS: FERROUS SULFATE 325 MG TABLET PO SCH (09:19)
[2019-02-06] MEDS: FAMOTIDINE 20 MG TABLET PO SCH (09:19)
[2019-02-06] MEDS: ASPIRIN 81 MG TABLET, ENT COATED PO SCH (09:19)
[2019-02-06] MEDS: ASCORBIC ACID 500 MG TABLET PO SCH (09:19)
[2019-02-06] MEDS: COLCHICINE 0.6 MG TABLET PO SCH ×2 (09:19→21:54)
[2019-02-06] MEDS: MULTIVITAMIN TABLET PO SCH (09:19)
[2019-02-06] MEDS: GUAIFENESIN 600 MG TABLET.SA PO SCH ×2 (09:19→21:54)
[2019-02-06] MEDS: LOSARTAN POTASSIUM 25 MG TABLET PO SCH (09:19)
[2019-02-06] MEDS: AMLODIPINE BESYLATE 5 MG TABLET PO SCH ×2 (09:20→21:53)
[2019-02-06] MEDS: TAMSULOSIN HCL 0.4 MG CAP.SR.24H PO SCH (09:20)
[2019-02-06] MEDS: CALCIUM CARBONATE 500 MG TABLET PO SCH ×2 (09:20→17:25)
[2019-02-06] MEDS: FUROSEMIDE 40 MG TABLET PO SCH ×2 (11:38→21:53)
--- NOTE | 2019-02-06 14:54 | PDOC PROGRESS REPORT ---
Subjective Progress Note for:: 02/06/19 Subjective:: 02/01/19 Patient was moved from ICU to the floor. Originally admitted for pneumonia on 01/27/2019. 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 Patient is being admitted for shortness of breath, pneumonia, CHF Patient is 50% better than on admission according to his assessment. Patient had a thoracentesis done on 01/30/2019 was feeling better following that procedure. Patient is currently on Zosyn vancomycin and Levaquin 02/04/2019 now he is currently on Levaquin and culture results and disease consult. Patient has made a decision to become a DNR, patient appears much weaker today than just several days ago 02/05/2019 chest x-ray this morning shows no sign of pneumonia however does show pulmonary edema. This would go along with his elevated BNP as well as increased shortness of breath. 02/06/2019 it looks much better this morning states he feels better too Reason For Visit: PNA Physical Exam Vital Signs: Temp Pulse Resp BP Pulse Ox 97.3 F 76 16 113/58 L 95 02/06/19 11:43 02/06/19 14:14 02/06/19 14:14 02/06/19 11:43 02/06/19 14:14 Pulse Oximeter Continuous Start: 01/29/19 17:01 Freq: RTQ4 Status: Hold Protocol: Document 01/29/19 17:46 [facility] (Rec: 01/29/19 17:46 [facility] [id number]) Pulse Oximetry Assessment Oxygen Saturation (92-100) 90 Oxygen Flow Rate (L/min) 3 Oxygen Delivery Method Nasal Cannula Equipment Usage Initial Set Up Continuous Pulse Oximeter 24 Hour Charge Charge Now Continuous SpO2 Machine # N-11 Intake & Output 02/05/19 02/06/19 02/07/19 06:59 06:59 06:59 Intake Total 150 360 641 Output Total 193 6968 0520 Balance -916 -0618 -232 Weight 77.4 kg 68.4 kg General appearance: PRESENT: no acute distress Respiratory exam: PRESENT: clear to auscultation patience, crackles, other - Crackles in right lung base. ABSENT: rales, rhonchi, wheezes Cardiovascular exam: PRESENT: RRR. ABSENT: diastolic murmur, rubs, systolic murmur Neurological exam: PRESENT: alert, awake, oriented to person, oriented to place, oriented to time, oriented to situation, CN II-XII grossly intact. ABSENT: motor sensory deficit Psychiatric exam: PRESENT: appropriate affect, normal mood, other - Patient seems to be better spirits. ABSENT: homicidal ideation, suicidal ideation Results Laboratory Results: 02/06/19 06:26 02/06/19 06:26 02/06/19 02/06/19 06:26 06:26 WBC 8.7 RBC 3.83 L Hgb 10.0 L Hct 31.0 L MCV 81 MCH 26.1 L MCHC 32.2 RDW 17.9 H Plt Count 251 Seg Neutrophils % 71.0 Sodium 140.5 Potassium 3.2 L Chloride 106 Carbon Dioxide 27 Anion Gap 8 BUN 22 H Creatinine 1.34 H Est GFR ( Amer) > 60 Glucose 86 Calcium 8.4 01/27/19 02/04/19 02/06/19 09:40 12:11 06:26 Troponin I 0.030 NT-Pro-B Natriuret Pep 59170 H 42875 H 93411 H Impressions: Chest/Abdomen CTA 01/27/19 10:41 IMPRESSION: 1. Negative examination for pulmonary embolism. 2. There is extensive bilateral perihilar ground-glass opacity and consolid ation, most consistent with infection. Asymmetric edema may have this appearance. 3. Moderate bilateral pleural effusions and associated atelectasis or consolidation. 4. Cardiomegaly. Thoracentesis Ultrasound 01/30/19 11:01 IMPRESSION: SUCCESSFUL THORACENTESIS USING ULTRASOUND GUIDANCE. Chest X-Ray 02/05/19 10:00 IMPRESSION: Congestive heart failure. Assessment and Plan - Diagnosis (1) Bacterial pneumonia Is this a current diagnosis for this admission?: Yes Plan: Complicated by vascular dementia and a week cough, poor pulmonary toilet, infectious disease consult greatly appreciated, antibiotic coverage narrowed to Levaquin. Follow-up CBC, blood culture. Given patient's persistent debilitated state unable to participate and pulmonary rehab anticipate significant decline over the next 6 months as such patient is a good candidate for hospice. Family meeting planned for February 04.. 02/04/2019 as above patient now just on p.o. vancomycin, patient remains afebrile 97 3, blood pressure 120/47, O2 sat 97% on 2 L nasal cannula. We will recheck labs today 02/05/2019 chest x-ray this morning shows no sign of pneumonia but it does show pulmonary edema. Count remains stable at 9.4, patient is afebrile. Patient has 1 more day of p.o. vancomycin. 02/06/2019 vancomycin is completed today chest x-ray shows no pneumonia, currently treating primarily CHF and generalized debilitation (2) Bilateral pleural effusion Is this a current diagnosis for this admission?: Yes Plan: Improved following thoracentesis. Encouraged incentive spirometry however patient too debilitated to participate in significant pulmonary toilet. 02/04/2019 patient is a poor candidate for any further thoracentesis due to his debilitated state and weakness 02/05/2019 chest x-ray today shows pulmonary edema, no pneumonia. 02/06/2019 patient is currently taking Lasix 40 mg IV at hours this will be decreased to every 12 hours (3) Chronic systolic CHF (congestive heart failure) Is this a current diagnosis for this admission?: Yes Plan: Currently compensated continue current regiment 02/04/2019 patient has no evidence of peripheral edema. Will repeat single view chest x-ray tomorrow morning. Patient on no diuretics 02/05/2019 patient states to his knowledge he is never had congestive heart failure. Patient's BNP is elevated chest x-ray today shows evidence of pulmonary edema, as well as crackles we will treat with IV Lasix 40 mg every 8 hours. I explained this to the patient and his 02/06/2019 patient's Lasix will be decreased to every 12 hours. O2 sats are being maintained by nasal cannula BNP is down to 16,900 - Time Time Spent with patient: 25-34 minutes
[2019-02-06] MEDS: ATORVASTATIN CALCIUM 40 MG TABLET PO SCH (21:53)
[2019-02-06] MEDS: MIRTAZAPINE 15 MG TABLET PO SCH (21:53)
[2019-02-07] MEDS: IPRATROPIUM/ALBUTEROL 0.5-2.5 MG/3 ML AMPUL NEB SCH ×4 (02:00→20:21)
[2019-02-07] MEDS: HEPARIN SOD (PORCINE) 5,000 UNIT/ML 1 ML VIAL SUBCUT SCH ×3 (05:24→22:03)
[2019-02-07] MEDS: MULTIVITAMIN TABLET PO SCH (09:24)
[2019-02-07] MEDS: FUROSEMIDE 40 MG TABLET PO SCH ×2 (09:24→22:04)
[2019-02-07] MEDS: ASPIRIN 81 MG TABLET, ENT COATED PO SCH (09:24)
[2019-02-07] MEDS: COLCHICINE 0.6 MG TABLET PO SCH ×2 (09:24→22:04)
[2019-02-07] MEDS: FERROUS SULFATE 325 MG TABLET PO SCH (09:24)
[2019-02-07] MEDS: GUAIFENESIN 600 MG TABLET.SA PO SCH ×2 (09:24→22:04)
[2019-02-07] MEDS: CALCIUM CARBONATE 500 MG TABLET PO SCH ×2 (09:24→17:12)
[2019-02-07] MEDS: LOSARTAN POTASSIUM 25 MG TABLET PO SCH (09:24)
[2019-02-07] MEDS: AMLODIPINE BESYLATE 5 MG TABLET PO SCH ×2 (09:24→22:04)
[2019-02-07] MEDS: ASCORBIC ACID 500 MG TABLET PO SCH (09:24)
[2019-02-07] MEDS: TAMSULOSIN HCL 0.4 MG CAP.SR.24H PO SCH (09:24)
[2019-02-07] MEDS: FAMOTIDINE 20 MG TABLET PO SCH (09:24)
[2019-02-07 15:29] LABS: C DIFFICILE GDH NEGATIVE (NEGATIVE)
--- NOTE | 2019-02-07 16:20 | RADIOLOGY REPORT (SQ) ---
EXAM DESCRIPTION: CT CHEST WITHOUT COMPLETED DATE/TIME: 02/07/2019 3:56 pm REASON FOR STUDY: pleural effusions COMPARISON: 01/27/2019 TECHNIQUE: CT scan performed of the chest without intravenous contrast. Images reviewed with lung, soft tissue and bone windows. Reconstructed coronal and sagittal MPR images reviewed. All images st ored on PACS. All CT scanners at this facility use dose modulation, iterative reconstruction, and/or weight based d osing when appropriate to reduce radiation dose to as low as reasonably achievable (ALARA). [facility]: Dose Right [facility]: CareDose [facility]: Dose Right [facility]: Teradose 4D [facility]: Veduca RADIATION DOSE: CT Rad equipment meets quality standard of care and radiation dose reduction techniq ues were employed. CTDIvol: 10.4 - 13.4 mGy. DLP: 726 mGy-cm. mGy. LIMITATIONS: No technical limitations. FINDINGS: LUNGS AND PLEURA: Persistent bilateral pleural effusions right greater than left. Persist ent bilateral airspace disease although improved when compared to prior chest CT. There are dilated central airways consistent with bronchiectasis. This is more apparent on today's study. HILAR AND MEDIASTINAL STRUCTURES: No identified masses or abnormal nodes. No obvious aneurysm. HEART AND VASCULAR STRUCTURES: No aneurysm. No pericardial effusion. UPPER ABDOMEN: 4.8 x 4.6 cm infrarenal abdominal aortic aneurysm is noted. THYROID AND OTHER SOFT TISSUES: No masses. No adenopathy. BONES: No significant finding. HARDWARE: None in the chest. OTHER: Hiatal hernia is noted. IMPRESSION: 1. Grossly stable bilateral pleural effusions. Right greater than left. 2. Persistent diffuse bilateral airspace disease most marked in the upper lobes. There has been sli ght improvement when compared to prior study. TECHNICAL DOCUMENTATION: JOB ID: [id number] Quality ID # [id number]: Final reports with documentation of one or more dose reduction techniques (e.g., Au tomated exposure control, adjustment of the mA and/or kV according to patient size, use of iterative reconstruction technique) 2010 [employer]- All Rights Reserved Reading location - IP/workstation name: [email or web address]
--- NOTE | 2019-02-07 17:53 | PDOC PROGRESS REPORT ---
Subjective Progress Note for:: 02/07/19 Subjective:: This is a 89-year-old male with a past medical history of COPD and CHF who was brought in due to increasing shortness of breath from [facility] for rehab following a left AKA. The CT of the chest which showed extensive bilateral pleural effusion with consolidation. He was given IV antibiotics and was also diuresed. He underwent right-sided thoracentesis on 01/30/2019 and had 1060 cc drained. Upon encounter this morning, patient is saturating well on 2 L of nasal cannula. He says he is not acutely short of breath but has not been moving a lot. He denies chest pain. Reason For Visit: PNA Physical Exam Vital Signs: Temp Pulse Resp BP Pulse Ox 98.1 F 81 16 117/66 93 02/07/19 11:12 02/07/19 14:06 02/07/19 14:06 02/07/19 11:12 02/07/19 14:06 Pulse Oximeter Continuous Start: 01/29/19 17:01 Freq: RTQ4 Status: Hold Protocol: Document 01/29/19 17:46 [facility] (Rec: 01/29/19 17:46 [facility] [id number]) Pulse Oximetry Assessment Oxygen Saturation (92-100) 90 Oxygen Flow Rate (L/min) 3 Oxygen Delivery Method Nasal Cannula Equipment Usage Initial Set Up Continuous Pulse Oximeter 24 Hour Charge Charge Now Continuous SpO2 Machine # N-11 Intake & Output 02/06/19 02/07/19 02/08/19 06:59 06:59 06:59 Intake Total 360 641 236 Output Total 4540 2395 600 [facility]2665 -1754 -364 Weight 150 lb 12.739 oz General appearance: PRESENT: no acute distress, well-developed, well-nourished Head exam: PRESENT: atraumatic, normocephalic Eye exam: PRESENT: conjunctiva pink, EOMI, PERRLA. ABSENT: scleral icterus Ear exam: PRESENT: normal external ear exam Mouth exam: PRESENT: moist, tongue midline Neck exam: ABSENT: carotid bruit, JVD, lymphadenopathy, thyromegaly Respiratory exam: PRESENT: decreased breath sounds, rhonchi. ABSENT: rales, wheezes Cardiovascular exam: PRESENT: RRR. ABSENT: diastolic murmur, rubs, systolic murmur Pulses: PRESENT: normal dorsalis pedis pul GI/Abdominal exam: PRESENT: normal bowel sounds, soft. ABSENT: distended, guarding, mass, organolmegaly, rebound, tenderness Rectal exam: PRESENT: deferred Neurological exam: PRESENT: alert, awake, oriented to person, oriented to place, oriented to time, CN II-XII grossly intact. ABSENT: motor sensory deficit Results Laboratory Results: 02/06/19 06:26 02/06/19 06:26 01/27/19 02/04/19 02/06/19 09:40 12:11 06:26 Troponin I 0.030 NT-Pro-B Natriuret Pep 65852 H 47937 H 92089 H Impressions: Chest/Abdomen CTA 01/27/19 10:41 IMPRESSION: 1. Negative examination for pulmonary embolism. 2. There is extensive bilateral perihilar ground-glass opacity and consolidation, most consistent with infection. Asymmetric edema may have this appearance. 3. Moderate bilateral pleural effusions and associated atelectasis or consolidation. 4. Cardiomegaly. Thoracentesis Ultrasound 01/30/19 11:01 IMPRESSION: SUCCESSFUL THORACENTESIS USING ULTRASOUND GUIDANCE. Chest X-Ray 02/05/19 10:00 IMPRESSION: Congestive heart failure. Chest CT 02/07/19 00:00 IMPRESSION: 1. Grossly stable bilateral pleural effusions. Right greater than left. 2. Persistent diffuse bilateral airspace disease most marked in the upper lobes. There has been slight improvement when compared to prior study. Assessment and Plan - Diagnosis (1) Acute respiratory failure with hypoxia Is this a current diagnosis for this admission?: Yes Plan: Secondary to bilateral pleural effusions and consolidation. Patient currently saturating well on 2 L nasal cannula. (2) Bacterial pneumonia Is this a current diagnosis for this admission?: Yes Plan: Completed IV antibiotics. Sputum culture result reviewed. (3) Bilateral pleural effusion Is this a current diagnosis for this admission?: Yes Plan: Patient underwent right-sided thoracentesis on 01/30/2019 and had 1060 cc drained. Currently getting diuresis with Lasix. (4) CAD (coronary artery disease) Is this a current diagnosis for this admission?: Yes (5) Chronic systolic CHF (congestive heart failure) Is this a current diagnosis for this admission?: Yes Plan: He did have elevated BNP. His chest x-ray showed possible pulmonary edema as well. Echo shows low normal EF. Continue Lasix. - Time Time Spent with patient: 25-34 minutes
[2019-02-07] MEDS: MIRTAZAPINE 15 MG TABLET PO SCH (22:04)
[2019-02-07] MEDS: ATORVASTATIN CALCIUM 40 MG TABLET PO SCH (22:04)
[2019-02-08] MEDS: IPRATROPIUM/ALBUTEROL 0.5-2.5 MG/3 ML AMPUL NEB SCH ×4 (01:44→20:39)
[2019-02-08] MEDS: HEPARIN SOD (PORCINE) 5,000 UNIT/ML 1 ML VIAL SUBCUT SCH ×3 (06:03→22:11)
[2019-02-08] MEDS: LOSARTAN POTASSIUM 25 MG TABLET PO SCH (10:14)
[2019-02-08] MEDS: GUAIFENESIN 600 MG TABLET.SA PO SCH ×2 (10:14→22:11)
[2019-02-08] MEDS: MULTIVITAMIN TABLET PO SCH (10:15)
[2019-02-08] MEDS: ASCORBIC ACID 500 MG TABLET PO SCH (10:15)
[2019-02-08] MEDS: COLCHICINE 0.6 MG TABLET PO SCH ×2 (10:15→22:12)
[2019-02-08] MEDS: CALCIUM CARBONATE 500 MG TABLET PO SCH ×2 (10:15→17:10)
[2019-02-08] MEDS: FUROSEMIDE 40 MG TABLET PO SCH ×2 (10:15→22:11)
[2019-02-08] MEDS: FERROUS SULFATE 325 MG TABLET PO SCH (10:15)
[2019-02-08] MEDS: AMLODIPINE BESYLATE 5 MG TABLET PO SCH ×2 (10:15→22:11)
[2019-02-08] MEDS: TAMSULOSIN HCL 0.4 MG CAP.SR.24H PO SCH (10:15)
[2019-02-08] MEDS: ASPIRIN 81 MG TABLET, ENT COATED PO SCH (10:15)
[2019-02-08] MEDS: FAMOTIDINE 20 MG TABLET PO SCH (10:15)
--- NOTE | 2019-02-08 16:36 | PDOC PROGRESS REPORT ---
Subjective Progress Note for:: 02/08/19 Subjective:: This is a 89-year-old male with a past medical history of COPD and CHF who was brought in due to increasing shortness of breath from [facility] for rehab following a left AKA. The CT of the chest which showed extensive bilateral pleural effusion with consolidation. He was given IV antibiotics and was also diuresed. He underwent right-sided thoracentesis on 01/30/2019 and had 1060 cc drained. 02/07: Upon encounter this morning, patient is saturating well on 2 L of nasal cannula. He says he is not acutely short of breath but has not been moving a lot. He denies chest pain. 02/08: No acute event overnight. Denies chest pain or SOB. Comfortabel and saturating well on 2L via NC. Reason For Visit: PNA Physical Exam Vital Signs: Temp Pulse Resp BP Pulse Ox 97.6 F 91 19 134/65 H 99 02/08/19 15:12 02/08/19 15:12 02/08/19 15:12 02/08/19 15:12 02/08/19 15:12 Pulse Oximeter Continuous Start: 01/29/19 17:01 Freq: RTQ4 Status: Hold Protocol: Document 01/29/19 17:46 [facility] (Rec: 01/29/19 17:46 [facility] [id number]) Pulse Oximetry Assessment Oxygen Saturation (92-100) 90 Oxygen Flow Rate (L/min) 3 Oxygen Delivery Method Nasal Cannula Equipment Usage Initial Set Up Continuous Pulse Oximeter 24 Hour Charge Charge Now Continuous SpO2 Machine # N-11 Intake & Output 02/07/19 02/08/19 02/09/19 06:59 06:59 06:59 Intake Total 641 236 460 Output Total 2007 5346 400 Balance -4214 -0718 60 Weight 154 lb 12.232 oz General appearance: PRESENT: no acute distress, well-developed, well-nourished Head exam: PRESENT: atraumatic, normocephalic Eye exam: PRESENT: conjunctiva pink, EOMI, PERRLA. ABSENT: scleral icterus Ear exam: PRESENT: normal external ear exam Mouth exam: PRESENT: moist, tongue midline Neck exam: ABSENT: carotid bruit, JVD, lymphadenopathy, thyromegaly Respiratory exam: PRESENT: rhonchi. ABSENT: rales, wheezes Cardiovascular exam: PRESENT: RRR. ABSENT: diastolic murmur, rubs, systolic murmur Pulses: PRESENT: normal dorsalis pedis pul GI/Abdominal exam: PRESENT: normal bowel sounds, soft. ABSENT: distended, guarding, mass, organolmegaly, rebound, tenderness Rectal exam: PRESENT: deferred Neurological exam: PRESENT: alert, awake, oriented to person, oriented to place, oriented to time, oriented to situation, CN II-XII grossly intact. ABSENT: motor sensory deficit Results Laboratory Results: 02/06/19 06:26 02/06/19 06:26 01/27/19 02/04/19 02/06/19 09:40 12:11 06:26 Troponin I 0.030 NT-Pro-B Natriuret Pep 92624 H 36216 H 98629 H Impressions: Chest/Abdomen CTA 01/27/19 10:41 IMPRESSION: 1. Negative examination for pulmonary embolism. 2. There is extensive bilateral perihilar ground-glass opacity and consolidation, most consistent with infection. Asymmetric edema may have this appearance. 3. Moderate bilateral pleural effusions and associated atelectasis or consolidation. 4. Cardiomegaly. Thoracentesis Ultrasound 01/30/19 11:01 IMPRESSION: SUCCESSFUL THORACENTESIS USING ULTRASOUND GUIDANCE. Chest X-Ray 02/05/19 10:00 IMPRESSION: Congestive heart failure. Chest CT 02/07/19 00:00 IMPRESSION: 1. Grossly stable bilateral pleural effusions. Right greater than left. 2. Persistent diffuse bilateral airspace disease most marked in the upper lobes. There has been slight improvement when compared to prior study. Assessment and Plan - Diagnosis (1) Acute respiratory failure with hypoxia Is this a current diagnosis for this admission?: Yes Plan: Secondary to bilateral pleural effusions and consolidation. Patient currently saturating well on 2 L nasal cannula. (2) Bacterial pneumonia Is this a current diagnosis for this admission?: Yes Plan: Completed IV antibiotics. Sputum culture result reviewed. (3) Bilateral pleural effusion Is this a current diagnosis for this admission?: Yes Plan: 02/07: Patient underwent right-sided thoracentesis on 01/30/2019 and had 1060 cc drained. Currently getting diuresis with Lasix. (4) Chronic systolic CHF (congestive heart failure) Is this a current diagnosis for this admission?: Yes Plan: He did have elevated BNP. His chest x-ray showed possible pulmonary edema as well. Echo shows low normal EF. Continue Lasix. (5) CAD (coronary artery disease) Is this a current diagnosis for this admission?: Yes - Time Time Spent with patient: 25-34 minutes
[2019-02-08] MEDS: ATORVASTATIN CALCIUM 40 MG TABLET PO SCH (22:11)
[2019-02-08] MEDS: MIRTAZAPINE 15 MG TABLET PO SCH (22:11)
[2019-02-09] MEDS: IPRATROPIUM/ALBUTEROL 0.5-2.5 MG/3 ML AMPUL NEB SCH ×4 (01:56→20:21)
[2019-02-09] MEDS: HEPARIN SOD (PORCINE) 5,000 UNIT/ML 1 ML VIAL SUBCUT SCH ×3 (05:42→21:58)
--- NOTE | 2019-02-09 10:53 | RADIOLOGY REPORT (SQ) ---
EXAM DESCRIPTION: ALFONSO SWALLOW COMPLETED DATE/TIME: 02/09/2019 10:36 am REASON FOR STUDY: rule out aspiration COMPARISON: None. TECHNIQUE: Videofluoroscopic swallowing examination was performed in conjunction with speech patholo gy. Videofluoroscopic imaging was obtained and reviewed and these are the findings: RADIATION DOSE: Fluoro time 3.17 minutes 2 images saved to PACS. LIMITATIONS: None FINDINGS: The patient was brought into the fluoro room and placed upright on a modified barium swall ow chair. The patient was then given multiple consistencies mixed with barium to swallow under live fluoroscopic video guidance. According to the Speech Pathologist there was no penetration or aspirat ion. Please refer to the speech pathology report for further details. IMPRESSION: NO EVIDENCE OF PENETRATION OR ASPIRATION. PLEASE SEE SPEECH PATHOLOGIST REPORT FOR OTHER FINDINGS AND RECOMMENDATIONS. COMMENT: None Quality ID [id number]: Final reports for procedures using fluoroscopy that document radiation exposure lulu king, or exposure time and number of fluorographic images (if radiation exposure indices are not avail able) TECHNICAL DOCUMENTATION: JOB ID: [id number] [employer]- All Rights Reserved Reading location - IP/workstation name: [email or web address]
[2019-02-09] MEDS: AMLODIPINE BESYLATE 5 MG TABLET PO SCH ×2 (11:13→21:54)
[2019-02-09] MEDS: ASCORBIC ACID 500 MG TABLET PO SCH (11:13)
[2019-02-09] MEDS: CALCIUM CARBONATE 500 MG TABLET PO SCH ×2 (11:13→17:19)
[2019-02-09] MEDS: FAMOTIDINE 20 MG TABLET PO SCH (11:13)
[2019-02-09] MEDS: LOSARTAN POTASSIUM 25 MG TABLET PO SCH (11:14)
[2019-02-09] MEDS: FUROSEMIDE 40 MG TABLET PO SCH ×2 (11:14→21:54)
[2019-02-09] MEDS: COLCHICINE 0.6 MG TABLET PO SCH ×2 (11:15→21:53)
[2019-02-09] MEDS: FERROUS SULFATE 325 MG TABLET PO SCH (11:18)
[2019-02-09] MEDS: GUAIFENESIN 600 MG TABLET.SA PO SCH ×2 (11:18→21:54)
[2019-02-09] MEDS: TAMSULOSIN HCL 0.4 MG CAP.SR.24H PO SCH (11:18)
[2019-02-09] MEDS: ASPIRIN 81 MG TABLET, ENT COATED PO SCH (11:18)
[2019-02-09] MEDS: MULTIVITAMIN TABLET PO SCH (11:18)
[2019-02-09 11:36] LABS: ANION GAP 9 (5-19); BLOOD UREA NITROGEN 20 mg/dL (7-20); CALCIUM 8.4 mg/dL (8.4-10.2); CARBON DIOXIDE 31 mmol/L (22-30); CHLORIDE 100 mmol/L (98-107); GLUCOSE 110 mg/dL (75-110); POTASSIUM 3.5 mmol/L (3.6-5.0)
--- NOTE | 2019-02-09 11:36 | ST Inp Modified Barium Swallow ---
Medical Diagnosis - Medical Diagnoses Medical Diagnosis Description & ICD-10 Code(s): acute respiratory failure with hypoxia, bacterial pneumonia ST Inpatient [facility] - General Date: 02/09/19 Date of Onset: 02/08/19 - History -: Medical - per EMR: Patient admitted 01/27 with shortness of breath. Patient is SNF resident with history of CHF, vascular dementia, CABGx5. Extensive bilateral pneumonia seen upon evaluation. Physician order indicates "evaluate for questionable aspiration pneumonia". Per nursing, no overt signs of aspiration seen or reported. Medications: Medications Reviewed Allergies: Refer to medical record - Subjective Current Nutritional Means: PO Current PO Diet: Regular Current Symptoms: Pneumonia Pain: Patient reports, 0/5 - Objective Assessment: Upright, Left Lateral - Food Trials Food Trials Used: Thin liquids, Pureed, Regular The Patient: Required Assist - Assessment Labial Function: Within Normal Limits Lingual Function: Within Normal Limits Mandibular Function: Within Normal Limits Dentition: Partial Velo-Pharyngeal Function: Unremarkable - Pharyngeal Stage Initiation of Pharyngeal Stage: Normal Decreased Laryngeal Elevation: No Reduced Velo-Pharyngeal Closure: no Reduced Pressure Generation: Yes Reduced Tongue Base Retraction: Yes - mild Pre-Swallowing Pooling in Valleculae: Mild Pre-Swallowing Pooling in Pyriforms: Mild Reduced Thyro-Hyiod Approximation: No Reduced Epiglottic Excursion: No Reduced Pharyngeal Peristalsis: No Multiple Swallows With: Cleared w/ Liquid Assist Post Swallow Residuals in Valleculae: Moderate Post Swallow Residuals in Pyriforms: Moderate Pahryngeal Stage Comments: No aspiration observed. Residue in valleculae and pyriform noted, this cleared with liquid wash. - Impression/Summary Laryngeal Penetration: No Tracheal Aspiration: no Compensatory Strategies: alternating bites and sips Patient Presents With: Pharyngeal stage dysph., Mild-Moderate Risk of Aspiration: Minimal Risk Due To: Valleculae residue and pyriform sinus residue, risk of aspiration after the swallow due to this - Recommendations Solid Diet Recommendations: Regular Liquid Diet Recommendations: Thin Strict Aspitarion Precautions: Yes Dysphagia Therapy with RECORD PRODUCER: No Recommended Techniques: Fully Upright During Meal, Small Bites and Sips, Alternate Bites/Sips Other Recommendations: Disussed recommendations with patient, nursing, and MD. - Time Total Time: 30 Total Timed Minutes: 30
--- NOTE | 2019-02-09 16:38 | PDOC PROGRESS REPORT ---
Subjective Progress Note for:: 02/09/19 Subjective:: This is a 89-year-old male with a past medical history of COPD and CHF who was brought in due to increasing shortness of breath from [facility] for rehab following a left AKA. The CT of the chest which showed extensive bilateral pleural effusion with consolidation. He was given IV antibiotics and was also diuresed. He underwent right-sided thoracentesis on 01/30/2019 and had 1060 cc drained. 02/07: Upon encounter this morning, patient is saturating well on 2 L of nasal cannula. He says he is not acutely short of breath but has not been moving a lot. He denies chest pain. 02/08: No acute event overnight. Denies chest pain or SOB. Comfortabel and saturating well on 2L via NC. 02/09: No acute event overnight. Discussed with patient, patient's and date pitter on bedside. No indication for acute thoracentesis at this time. We discussed in length about patient being stable to go back to [facility]. expresses surprise as she thought that patient will be staying here indefinitely. Discussed in length that patient is only here for acute treatment and as he is stable now and is close to his baseline, he is safe to go back to [facility]. She asked that I discuss this first with her son. Reason For Visit: PNA Physical Exam Vital Signs: Temp Pulse Resp BP Pulse Ox 97.4 F 82 16 122/64 97 02/09/19 12:04 02/09/19 14:20 02/09/19 14:20 02/09/19 12:04 02/09/19 14:20 Pulse Oximeter Continuous Start: 01/29/19 17:01 Freq: RTQ4 Status: Hold Protocol: Document 01/29/19 17:46 [facility] (Rec: 01/29/19 17:46 [facility] [id number]) Pulse Oximetry Assessment Oxygen Saturation (92-100) 90 Oxygen Flow Rate (L/min) 3 Oxygen Delivery Method Nasal Cannula Equipment Usage Initial Set Up Continuous Pulse Oximeter 24 Hour Charge Charge Now Continuous SpO2 Machine # [id number] Intake & Output 02/08/19 02/09/19 02/10/19 06:59 06:59 06:59 Intake Total 236 098 697 Output Total 1594 6449 155 Balance -1729 -1415 -163 Weight 154 lb 12.232 oz 158 lb 8.198 oz General appearance: PRESENT: no acute distress, well-developed, well-nourished Head exam: PRESENT: atraumatic, normocephalic Eye exam: PRESENT: conjunctiva pink, EOMI, PERRLA. ABSENT: scleral icterus Ear exam: PRESENT: normal external ear exam Mouth exam: PRESENT: moist, tongue midline Neck exam: ABSENT: carotid bruit, JVD, lymphadenopathy, thyromegaly Respiratory exam: PRESENT: rhonchi. ABSENT: rales, wheezes Cardiovascular exam: PRESENT: RRR. ABSENT: diastolic murmur, rubs, systolic murmur Pulses: PRESENT: normal dorsalis pedis pul GI/Abdominal exam: PRESENT: normal bowel sounds, soft. ABSENT: distended, guarding, mass, organolmegaly, rebound, tenderness Rectal exam: PRESENT: deferred Extremities exam: PRESENT: full ROM. ABSENT: calf tenderness, clubbing, pedal edema Neurological exam: PRESENT: alert, awake, oriented to person, oriented to place, oriented to time, oriented to situation, CN II-XII grossly intact. ABSENT: motor sensory deficit Results Laboratory Results: 02/06/19 06:26 02/09/19 10:50 02/09/19 10:50 Sodium 139.6 Potassium 3.5 L Chloride 100 Carbon Dioxide 31 H Anion Gap 9 BUN 20 Creatinine 1.25 Est GFR ( Amer) > 60 Glucose 110 Calcium 8.4 01/27/19 02/04/19 02/06/19 09:40 12:11 06:26 Troponin I 0.030 NT-Pro-B Natriuret Pep 18100 H 04530 H 54734 H Impressions: Chest/Abdomen CTA 01/27/19 10:41 IMPRESSION: 1. Negative examination for pulmonary embolism. 2. There is extensive bilateral perihilar ground-glass opacity and consolidation, most consistent with infection. Asymmetric edema may have this appearance. 3. Moderate bilateral pleural effusions and associated atelectasis or consolidation. 4. Cardiomegaly. Thoracentesis Ultrasound 01/30/19 11:01 IMPRESSION: SUCCESSFUL THORACENTESIS USING ULTRASOUND GUIDANCE. Chest X-Ray 02/05/19 10:00 IMPRESSION: Congestive heart failure. Chest CT 02/07/19 00:00 IMPRESSION: 1. Grossly stable bilateral pleural effusions. Right greater than left. 2. Persistent diffuse bilateral airspace disease most marked in the upper lobes. There has been slight improvement when compared to prior study. Modified Barium Swallow 02/09/19 00:00 IMPRESSION: NO EVIDENCE OF PENETRATION OR ASPIRATION. PLEASE SEE SPEECH PATHOLOGIST REPORT FOR OTHER FINDINGS AND RECOMMENDATIONS. Assessment and Plan - Diagnosis (1) Acute respiratory failure with hypoxia Is this a current diagnosis for this admission?: Yes Plan: Secondary to bilateral pleural effusions and consolidation. Patient currently saturating well on 2 L nasal cannula. (2) Bacterial pneumonia Is this a current diagnosis for this admission?: Yes Plan: Completed IV antibiotics. Sputum culture result reviewed. (3) Bilateral pleural effusion Is this a current diagnosis for this admission?: Yes Plan: 02/07: Patient underwent right-sided thoracentesis on 01/30/2019 and had 1060 cc drained. Currently getting diuresis with Lasix. 02/09: Possibly a combination of parapneumonic and hypoalbuminemia. However pleural fluid analysis is more consistent with transudative and hypoalbuminemia is likely more contributing to his pleural effusion. Discussed in length continuing protein supplements to try to improve his albumin. He is comfortable, with minimal O2 support. Discussed with pulmonology, no indication for repeat thoracentesis at this time. (4) Chronic systolic CHF (congestive heart failure) Is this a current diagnosis for this admission?: Yes Plan: He did have elevated BNP. His chest x-ray showed possible pulmonary edema as well. Echo shows low normal EF. Continue Lasix. (5) CAD (coronary artery disease) Is this a current diagnosis for this admission?: Yes Plan: Stable. - Time Time Spent with patient: 25-34 minutes
[2019-02-09] MEDS: MIRTAZAPINE 15 MG TABLET PO SCH (21:54)
[2019-02-09] MEDS: ATORVASTATIN CALCIUM 40 MG TABLET PO SCH (21:54)
[2019-02-10] MEDS: IPRATROPIUM/ALBUTEROL 0.5-2.5 MG/3 ML AMPUL NEB SCH ×3 (01:53→14:14)
[2019-02-10] MEDS: HEPARIN SOD (PORCINE) 5,000 UNIT/ML 1 ML VIAL SUBCUT SCH ×2 (06:23→14:57)
[2019-02-10] MEDS: FERROUS SULFATE 325 MG TABLET PO SCH (10:10)
[2019-02-10] MEDS: MULTIVITAMIN TABLET PO SCH (10:11)
[2019-02-10] MEDS: ASCORBIC ACID 500 MG TABLET PO SCH (10:11)
[2019-02-10] MEDS: CALCIUM CARBONATE 500 MG TABLET PO SCH (10:11)
[2019-02-10] MEDS: ASPIRIN 81 MG TABLET, ENT COATED PO SCH (10:11)
[2019-02-10] MEDS: FUROSEMIDE 40 MG TABLET PO SCH (10:11)
[2019-02-10] MEDS: GUAIFENESIN 600 MG TABLET.SA PO SCH (10:11)
[2019-02-10] MEDS: LOSARTAN POTASSIUM 25 MG TABLET PO SCH (10:12)
[2019-02-10] MEDS: TAMSULOSIN HCL 0.4 MG CAP.SR.24H PO SCH (10:12)
[2019-02-10] MEDS: FAMOTIDINE 20 MG TABLET PO SCH (10:12)
[2019-02-10] MEDS: AMLODIPINE BESYLATE 5 MG TABLET PO SCH (10:13)
[2019-02-10] MEDS: COLCHICINE 0.6 MG TABLET PO SCH (10:13)
--- NOTE | 2019-02-10 10:44 | RADIOLOGY REPORT (SQ) ---
EXAM DESCRIPTION: CHEST SINGLE VIEW COMPLETED DATE/TIME: 02/10/2019 10:29 am REASON FOR STUDY: reassess congestion COMPARISON: 02/05/2019 EXAM PARAMETERS: NUMBER OF VIEWS: One view. TECHNIQUE: Single frontal radiographic view of the chest acquired. RADIATION DOSE: NA LIMITATIONS: None. FINDINGS: Interval improvement of diffuse interstitial pulmonary, consistent with improving edema or infection. No new airspace opacity. Cardiomegaly status post median sternotomy. IMPRESSION: Interval improvement of diffuse interstitial pulmonary, consistent with improving edema or infection. No new airspace opacity. Cardiomegaly status post median sternotomy. TECHNICAL DOCUMENTATION: JOB ID: [id number] [employer]- All Rights Reserved Reading location - IP/workstation name: [email or web address]
--- NOTE | 2019-02-10 12:00 | PDOC CONSULTATION ---
Consultation Consult Date: 02/08/19 Attending physician:: LAINEY MCGUIRE Provider Consulted: JESSICA BOLIVAR Consult reason:: pna/chronic resp failure History of Present Illness Admission Date/PCP: 01/27/19 13:08 CANDIDO ZIMMERMAN MD History of Present Illness: CHELSY DE LEON is a 83 year old male with multiple medical problems including dementia peripheral vascular disease coronary artery disease. He presented with increasing shortness of breath and radiographically was found to have pneumonia he was started on IV antibiotics and NIPPV Past Medical History Cardiac Medical History: Reports: Atrial Fibrillation, Congestive Heart Failure, Coronary Artery Disease, Myocardial Infarction - 2000, Hypertension Pulmonary Medical History: Denies: Asthma, Bronchitis, Chronic Obstructive Pulmonary Disease (COPD), Pneumonia EENT Medical History: Reports: None Neurological Medical History: Denies: Ischemic CVA, Seizures Endocrine Medical History: Reports: None Renal/ Medical History: Reports: Chronic Kidney Disease Malignancy Medical History: Reports: None GI Medical History: Musculoskeltal Medical History: Reports: Arthritis Psychiatric Medical History: Reports: Dementia Denies: Depression Traumatic Medical History: Reports: None Hematology: Denies: Anemia Past Surgical History Past Surgical History: Reports: Coronary Artery Bypass Graft, Other - Left AKA Denies: Pacemaker Social History Information Source: [facility] Records Lives with: [facility] - For short-term rehab Smoking Status: Former Smoker Number of Years Smokin Frequency of Alcohol Use: None Hx Recreational Drug Use: No Drugs: None Hx Prescription Drug Abuse: No Do you have pets?: No Have you had any respiratory illnesses as a child?: No Have you been exposed to any sick contacts recently?: No Have you had any recent respiratory illnesses?: No Have you travelled outside of [place] in the past 12 months?: No - Advance Directive Resuscitation Status: Do Not Resuscitate Family History Parental Family History Reviewed: No Children Family History Reviewed: No Sibling(s) Family History Reviewed.: No Medication/Allergy Home Medications: Atorvastatin Calcium [Lipitor 40 mg Tablet] 40 mg PO QHS 02/04/18 Colchicine [Colcrys] 0.6 mg PO Q12 02/04/18 Ascorbic Acid [Vitamin C] 500 mg PO DAILY 01/27/19 Aspirin [Ecotrin 81 mg EC Tablet] 81 mg PO DAILY 01/27/19 Calcium Carbonate [Calcium] 600 mg PO BID 01/27/19 Ferrous Sulfate [Feosol 325 mg Tablet] 325 mg PO DAILY 01/27/19 Melatonin 5 mg PO HSP PRN 01/27/19 Mirtazapine 7.5 mg PO QHS 01/27/19 Multivitamin [Tab-A-Hema (Multiple Vitamin) Tablet] 1 tab PO DAILY 01/27/19 Tamsulosin HCl [Flomax 0.4 mg Cap.sr] 0.4 mg PO DAILY 01/27/19 Allergies/Adverse Reactions: zolpidem [From Ambien] Adverse Reaction (Verified 03/10/18 09:14) extreme confusion Review of Systems ROS unobtainable: Due to mental status Physical Exam Vital Signs: Temp Pulse Resp BP Pulse Ox 97.6 F 91 19 134/65 H 99 02/08/19 15:12 02/08/19 15:12 02/08/19 15:12 02/08/19 15:12 02/08/19 15:12 Pulse Oximeter Continuous Start: 01/29/19 17:01 Freq: RTQ4 Status: Hold Protocol: Document 01/29/19 17:46 [facility] (Rec: 01/29/19 17:46 [facility] [id number]) Pulse Oximetry Assessment Oxygen Saturation (92-100) 90 Oxygen Flow Rate (L/min) 3 Oxygen Delivery Method Nasal Cannula Equipment Usage Initial Set Up Continuous Pulse Oximeter 24 Hour Charge Charge Now Continuous SpO2 Machine # [id number] Intake & Output 02/07/19 02/08/19 02/09/19 06:59 06:59 06:59 Intake Total 641 236 460 Output Total 6393 9314 400 Balance -6496 -7206 60 Weight 70.2 kg General appearance: PRESENT: no acute distress, cooperative, disheveled, hard of hearing, thin, well-developed, well-nourished Head exam: PRESENT: atraumatic, normocephalic Eye exam: PRESENT: conjunctiva pale, EOMI. ABSENT: nystagmus Mouth exam: PRESENT: dry mucosa, neck supple, tongue midline Neck exam: ABSENT: carotid bruit, full ROM, JVD, lymphadenopathy, meningismus, tenderness, thyromegaly, tracheal deviation, tracheostomy, other Respiratory exam: PRESENT: decreased breath sounds, prolonged expiratory phas, rales, rhonchi, symmetrical, unlabored, wheezes. ABSENT: retraction, stridor, tachypnea Cardiovascular exam: PRESENT: irregular rhythm Pulses: PRESENT: normal radial pulses GI/Abdominal exam: PRESENT: soft. ABSENT: distended, guarding, mass, rebound, tenderness Extremities exam: ABSENT: calf tenderness, clubbing, joint swelling, tenderness Musculoskeletal exam: PRESENT: other - Status post left AKA. ABSENT: ambulatory, deformity, dislocation Neurological exam: PRESENT: altered Psychiatric exam: PRESENT: flat affect Focused psych exam: PRESENT: internal stimuli Skin exam: PRESENT: dry, warm Results Laboratory Results: 02/06/19 06:26 02/06/19 06:26 01/27/19 02/04/19 02/06/19 09:40 12:11 06:26 Troponin I 0.030 NT-Pro-B Natriuret Pep 16316 H 38645 H 83210 H Impressions: Chest/Abdomen CTA 01/27/19 10:41 IMPRESSION: 1. Negative examination for pulmonary embolism. 2. There is extensive bilateral perihilar ground-glass opacity and consolidation, most consistent with infection. Asymmetric edema may have this appearance. 3. Moderate bilateral pleural effusions and associated atelectasis or consolidation. 4. Cardiomegaly. Thoracentesis Ultrasound 01/30/19 11:01 IMPRESSION: SUCCESSFUL THORACENTESIS USING ULTRASOUND GUIDANCE. Chest X-Ray 02/05/19 10:00 IMPRESSION: Congestive heart failure. Chest CT 02/07/19 00:00 IMPRESSION: 1. Grossly stable bilateral pleural effusions. Right greater than left. 2. Persistent diffuse bilateral airspace disease most marked in the upper lobes. There has been slight improvement when compared to prior study. Assessment & Plan - Diagnosis (1) Acute respiratory failure with hypoxia Is this a current diagnosis for this admission?: Yes Plan: NIPPV supp O2 as you have done (2) Bacterial pneumonia Is this a current diagnosis for this admission?: Yes Plan: less likely that it is result of MRSA no + cultures thus (3) Chronic systolic CHF (congestive heart failure) Is this a current diagnosis for this admission?: Yes Plan: low normal EF Labs- All tests 24 hr 01/27/19 02/04/19 02/06/19 09:40 12:11 06:26 NT-Pro-B Natriuret Pep 72427 H 96325 H 15088 H (4) Bilateral pleural effusion Is this a current diagnosis for this admission?: Yes Plan: RR>>>L agree with thoracentesis difuse bronchectasis (5) CKD (chronic kidney disease) Is this a current diagnosis for this admission?: Yes Plan: Labs- All tests 24 hr 01/27/19 01/28/19 01/29/19 09:40 05:31 06:39 Creatinine 1.33 H 1.46 H 1.55 H 01/30/19 01/30/19 01/31/19 03:53 15:53 04:09 Creatinine 1.66 H 1.61 H 1.50 H 01/31/19 02/01/19 02/04/19 10:10 04:28 12:11 Creatinine 1.52 H 1.56 H 1.27 H 02/06/19 02/09/19 06:26 10:50 Creatinine 1.34 H 1.25
--- NOTE | 2019-02-10 12:02 | PDOC TRANSFER SUMMARY ---
General - Admit/Disc Date/PCP Admission Date/Primary Care Provider: 01/27/19 13:08 CANDIDO ZIMMERMAN MD Discharge Date: 02/10/19 - Discharge Diagnosis (1) Acute respiratory failure with hypoxia Is this a current diagnosis for this admission?: Yes (2) Bacterial pneumonia Is this a current diagnosis for this admission?: Yes (3) Bilateral pleural effusion Is this a current diagnosis for this admission?: Yes (4) Chronic systolic CHF (congestive heart failure) Is this a current diagnosis for this admission?: Yes (5) CAD (coronary artery disease) Is this a current diagnosis for this admission?: Yes - Additional Information Resuscitation Status: Do Not Resuscitate Discharge Diet: Cardiac Discharge Activity: Activity As Tolerated, Balance Activity w/Rest, Weigh Daily Prescriptions: Furosemide [Lasix 20 mg Tablet] 20 mg PO BID #60 tablet Metoprolol Tartrate [Lopressor 25 mg Tablet] 12.5 mg PO Q12 #30 tab Lisinopril [Prinivil 5 mg Tablet] 5 mg PO DAILY #30 tablet Home Medications: Atorvastatin Calcium [Lipitor 40 mg Tablet] 40 mg PO QHS 02/04/18 Colchicine [Colcrys] 0.6 mg PO Q12 02/04/18 Ascorbic Acid [Vitamin C] 500 mg PO DAILY 01/27/19 Aspirin [Ecotrin 81 mg EC Tablet] 81 mg PO DAILY 01/27/19 Calcium Carbonate [Calcium] 600 mg PO BID 01/27/19 Ferrous Sulfate [Feosol 325 mg Tablet] 325 mg PO DAILY 01/27/19 Melatonin 5 mg PO HSP PRN 01/27/19 Mirtazapine 7.5 mg PO QHS 01/27/19 Multivitamin [Tab-A-Hema (Multiple Vitamin) Tablet] 1 tab PO DAILY 01/27/19 Tamsulosin HCl [Flomax 0.4 mg Cap.sr] 0.4 mg PO DAILY 01/27/19 Furosemide [Lasix 20 mg Tablet] 20 mg PO BID #60 tablet 02/10/19 Lisinopril [Prinivil 5 mg Tablet] 5 mg PO DAILY #30 tablet 02/10/19 Metoprolol Tartrate [Lopressor 25 mg Tablet] 12.5 mg PO Q12 #30 tab 02/10/19 History of Present Illness Admission Date/PCP: 01/27/19 13:08 CANDIDO ZIMMERMAN MD History of Present Illness: Admitting hospitalist's H&P: CHELSY DE LEON is a 83 year old male with a past medical history significant for CHF, A. fib, CKD 3, CAD, anemia, PVD, vascular dementia, and CABG x5 who is a short-term resident at [facility] for rehab following a left AKA approximately 2 months ago at [facility] who today developed fever, malaise, productive cough (reportedly one episode of hemoptysis), and hypoxia on room air. Evaluation in the emergency department reveals tachypnea, hypoxia on room air, anemia with a hemoglobin of 8.0, normal WBC, chemistry revealing creatinine of 1.33 (unknown baseline), proBNP of 16,000, EKG showing sinus rhythm with an RBBB (present on prior EKGs), and CTA Chest is negative for PE but does show extensive bilateral pneumonia. Patient is provided IV vancomycin and Zosyn; is referred to the hospitalist service for admission and management of the above- stated complaints and findings. Hospital Course Hospital Course: This is a 89-year-old male with a past medical history of COPD and CHF who was brought in due to increasing shortness of breath from [facility] for rehab following a left AKA. The CT of the chest which showed extensive bilateral pl eural effusion with consolidation. He was given IV antibiotics and was also diuresed. He underwent right-sided thoracentesis on 01/30/2019 and had 1060 cc drained. 02/07: Upon encounter this morning, patient is saturating well on 2 L of nasal cannula. He says he is not acutely short of breath but has not been moving a lot. He denies chest pain. 02/08: No acute event overnight. Denies chest pain or SOB. Comfortable and saturating well on 2L via NC. 02/09: No acute event overnight. Discussed with patient, patient's and inspection and testing supervisor on bedside. No indication for repeat thoracentesis at this time. We discussed in length about patient being stable to go back to [facility]. expresses surprise as she thought that patient will be staying here indefinitely. Discussed in length that patient is only here for acute treatment and as he is stable now and is close to his baseline, he is safe to go back to [facility]. 02/10: Repeat chest x-ray shows resolution of pneumonia and congestion. No significant pleural effusion on repeat chest x-ray as well. He has responded well to antibiotics and diuresis. He is at his baseline. He will be discharged back to [facility]. He will be discharged on p.o. Lasix. He has completed IV antibiotics during this course. Added Magic cup to his dietary regimen as well to increase protein intake. Physical Exam Vital Signs: Temp Pulse Resp BP Pulse Ox 98.0 F 82 14 107/57 L 97 02/10/19 07:42 02/10/19 08:20 02/10/19 08:20 02/10/19 07:42 02/10/19 08:20 Pulse Oximeter Continuous Start: 01/29/19 17:01 Freq: RTQ4 Status: Hold Protocol: Document 01/29/19 17:46 [facility] (Rec: 01/29/19 17:46 [facility] [id number]) Pulse Oximetry Assessment Oxygen Saturation (92-100) 90 Oxygen Flow Rate (L/min) 3 Oxygen Delivery Method Nasal Cannula Equipment Usage Initial Set Up Continuous Pulse Oximeter 24 Hour Charge Charge Now Continuous SpO2 Machine # [id number] Intake & Output 02/09/19 02/10/19 02/11/19 06:59 06:59 06:59 Intake Total 560 1017 Output Total 1975 2360 Balance -1415 -1343 Weight 158 lb 8.198 oz 160 lb 7.944 oz General appearance: PRESENT: no acute distress, well-developed, well-nourished Head exam: PRESENT: atraumatic, normocephalic Eye exam: PRESENT: conjunctiva pink, EOMI, PERRLA. ABSENT: scleral icterus Ear exam: PRESENT: normal external ear exam Mouth exam: PRESENT: moist, tongue midline Neck exam: ABSENT: carotid bruit, JVD, lymphadenopathy, thyromegaly Respiratory exam: PRESENT: clear to auscultation patience. ABSENT: rales, wheezes Cardiovascular exam: PRESENT: RRR. ABSENT: diastolic murmur, rubs, systolic murmur Pulses: PRESENT: normal dorsalis pedis pul GI/Abdominal exam: PRESENT: normal bowel sounds, soft. ABSENT: distended, guarding, mass, organolmegaly, rebound, tenderness Rectal exam: PRESENT: deferred Extremities exam: PRESENT: full ROM. ABSENT: calf tenderness, clubbing, pedal edema Neurological exam: PRESENT: alert, awake, oriented to person, oriented to place, oriented to time, oriented to situation, CN II-XII grossly intact. ABSENT: motor sensory deficit Results Laboratory Results: 02/06/19 06:26 02/09/19 10:50 01/27/19 02/04/19 02/06/19 09:40 12:11 06:26 Troponin I 0.030 NT-Pro-B Natriuret Pep 36375 H 10021 H 89093 H Impressions: Chest/Abdomen CTA 01/27/19 10:41 IMPRESSION: 1. Negative examination for pulmonary embolism. 2. There is extensive bilateral perihilar ground-glass opacity and consolidation, most consistent with infection. Asymmetric edema may have this appearance. 3. Moderate bilateral pleural effusions and associated atelectasis or consolidation. 4. Cardiomegaly. Thoracentesis Ultrasound 01/30/19 11:01 IMPRESSION: SUCCESSFUL THORACENTESIS USING ULTRASOUND GUIDANCE. Chest CT 02/07/19 00:00 IMPRESSION: 1. Grossly stable bilateral pleural effusions. Right greater than left. 2. Persistent diffuse bilateral airspace disease most marked in the upper lobes. There has been slight improvement when compared to prior study. Modified Barium Swallow 02/09/19 00:00 IMPRESSION: NO EVIDENCE OF PENETRATION OR ASPIRATION. PLEASE SEE SPEECH PATHOLOGIST REPORT FOR OTHER FINDINGS AND RECOMMENDATIONS. Chest X-Ray 02/10/19 09:58 IMPRESSION: Interval improvement of diffuse interstitial pulmonary, consistent with improving edema or infection. No new airspace opacity. Cardiomegaly status post median sternotomy. Qualifiers - * PATIENT BEING DISCHARGED WITH ANY OF THE FOLLOWING DIAGNOSIS: No Acute Heart Failure - Is this a Heart Failure Patient?: No
[2019-02-10 16:11] VITALS: BP 123/68
--- NOTE | 2019-02-13 11:26 | PDOC PROGRESS REPORT ---
Subjective Progress Note for:: 02/09/19 Subjective:: slightly better Reason For Visit: PNA Physical Exam Vital Signs: Temp Pulse Resp BP Pulse Ox 98.0 F 82 14 107/57 L 97 02/10/19 07:42 02/10/19 08:20 02/10/19 08:20 02/10/19 07:42 02/10/19 08:20 Pulse Oximeter Continuous Start: 01/29/19 17:01 Freq: RTQ4 Status: Hold Protocol: Document 01/29/19 17:46 [facility] (Rec: 01/29/19 17:46 [facility] [email or web address]) Pulse Oximetry Assessment Oxygen Saturation (92-100) 90 Oxygen Flow Rate (L/min) 3 Oxygen Delivery Method Nasal Cannula Equipment Usage Initial Set Up Continuous Pulse Oximeter 24 Hour Charge Charge Now Continuous SpO2 Machine # N-11 Intake & Output 02/09/19 02/10/19 02/11/19 06:59 06:59 06:59 Intake Total 560 1017 Output Total 5105 4250 Balance -1415 -1343 Weight 71.9 kg 72.8 kg General appearance: PRESENT: no acute distress, cooperative, disheveled, well- developed, well-nourished Head exam: PRESENT: atraumatic, normocephalic Eye exam: PRESENT: conjunctiva pale, EOMI. ABSENT: nystagmus Mouth exam: PRESENT: dry mucosa, neck supple, tongue midline Neck exam: ABSENT: carotid bruit, full ROM, JVD, lymphadenopathy, meningismus, tenderness, thyromegaly, tracheal deviation, tracheostomy, other Respiratory exam: PRESENT: decreased breath sounds, prolonged expiratory phas, rhonchi, unlabored. ABSENT: retraction, stridor, tachypnea Cardiovascular exam: PRESENT: RRR, +S1, +S2 Pulses: PRESENT: normal radial pulses GI/Abdominal exam: PRESENT: soft. ABSENT: distended, guarding, mass, rebound, tenderness Extremities exam: ABSENT: calf tenderness, clubbing, tenderness Musculoskeletal exam: ABSENT: deformity, dislocation Neurological exam: PRESENT: awake Psychiatric exam: PRESENT: flat affect Skin exam: PRESENT: dry, warm Results Laboratory Results: 02/06/19 06:26 02/09/19 10:50 01/27/19 02/04/19 02/06/19 09:40 12:11 06:26 Troponin I 0.030 NT-Pro-B Natriuret Pep 70681 H 43887 H 57812 H Impressions: Chest/Abdomen CTA 01/27/19 10:41 IMPRESSION: 1. Negative examination for pulmonary embolism. 2. There is extensive bilateral perihilar ground-glass opacity and consolidation, most consistent with infection. Asymmetric edema may have this appearance. 3. Moderate bilateral pleural effusions and associated atelectasis or consolidation. 4. Cardiomegaly. Thoracentesis Ultrasound 01/30/19 11:01 IMPRESSION: SUCCESSFUL THORACENTESIS USING ULTRASOUND GUIDANCE. Chest CT 02/07/19 00:00 IMPRESSION: 1. Grossly stable bilateral pleural effusions. Right greater than left. 2. Persistent diffuse bilateral airspace disease most marked in the upper lobes. There has been slight improvement when compared to prior study. Modified Barium Swallow 02/09/19 00:00 IMPRESSION: NO EVIDENCE OF PENETRATION OR ASPIRATION. PLEASE SEE SPEECH PATHOLOGIST REPORT FOR OTHER FINDINGS AND RECOMMENDATIONS. Chest X-Ray 02/10/19 09:58 IMPRESSION: Interval improvement of diffuse interstitial pulmonary, consistent with improving edema or infection. No new airspace opacity. Cardiomegaly status post median sternotomy. Assessment & Plan - Diagnosis (1) Acute respiratory failure with hypoxia Is this a current diagnosis for this admission?: Yes Plan: NIPPV supp O2 as you have done (2) Bacterial pneumonia Is this a current diagnosis for this admission?: Yes Plan: barium swallow does show some degree of aspiration (3) Bilateral pleural effusion Is this a current diagnosis for this admission?: Yes Plan: RR>>>L agree with thoracentesis difuse bronchectasis (4) CKD (chronic kidney disease) Is this a current diagnosis for this admission?: Yes Plan: Labs- All tests 24 hr 01/27/19 01/28/19 01/29/19 09:40 05:31 06:39 Creatinine 1.33 H 1.46 H 1.55 H 01/30/19 01/30/19 01/31/19 03:53 15:53 04:09 Creatinine 1.66 H 1.61 H 1.50 H 01/31/19 02/01/19 02/04/19 10:10 04:28 12:11 Creatinine 1.52 H 1.56 H 1.27 H 02/06/19 02/09/19 06:26 10:50 Creatinine 1.34 H 1.25 (5) Chronic systolic CHF (congestive heart failure) Is this a current diagnosis for this admission?: Yes Plan: low normal EF Labs- All tests 24 hr 01/27/19 02/04/19 02/06/19 09:40 12:11 06:26 NT-Pro-B Natriuret Pep 71059 H 05753 H 49315 H
--- NOTE | 2019-02-13 11:29 | PDOC PROGRESS REPORT ---
Subjective Progress Note for:: 02/10/19 Subjective:: Still has a flat affect Reason For Visit: PNA Physical Exam Vital Signs: Temp Pulse Resp BP Pulse Ox 98.0 F 82 14 107/57 L 97 02/10/19 07:42 02/10/19 08:20 02/10/19 08:20 02/10/19 07:42 02/10/19 08:20 Pulse Oximeter Continuous Start: 01/29/19 17:01 Freq: RTQ4 Status: Hold Protocol: Document 01/29/19 17:46 [facility] (Rec: 01/29/19 17:46 [facility] [email or web address]) Pulse Oximetry Assessment Oxygen Saturation (92-100) 90 Oxygen Flow Rate (L/min) 3 Oxygen Delivery Method Nasal Cannula Equipment Usage Initial Set Up Continuous Pulse Oximeter 24 Hour Charge Charge Now Continuous SpO2 Machine # N-11 Intake & Output 02/09/19 02/10/19 02/11/19 06:59 06:59 06:59 Intake Total 560 1017 Output Total 6569 2360 Balance -1415 -1343 Weight 71.9 kg 72.8 kg General appearance: PRESENT: no acute distress, disheveled, thin, well- developed, well-nourished Head exam: PRESENT: atraumatic, normocephalic Eye exam: PRESENT: conjunctiva pale, EOMI. ABSENT: nystagmus Mouth exam: PRESENT: dry mucosa, neck supple, tongue midline Neck exam: ABSENT: carotid bruit, full ROM, JVD, lymphadenopathy, meningismus, tenderness, thyromegaly, tracheal deviation, tracheostomy, other Respiratory exam: PRESENT: decreased breath sounds, prolonged expiratory phas, rales, rhonchi, unlabored. ABSENT: retraction, stridor, tachypnea Cardiovascular exam: PRESENT: RRR, +S1, +S2 Pulses: PRESENT: normal radial pulses GI/Abdominal exam: PRESENT: soft. ABSENT: distended, guarding, mass, rebound, other Extremities exam: ABSENT: calf tenderness, clubbing, joint swelling, pedal edema, tenderness Musculoskeletal exam: ABSENT: ambulatory, deformity, dislocation Neurological exam: PRESENT: altered Psychiatric exam: PRESENT: flat affect Skin exam: PRESENT: dry, warm Results Laboratory Results: 02/06/19 06:26 02/09/19 10:50 01/27/19 02/04/19 02/06/19 09:40 12:11 06:26 Troponin I 0.030 NT-Pro-B Natriuret Pep 75792 H 35669 H 54790 H Impressions: Chest/Abdomen CTA 01/27/19 10:41 IMPRESSION: 1. Negative examination for pulmonary embolism. 2. There is extensive bilateral perihilar ground-glass opacity and consol idation, most consistent with infection. Asymmetric edema may have this appearance. 3. Moderate bilateral pleural effusions and associated atelectasis or consolidation. 4. Cardiomegaly. Thoracentesis Ultrasound 01/30/19 11:01 IMPRESSION: SUCCESSFUL THORACENTESIS USING ULTRASOUND GUIDANCE. Chest CT 02/07/19 00:00 IMPRESSION: 1. Grossly stable bilateral pleural effusions. Right greater than left. 2. Persistent diffuse bilateral airspace disease most marked in the upper lobes. There has been slight improvement when compared to prior study. Modified Barium Swallow 02/09/19 00:00 IMPRESSION: NO EVIDENCE OF PENETRATION OR ASPIRATION. PLEASE SEE SPEECH PATHOLOGIST REPORT FOR OTHER FINDINGS AND RECOMMENDATIONS. Chest X-Ray 02/10/19 09:58 IMPRESSION: Interval improvement of diffuse interstitial pulmonary, consistent with improving edema or infection. No new airspace opacity. Cardiomegaly status post median sternotomy. Assessment & Plan - Diagnosis (1) Acute respiratory failure with hypoxia Is this a current diagnosis for this admission?: Yes Plan: NIPPV supp O2 as you have done (2) Bacterial pneumonia Is this a current diagnosis for this admission?: Yes Plan: barium swallow does show some degree of aspiration (3) Bilateral pleural effusion Is this a current diagnosis for this admission?: Yes Plan: RR>>>L agree with thoracentesis difuse bronchectasis (4) CKD (chronic kidney disease) Is this a current diagnosis for this admission?: Yes Plan: Labs- All tests 24 hr 01/27/19 01/28/19 01/29/19 09:40 05:31 06:39 Creatinine 1.33 H 1.46 H 1.55 H 01/30/19 01/30/19 01/31/19 03:53 15:53 04:09 Creatinine 1.66 H 1.61 H 1.50 H 01/31/19 02/01/19 02/04/19 10:10 04:28 12:11 Creatinine 1.52 H 1.56 H 1.27 H 02/06/19 02/09/19 06:26 10:50 Creatinine 1.34 H 1.25 (5) Chronic systolic CHF (congestive heart failure) Is this a current diagnosis for this admission?: Yes Plan: low normal EF Labs- All tests 24 hr 01/27/19 02/04/19 02/06/19 09:40 12:11 06:26 NT-Pro-B Natriuret Pep 67497 H 28530 H 44723 H
== END 2019-02-10 16:30 | DRG 193 ==
LOC: ER 09:16 → EH 13:08 → 4S 15:17 → ICU 01-29 18:49 → 3W 01-31 20:13 → 4S 02-03 19:16
PROVIDERS: ADMIT Internal Medicine; ATTEND Internal Medicine
PROC: 30233N1 Transfusion of Nonautologous Red Blood Cells into Peripheral Vein, Percutaneous Approach (ICD-10-PCS; 2019-01-28)
PROC: 0W9930Z Drainage of Right Pleural Cavity with Drainage Device, Percutaneous Approach (ICD-10-PCS; principal; 2019-01-30)
DX: J15.9 Unspecified bacterial pneumonia (principal); J96.01 Acute respiratory failure with hypoxia; I50.22 Chronic systolic (congestive) heart failure; I13.0 Hypertensive heart and chronic kidney disease with heart failure and stage 1 through stage 4 chronic kidney disease, or unspecified chronic kidney disease; J44.0 Chronic obstructive pulmonary disease with (acute) lower respiratory infection; I25.10 Atherosclerotic heart disease of native coronary artery without angina pectoris; Z66 Do not resuscitate; N18.3 Chronic kidney disease, stage 3 (moderate); D63.1 Anemia in chronic kidney disease; I45.10 Unspecified right bundle-branch block; I73.9 Peripheral vascular disease, unspecified; F03.90 Unspecified dementia, unspecified severity, without behavioral disturbance, psychotic disturbance, mood disturbance, and anxiety; I48.91 Unspecified atrial fibrillation; M10.9 Gout, unspecified; L89.152 Pressure ulcer of sacral region, stage 2; L89.611 Pressure ulcer of right heel, stage 1; L97.512 Non-pressure chronic ulcer of other part of right foot with fat layer exposed; I25.2 Old myocardial infarction; Z95.1 Presence of aortocoronary bypass graft; Z79.899 Other long term (current) drug therapy; Z89.612 Acquired absence of left leg above knee; Z87.891 Personal history of nicotine dependence; Z88.8 Allergy status to other drugs, medicaments and biological substances; Z79.82 Long term (current) use of aspirin
CPT/HCPCS: 32555; 36415; 36430; 36600; 71045; 71250; 71275; 74230; 80048; 80053; 80069; 80202; 81001; 82150; 82272; 82565; 82607; 82728; 82746; 82803; 82945; 83540; 83550; 83615; 83735; 83880; 84100; 84155; 84157; 84484; 85025; 85027; 85045; 85610; 85730; 86850; 86870; 86880; 86900; 86901; 86920; 86922; 87040; 87070; 87075; 87086; 87205; 87324; 87449; 88305; 89050; 93005; 93010; 93306; 94640; 94667; 94762; 94799; 96365; 96366; 96368; 99285; J1644; J1756; J1940; J1956; J2543; J3370; J3420; J3490; J7050; J7060; J7620; P9016

== ENCOUNTER 2019-03-29 16:22 | Emergency (ER) | payer MEDICARE, OTHER ==
[2019-03-29 17:08] LABS: ABSOLUTE BASOPHILS # (AUTO) 0.1 10^3/uL (0.0-0.2); ABSOLUTE EOSINOPHILS # (AUTO) 0.4 10^3/uL (0.0-0.6); ABSOLUTE LYMPHOCYTES (AUTO) 0.9 10^3/uL (0.5-4.7); ABSOLUTE NEUT (AUTO) 10.8 10^3/uL (1.7-8.2); BASOPHILS % (AUTO) 0.4 % (0-2); HEMATOCRIT 30.2 % (37.9-51.0); HEMOGLOBIN 9.7 g/dL (13.5-17.0); LYMPHOCYTES % (AUTO) 6.6 % (13-45); MEAN CORPUSCULAR HGB CONC 32.1 g/dL (32.0-36.0); MEAN CORPUSCULAR VOLUME 81 fl (80-97); MONOCYTES % (AUTO) 7.5 % (3-13); PLATELET COUNT 381 10^3/uL (150-450); RED BLOOD COUNT 3.73 10^6/uL (4.35-5.55); RED CELL DISTRIBUTION WIDTH 20.8 % (11.5-14.0); SEGMENTED NEUTROPHILS % (AUTO) 82.5 % (42-78); TOTAL CELLS COUNTED % (AUTO) 100 %; WHITE BLOOD COUNT 13.1 10^3/uL (4.0-10.5)
[2019-03-29 17:31] LABS: ALKALINE PHOSPHATASE 150 U/L (38-126); ANION GAP 8 (5-19); ASPARTATE AMINO TRANSFERASE 106 U/L (17-59); BILIRUBIN,DIRECT 0.3 mg/dL (0.0-0.4); BILIRUBIN,TOTAL 0.5 mg/dL (0.2-1.3); BLOOD UREA NITROGEN 50 mg/dL (7-20); CARBON DIOXIDE 28 mmol/L (22-30); CHLORIDE 105 mmol/L (98-107); GLUCOSE 147 mg/dL (75-110); POTASSIUM 4.5 mmol/L (3.6-5.0); TOTAL PROTEIN 7.4 g/dL (6.3-8.2)
--- NOTE | 2019-03-29 19:00 | EKG REPORT ---
SEVERITY:- ABNORMAL ECG - SINUS RHYTHM RIGHT BUNDLE BRANCH BLOCK ANTERIOR Q WAVES, POSSIBLY DUE TO LVH LAFB : Confirmed by: Parker Dee MD 29-Mar-2019 18:59:48
[2019-03-29] MEDS ORDERED: MORPHINE SULFATE 10 MG/ML INJ IV ONE (19:13)
--- NOTE | 2019-03-29 19:59 | RADIOLOGY REPORT (SQ) ---
EXAM DESCRIPTION: FOOT RIGHT 2 VIEWS COMPLETED DATE/TIME: 03/29/2019 7:46 pm REASON FOR STUDY: wound COMPARISON: None. NUMBER OF VIEWS: Three views. TECHNIQUE: AP, lateral and oblique radiographic images acquired of the right foot. LIMITATIONS: None. FINDINGS: MINERALIZATION: Osteopenia. BONES: No acute fracture or dislocation. No worrisome bone lesions. Calcaneal plantar enthesophyte. JOINTS: No effusions. Degenerate changes throughout the hindfoot and midfoot. Hallux valgus alignme nt with bunion formation and 1st MTP joint degenerative changes. SOFT TISSUES: Soft tissue defect along the medial aspect of the forefoot at the level of the 1st MTP joint. OTHER: No other significant finding. IMPRESSION: Medial forefoot soft tissue defect adjacent to the 1st MTP joint. No obvious acute unde rlying bone abnormality, in the setting of osteopenia. TECHNICAL DOCUMENTATION: JOB ID: [id number] [employer]- All Rights Reserved Reading location - IP/workstation name: [email or web address]
--- NOTE | 2019-03-29 23:23 | ER Document Report ---
ED Skin Rash/Insect Bite/Abscs - General Chief Complaint: Wound Infection Stated Complaint: SKIN WOUND Time Seen by Provider: 03/29/19 17:33 Primary Care Provider: CANDIDO ZIMMERMAN MD [Primary Care Provider] - Follow up as needed Notes: Patient is an 83-year-old male presents to the emergency department with a pos sible infected wound on his right foot. Patient was sent to the emergency department by [facility]. Report is obtained from nursing staff who spoke with EMS. Nursing staff states [facility] staff thought patient may have an infection in his right foot based on increase in his white blood cells which is why they present him to the emergency department. Patient is denying any fevers. Patient's denying any increase in pain or pressure to the right foot. Patient voices he does have an appointment with vascular surgery tomorrow. Patient lost his left lower extremity due to peripheral vascular disease. TRAVEL OUTSIDE OF THE [place] IN LAST 30 DAYS: No - Related Data Allergies/Adverse Reactions: zolpidem [From Ambien] Adverse Reaction (Verified 03/29/19 16:50) extreme confusion Past Medical History - General Information source: Patient, Emergency Med Personnel - Social History Smoking Status: Never Smoker Family History: None, Reviewed & Not Pertinent Patient has suicidal ideation: No Patient has homicidal ideation: No - Past Medical History Cardiac Medical History: Reports: Hx Atrial Fibrillation, Hx Congestive Heart Failure, Hx Coronary Artery Disease, Hx Heart Attack - 2000, Hx Hypertension Pulmonary Medical History: Denies: Hx Asthma, Hx Bronchitis, Hx COPD, Hx Pneumonia Neurological Medical History: Denies: Hx Cerebrovascular Accident, Hx Seizures GI Medical History: Musculoskeletal Medical History: Reports Hx Arthritis Psychiatric Medical History: Reports: Hx Dementia Denies: Hx Depression Infectious Medical History: Past Surgical History: Reports: Hx Cardiac Surgery - CABG x5, Hx Coronary Artery Bypass Graft, Other - Left AKA. Denies: Hx Pacemaker - Immunizations Hx Diphtheria, Pertussis, Tetanus Vaccination: No Review of Systems - Review of Systems Constitutional: denies: Fever EENT: No symptoms reported Cardiovascular: No symptoms reported Respiratory: No symptoms reported Gastrointestinal: No symptoms reported Genitourinary: No symptoms reported Male Genitourinary: No symptoms reported Musculoskeletal: See HPI Skin: See HPI Hematologic/Lymphatic: No symptoms reported Neurological/Psychological: No symptoms reported Physical Exam - Vital signs Vitals: Temp Resp BP Pulse Ox 98.3 F 18 129/72 H 99 03/29/19 16:28 03/29/19 16:28 03/29/19 16:28 03/29/19 16:28 - Notes Notes: GENERAL: Alert, interacts well. No acute distress. HEAD: Normocephalic, atraumatic. EYES: Pupils equal, round, and reactive to light. Extraocular movements intact. ENT: Oral mucosa moist, tongue midline. NECK: Full range of motion. Supple. Trachea midline. LUNGS: Clear to auscultation bilaterally, no wheezes, rales, or rhonchi. No respiratory distress. HEART: Regular rate and rhythm. No murmur ABDOMEN: Soft, non-tender. Non-distended. Bowel sounds present in all 4 quadrants. EXTREMITIES: Moves all 4 extremities spontaneously. 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 Right lower extremity shinny, loss of hair with an area of black tissue noted left toe and pad of foot, with slight surrounding erythema. Great toe does have a capillary refill less than 2 seconds. Pt. can move all five toes right foot and complains of pain on palpation. BACK: no cervical, thoracic, lumbar midline tenderness. No saddle anesthesia, normal distal neurovascular exam. NEUROLOGICAL: Alert and oriented x3. Normal speech. PSYCH: Normal affect, normal mood. SKIN: Warm, dry. Course - Re-evaluation Re-evalutation: Laboratory 03/29/19 03/29/19 03/29/19 16:45 16:45 16:45 WBC 13.1 H RBC 3.73 L Hgb 9.7 L Hct 30.2 L MCV 81 MCH 26.0 L MCHC 32.1 RDW 20.8 H Plt Count 381 Lymph % (Auto) 6.6 L Andrew % (Auto) 7.5 Eos % (Auto) 3.0 Baso % (Auto) 0.4 Absolute Neuts (auto) 10.8 H Absolute Lymphs (auto) 0.9 Absolute Monos (auto) 1.0 Absolute Eos (auto) 0.4 Absolute Basos (auto) 0.1 Seg Neutrophils % 82.5 H Sodium 141.2 Potassium 4.5 Chloride 105 Carbon Dioxide 28 Anion Gap 8 BUN 50 H Creatinine 1.47 H Est GFR ( Amer) 55 L Est GFR (MDRD) Non-Af 46 L Glucose 147 H Lactic Acid 1.2 Calcium 9.0 Total Bilirubin 0.5 Direct Bilirubin 0.3 Neonat Total Bilirubin Not Reportable Neonat Direct Bilirubin Not Reportable Neonat Indirect Bili Not Reportable AST 106 H ALT 124 Alkaline Phosphatase 150 H Total Protein 7.4 Albumin 3.0 L Foot X-Ray 03/29/19 19:12 IMPRESSION: Medial forefoot soft tissue defect adjacent to the 1st MTP joint. No obvious acute underlying bone abnormality, in the setting of osteopenia. Extremity Arterial Study 03/29/19 20:48 IMPRESSION: 1. No hemodynamically significant stenoses by velocity criteria. 2. Diffusely dampened waveform pattern and diminished flow velocity throughout the right lower extremity arterial vasculature, likely representing aortoiliac inflow stenosis. Further evaluation with CT angiogram runoff may be beneficial if clinically warranted.. Patient's labs show a slight leukocytosis with no elevated lactic acid. I discussed this with my attending Dr. Drummond. He feels comfortable sending the patient home on antibiotics. Patient does have an appointment with vascular surgery tomorrow. Discussed with patient and family in room importance of following up with vascular surgery and returning to the emergency department for any concerns. - Vital Signs Vital signs: Temp Pulse Resp BP Pulse Ox 98.3 F 16 107/52 L 97 03/29/19 16:28 03/30/19 01:01 03/30/19 01:01 03/30/19 01:01 - Laboratory Result Diagrams: 03/29/19 16:45 03/29/19 16:45 Laboratory results interpreted by me: 03/29/19 03/29/19 16:45 16:45 WBC 13.1 H RBC 3.73 L Hgb 9.7 L Hct 30.2 L MCH 26.0 L RDW 20.8 H Lymph % (Auto) 6.6 L Absolute Neuts (auto) 10.8 H Seg Neutrophils % 82.5 H BUN 50 H Creatinine 1.47 H Est GFR ( Amer) 55 L Est GFR (MDRD) Non-Af 46 L Glucose 147 H AST 106 H Alkaline Phosphatase 150 H Albumin 3.0 L Discharge - Discharge Clinical Impression: Peripheral vascular disease Cellulitis Qualifiers: Site of cellulitis: extremity Site of cellulitis of extremity: lower extremity Laterality: right Qualified Code(s): L03.115 - Cellulitis of right lower limb Condition: Stable Disposition: HOME, SELF-CARE Instructions: Cellulitis ([facility]), Prophylactic Antibiotic ([facility]), Wound Infection ([facility]) Additional Instructions: As we discussed you have been seen today for wound to right lower extremity. Your labs revealed no signs of overwhelming infection. You should follow-up with the vascular surgeon at tomorrow's visit. Please take antibiotics in the meantime in case this is an infection. Please immediately return to the emergency room for any concerns. Prescriptions: Sulfamethoxazole/Trimethoprim [Bactrim Ds Tablet] 1 each PO BID 7 Days #14 tablet Cephalexin Monohydrate [Keflex 500 mg Capsule] 500 mg PO BID 7 Days #14 capsule Referrals: CANDIDO ZIMMERMAN MD [Primary Care Provider] - Follow up as needed
[2019-03-29] MEDS ORDERED: SULFAMETHOXAZOLE/TRIMETHOPRIM 800-160 MG TABLET PO ONE (23:27)
[2019-03-29] MEDS ORDERED: CEPHALEXIN 500 MG CAPSULE PO ONE (23:27)
--- NOTE | 2019-03-29 23:38 | RADIOLOGY REPORT (SQ) ---
EXAM DESCRIPTION: Right lower extremity arterial duplex CLINICAL HISTORY: 83 years, Male, RLE WOUND COMPARISON: None TECHNIQUE: Utilizing a linear array transducer, real-time ultrasound evaluation of the right lower extremity was performed. Color Doppler imaging was used to assess vascular flow. FINDINGS: Right: There is no significant atherosclerotic plaque or vascular calcification throughout the right lower extremity arterial vasculature. Common Femoral Artery: 55 cm/s, monophasic waveform. Proximal Superficial Femoral Artery: 51 cm/s, monophasic waveform. Mid Superficial Femoral Artery: 33 cm/s, monophasic waveform. Distal Superficial Femoral Artery: 51 cm/s, monophasic waveform. Popliteal Artery: 16 cm/s, monophasic waveform. Anterior Tibial Artery: 25 cm/s, monophasic waveform. Posterior Tibial Artery: 28 cm/s, monophasic waveform. IMPRESSION: 1. No hemodynamically significant stenoses by velocity criteria. 2. Diffusely dampened waveform pattern and diminished flow velocity throughout the right lower extremity arterial vasculature, likely representing aortoiliac inflow stenosis. Further evaluation with CT angiogram runoff may be beneficial if clinically warranted..
[2019-03-30 07:10] VITALS: BP 112/59
== END 2019-03-30 07:50 ==
LOC: ER 16:22
DX: L03.115 Cellulitis of right lower limb (principal); I73.9 Peripheral vascular disease, unspecified; Z89.512 Acquired absence of left leg below knee; D72.829 Elevated white blood cell count, unspecified
CPT/HCPCS: 36415; 87040; 85025; 80053; 83605; 93926; 73620; 93005; 93010; A9270 ×2; J2270

== ENCOUNTER 2019-04-05 09:06 | Inpatient (IN) | payer MEDICARE, OTHER ==
[2019-04-05 09:34] LABS: ABSOLUTE BASOPHILS # (AUTO) 0.1 10^3/uL (0.0-0.2); ABSOLUTE EOSINOPHILS # (AUTO) 0.3 10^3/uL (0.0-0.6); ABSOLUTE LYMPHOCYTES (AUTO) 0.7 10^3/uL (0.5-4.7); ABSOLUTE MONOCYTES (AUTO) 0.9 10^3/uL (0.1-1.4); ABSOLUTE NEUT (AUTO) 11.2 10^3/uL (1.7-8.2); BASOPHILS % (AUTO) 0.6 % (0-2); EOSINOPHILS % (AUTO) 1.9 % (0-6); HEMATOCRIT 30.2 % (37.9-51.0); HEMOGLOBIN 9.9 g/dL (13.5-17.0); LYMPHOCYTES % (AUTO) 5.2 % (13-45); MEAN CORPUSCULAR HEMOGLOBIN 26.4 pg (27.0-33.4); MEAN CORPUSCULAR HGB CONC 32.7 g/dL (32.0-36.0); MEAN CORPUSCULAR VOLUME 81 fl (80-97); MONOCYTES % (AUTO) 6.7 % (3-13); PLATELET COUNT 420 10^3/uL (150-450); RED BLOOD COUNT 3.75 10^6/uL (4.35-5.55); RED CELL DISTRIBUTION WIDTH 20.7 % (11.5-14.0); SEGMENTED NEUTROPHILS % (AUTO) 85.6 % (42-78); TOTAL CELLS COUNTED % (AUTO) 100 %; WHITE BLOOD COUNT 13.1 10^3/uL (4.0-10.5)
[2019-04-05 09:41] LABS: INTERNATIONAL RATION (INR) 1.27
[2019-04-05 09:56] LABS: ALBUMIN 3.5 g/dL (3.5-5.0); ALKALINE PHOSPHATASE 129 U/L (38-126); ANION GAP 14 (5-19); ASPARTATE AMINO TRANSFERASE 31 U/L (17-59); BILIRUBIN,DIRECT 0.3 mg/dL (0.0-0.4); BILIRUBIN,TOTAL 0.5 mg/dL (0.2-1.3); BLOOD UREA NITROGEN 35 mg/dL (7-20); CALCIUM 9.5 mg/dL (8.4-10.2); CARBON DIOXIDE 25 mmol/L (22-30); CHLORIDE 109 mmol/L (98-107); GLUCOSE 96 mg/dL (75-110); POTASSIUM 4.9 mmol/L (3.6-5.0); TOTAL PROTEIN 8.2 g/dL (6.3-8.2)
[2019-04-05 10:24] LABS: APPEARANCE,URINE CLEAR; BILIRUBIN,URINE NEGATIVE (NEGATIVE); COLOR,URINE YELLOW; GLUCOSE, URINE NEGATIVE (NEGATIVE); KETONES,URINE TRACE mg/dL (NEGATIVE); PROTEIN,URINE 30 mg/dL (NEGATIVE); URINE SPECIFIC GRAVITY 1.016; UROBILINOGEN,URINE NEGATIVE mg/dL (<2.0)
[2019-04-05 10:25] LABS: VENOUS BLOOD BASE EXCESS 0.7 mmol/L; VENOUS BLOOD HCO3 25.6 mmol/L (20-32); VENOUS BLOOD PCO2 42.5 mmHg (35-63); VENOUS BLOOD PH 7.4 (7.30-7.42)
[2019-04-05] MEDS ORDERED: NORMAL SALINE 500 ML IV ONE (11:35)
[2019-04-05] MEDS ORDERED: CEFTRIAXONE INJ 1000 MG VIAL IV ONE (11:36)
--- NOTE | 2019-04-05 11:43 | RADIOLOGY REPORT (SQ) ---
EXAM DESCRIPTION: CHEST SINGLE VIEW COMPLETED DATE/TIME: 04/05/2019 11:30 am REASON FOR STUDY: UNWITNESSED FALL, AMS COMPARISON: 02/10/2019 NUMBER OF VIEWS: One view. TECHNIQUE: Single frontal radiographic view of the chest acquired. LIMITATIONS: None. FINDINGS: LUNGS AND PLEURA: No opacities, masses or pneumothorax. No pleural effusion. MEDIASTINUM AND HILAR STRUCTURES: No masses. Contour normal. HEART AND VASCULAR STRUCTURES: Heart normal in size. Normal vasculature. BONES: No acute findings. HARDWARE: Sternotomy wires are in place. OTHER: No other significant finding. IMPRESSION: NO SIGNIFICANT RADIOGRAPHIC FINDING IN THE CHEST. TECHNICAL DOCUMENTATION: JOB ID: [id number] [employer]- All Rights Reserved Reading location - IP/workstation name: [email or web address]
--- NOTE | 2019-04-05 11:44 | RADIOLOGY REPORT (SQ) ---
EXAM DESCRIPTION: PELVIS W/OBLIQUES COMPLETED DATE/TIME: 04/05/2019 11:30 am REASON FOR STUDY: bed 10 -found on floor tenderness to pelvis/hip COMPARISON: None. NUMBER OF VIEWS: Two views TECHNIQUE: AP pelvis and additional frog-leg view of both hips. LIMITATIONS: None. FINDINGS: MINERALIZATION: Normal. HIPS: No acute fracture or dislocation. No worrisome bone lesions. PELVIS AND SACRUM: No acute fracture or dislocation. No worrisome bone lesions. PUBIS AND ISCHIUM: No acute fracture. LOWER LUMBAR SPINE: No significant findings as visualized. SOFT TISSUES: No findings. OTHER: Constipation. IMPRESSION: NEGATIVE STUDY OF THE PELVIS AND HIPS. TECHNICAL DOCUMENTATION: JOB ID: [id number] [employer]- All Rights Reserved Reading location - IP/workstation name: [email or web address]
--- NOTE | 2019-04-05 11:51 | RADIOLOGY REPORT (SQ) ---
EXAM DESCRIPTION: CT HEAD WITHOUT COMPLETED DATE/TIME: 04/05/2019 11:42 am REASON FOR STUDY: UNWITNESSED FALL, AMS COMPARISON: None. TECHNIQUE: Axial images acquired through the brain without intravenous contrast. Images reviewed wi th bone, brain and subdural windows. Additional sagittal and coronal reconstructions were generated. Images stored on PACS. All CT scanners at this facility use dose modulation, iterative reconstruction, and/or weight based d osing when appropriate to reduce radiation dose to as low as reasonably achievable (ALARA). [facility]: Dose Right [facility]: CareDose [facility]: Dose Right [facility]: Teradose 4D [facility]: In Ovo RADIATION DOSE: CT Rad equipment meets quality standard of care and radiation dose reduction techniq ues were employed. CTDIvol: 22.3 - 48.6 mGy. DLP: 1320 mGy-cm.mGy. LIMITATIONS: None. FINDINGS: VENTRICLES: Prominent. CEREBRUM: No masses. No hemorrhage. No midline shift. Areas of low density in the white matter mos t likely due to chronic micro-vascular ischemic change. No evidence for acute infarction. CEREBELLUM: No masses. No hemorrhage. No alteration of density. No evidence for acute infarction. EXTRAAXIAL SPACES: Age-related involutional change. No fluid collections. No masses. ORBITS AND GLOBE: No intra- or extraconal masses. Normal contour of globe without masses. CALVARIUM: No fracture. PARANASAL SINUSES: No fluid or mucosal thickening. SOFT TISSUES: No mass or hematoma. OTHER: No other significant finding. IMPRESSION: CHRONIC CHANGES OF ATROPHY AND MICROVASCULAR ISCHEMIA. NO ACUTE PROCESS. EVIDENCE OF ACUTE STROKE: NO. TECHNICAL DOCUMENTATION: JOB ID: [id number] Quality ID # [id number]: Final reports with documentation of one or more dose reduction techniques (e.g., Au tomated exposure control, adjustment of the mA and/or kV according to patient size, use of iterative reconstruction technique) 2010 [employer]- All Rights Reserved Reading location - IP/workstation name: [email or web address]
--- NOTE | 2019-04-05 11:59 | RADIOLOGY REPORT (SQ) ---
EXAM DESCRIPTION: CT CERVICAL SPINE WITHOUT COMPLETED DATE/TIME: 04/05/2019 11:47 am REASON FOR STUDY: UNWITNESSED FALL, AMS COMPARISON: None. TECHNIQUE: Axial images acquired through the cervical spine without intravenous contrast. Images re viewed with lung, soft tissue and bone windows. Reconstructed coronal and sagittal MPR images review ed. Images stored on PACS. All CT scanners at this facility use dose modulation, iterative reconstruction, and/or weight based d osing when appropriate to reduce radiation dose to as low as reasonably achievable (ALARA). [facility]: Dose Right [facility]: CareDose [facility]: Dose Right [facility]: Teradose 4D [facility]: Smart S[employer]Self RADIATION DOSE: CT Rad equipment meets quality standard of care and radiation dose reduction techniq ues were employed. CTDIvol: 23.5 - 24.8 mGy. DLP: 1142 mGy-cm. mGy. LIMITATIONS: None. FINDINGS: ALIGNMENT: Anatomic. MINERALIZATION: Normal. VERTEBRAL BODIES: No fractures or dislocation. DISCS: Severe multilevel disc degenerative disease. FACETS, LATERAL MASSES, POSTERIOR ELEMENTS: Severe multilevel facet degenerative disease. No fractur es. No dislocation. No acute findings. HARDWARE: None in the spine. VISUALIZED RIBS: No fractures. LUNG APICES AND SOFT TISSUES: No significant or acute findings. OTHER: No other significant finding. IMPRESSION: No fracture or static subluxation of cervical spine. TECHNICAL DOCUMENTATION: JOB ID: [id number] Quality ID # [id number]: Final reports with documentation of one or more dose reduction techniques (e.g., Au tomated exposure control, adjustment of the mA and/or kV according to patient size, use of iterative reconstruction technique) 2010 [employer]- All Rights Reserved Reading location - IP/workstation name: [email or web address]
--- NOTE | 2019-04-05 14:03 | ER Document Report ---
Entered by EDIE LUX SCRIBE 04/05/19 1236 Acting as scribe for:BABAR TREADWELL IV, MD ED General - General Chief Complaint: Fall Stated Complaint: FALL/BODY PAIN Time Seen by Provider: 04/05/19 09:57 Primary Care Provider: TO TRACY MD [Primary Care Provider] - Follow up as needed Mode of Arrival: Ambulatory Information source: Patient Notes: Patient is an 83 year old male that presents to the emergency department today with complaints of a fall with non-specific hip pain that occurred today at [facility]. Patient was found down in the hallway for an unknown amount of time. Patient has a chronic right foot wound which does not appear to be getting much, if any, wound care at the facility. Patient has been on multiple antibiotics for recurrent wounds and UTIs. TRAVEL OUTSIDE OF THE [place] IN LAST 30 DAYS: No - Related Data Allergies/Adverse Reactions: zolpidem [From Ambien] Adverse Reaction (Verified 04/05/19 10:41) extreme confusion Past Medical History - General Information source: [facility] Records - Social History Smoking Status: Former Smoker Cigarette use (# per day): No Chew tobacco use (# tins/day): No Frequency of alcohol use: None Drug Abuse: None Lives with: Family Family History: None, Reviewed & Not Pertinent Patient has suicidal ideation: No Patient has homicidal ideation: No - Past Medical History Cardiac Medical History: Reports: Hx Atrial Fibrillation, Hx Congestive Heart Failure, Hx Coronary Artery Disease, Hx Heart Attack - 2000, Hx Hypertension Pulmonary Medical History: GI Medical History: Musculoskeletal Medical History: Reports Hx Arthritis Psychiatric Medical History: Reports: Hx Dementia Infectious Medical History: Past Surgical History: Reports: Hx Cardiac Surgery - CABG x5, Hx Coronary Artery Bypass Graft, Other - Left AKA - Immunizations Hx Diphtheria, Pertussis, Tetanus Vaccination: No Review of Systems - Review of Systems -: Yes ROS unobtainable due to patient's medical condition Physical Exam - Vital signs Vitals: Pulse Ox 98 04/05/19 09:10 - Notes Notes: Physical Exam: General: Somnolent. HEENT: Normocephalic. Atraumatic. PERRL. Extraocular movements intact. Oropharynx clear. Extremely dry oral mucosa. Neck: Supple. Non-tender. Respiratory: No respiratory distress. Clear and equal breath sounds bilaterally. Cardiovascular: Regular rate and rhythm. Abdominal: Suprapubic abdominal tenderness with palpation. No distension. Normal Bowel Sounds. Back: No gross abnormalities. Extremities: Upper extremities: Normal inspection. Normal ROM. Lower extremities: Chronic foot wound to right medial foot. Left AKA. Neurological: Delirious, does not converse. Skin: Warm. Dry. Normal color. Course - Vital Signs Vital signs: Temp Pulse Resp BP Pulse Ox 98.4 F 19 115/66 94 04/05/19 10:31 04/05/19 12:02 04/05/19 12:02 04/05/19 12:02 - Laboratory Result Diagrams: 04/05/19 08:59 04/05/19 08:59 Laboratory results interpreted by me: 04/05/19 04/05/19 04/05/19 08:59 08:59 08:59 WBC 13.1 H RBC 3.75 L Hgb 9.9 L Hct 30.2 L MCH 26.4 L RDW 20.7 H Lymph % (Auto) 5.2 L Absolute Neuts (auto) 11.2 H Seg Neutrophils % 85.6 H PT 16.0 H Sodium 148.0 H Chloride 109 H BUN 35 H Creatinine 1.92 H Est GFR ( Amer) 41 L Est GFR (MDRD) Non-Af 34 L Alkaline Phosphatase 129 H Urine Protein Urine Ketones Urine Blood Leukocyte Esterase Rfl Urine Ascorbic Acid 04/05/19 09:38 WBC RBC Hgb Hct MCH RDW Lymph % (Auto) Absolute Neuts (auto) Seg Neutrophils % PT Sodium Chloride BUN Creatinine Est GFR ( Amer) Est GFR (MDRD) Non-Af Alkaline Phosphatase Urine Protein 30 H Urine Ketones TRACE H Urine Blood LARGE H Leukocyte Esterase Rfl MODERATE H Urine Ascorbic Acid 40 H - Consults DR. POTTER Time consulted: 13:04 - DR. POTTER AGREED TO SEE PT IN CONSULT FOR FOOT WOUND Reason for consultation: 04/05/19 13:13 HOSPITALIST REQUESTED RIGHT FOOT WOUND CONSULTATION Discharge - Discharge Clinical Impression: UTI (urinary tract infection), Dehydration, Leukocytosis, Unspecified open wound, right foot, subsequent encounter Condition: Poor Disposition: ADMITTED INPATIENT Admitting Provider: SIDRA(HOSPITALIST) - D/W HOSPITALIST 1248 HOURS; DR. VALENTE ACCEPTED PT FOR ADMISSION, REQUESTED WOUND CARE CONSULT Unit Admitted: Medical Floor Referrals: TO TRACY MD [Primary Care Provider] - Follow up as needed I personally performed the services described in the documentation, reviewed and edited the documentation which was dictated to the scribe in my presence, and it accurately records my words and actions.
--- NOTE | 2019-04-05 14:33 | PDOC H&P ---
History of Present Illness Admission Date/PCP: 04/05/19 14:07 TO TRACY MD Patient complains of: Presents for evaluation of post fall History of Present Illness: CHELSY DE LEON is a 83 year old male who presents to the hospital from [facility] for evaluation after a fall. No loss of consciousness was reported prior or after the fall. Discussed with family specifically daughter and at bedside who help shed some light on history. In the emergency department patient underwent trauma evaluation with CT of face head, cervical spine and x-rays of his hip which showed no evidence of fracture or bleed. Patient has been also been reported to be have some change in mental status occasionally getting more confused and more drowsy. Patient himself was unable to give a thorough history during interview. However he does deny any pain. Decision in the ER to admit with concern for wound infection of his right lower extremity. Of note them look concerned with the accuracy of information obtained from family as the daughter and deny any knowledge of patient having dementia but there is prior documentation in our records as well as in the records of the nursing facility the patient does have dementia. Past Medical History Cardiac Medical History: Reports: Atrial Fibrillation, Congestive Heart Failure, Coronary Artery Disease, Myocardial Infarction - 2000, Hypertension, Peripheral Vascular Disease Pulmonary Medical History: Denies: Asthma, Bronchitis, Chronic Obstructive Pulmonary Disease (COPD), Pneumonia Neurological Medical History: Denies: Seizures GI Medical History: Musculoskeltal Medical History: Reports: Arthritis Psychiatric Medical History: Reports: Dementia Denies: Depression Hematology: Denies: Anemia Past Surgical History Past Surgical History: Reports: Coronary Artery Bypass Graft, Other - Left AKA Denies: Pacemaker Social History Lives with: Family Smoking Status: Former Smoker Electronic Cigarette use?: No Frequency of Alcohol Use: None Hx Recreational Drug Use: No Drugs: None Hx Prescription Drug Abuse: No - Advance Directive Resuscitation Status: Do Not Resuscitate - DNR/DNI confirmed with family at bedside specifically daughter and Family History Family History: None, Reviewed & Not Pertinent Parental Family History Reviewed: Yes Children Family History Reviewed: NA Sibling(s) Family History Reviewed.: NA Medication/Allergy Home Medications: Atorvastatin Calcium [Lipitor 40 mg Tablet] 40 mg PO QHS 02/04/18 Colchicine [Colcrys] 0.6 mg PO Q12 02/04/18 Ascorbic Acid [Vitamin C] 500 mg PO DAILY 01/27/19 Aspirin [Ecotrin 81 mg EC Tablet] 81 mg PO DAILY 01/27/19 Calcium Carbonate [Calcium] 600 mg PO BID 01/27/19 Ferrous Sulfate [Feosol 325 mg Tablet] 325 mg PO DAILY 01/27/19 Melatonin 5 mg PO HSP PRN 01/27/19 Mirtazapine 7.5 mg PO QHS 01/27/19 Multivitamin [Tab-A-Hema (Multiple Vitamin) Tablet] 1 tab PO DAILY 01/27/19 Tamsulosin HCl [Flomax 0.4 mg Cap.sr] 0.4 mg PO DAILY 01/27/19 Furosemide [Lasix 20 mg Tablet] 20 mg PO BID #60 tablet 02/10/19 Lisinopril [Prinivil 5 mg Tablet] 5 mg PO DAILY #30 tablet 02/10/19 Metoprolol Tartrate [Lopressor 25 mg Tablet] 12.5 mg PO Q12 #30 tab 02/10/19 Cephalexin Monohydrate [Keflex 500 mg Capsule] 500 mg PO BID 7 Days #14 capsule 03/29/19 Sulfamethoxazole/Trimethoprim [Bactrim Ds Tablet] 1 each PO BID 7 Days #14 tabl et 03/29/19 Allergies/Adverse Reactions: zolpidem [From Ambien] Adverse Reaction (Verified 04/05/19 10:41) extreme confusion Review of Systems ROS unobtainable: Due to mental status - Due to current encephalopathy patient is unable to divulge much Physical Exam Vital Signs: Temp Pulse Resp BP Pulse Ox 98.4 F 13 84/60 L 97 04/05/19 10:31 04/05/19 14:02 04/05/19 14:02 04/05/19 14:01 Intake & Output 04/04/19 04/05/19 04/06/19 06:59 06:59 06:59 Intake Total 500 Balance 500 Weight 64.4 kg General appearance: PRESENT: no acute distress, thin. ABSENT: cooperative, well-nourished Head exam: PRESENT: atraumatic, normocephalic Mouth exam: PRESENT: dry mucosa, neck supple. ABSENT: laceration, moist Teeth exam: PRESENT: poor dentation Neck exam: ABSENT: JVD, tenderness, tracheal deviation, tracheostomy Respiratory exam: PRESENT: clear to auscultation patience Cardiovascular exam: PRESENT: irregular rhythm, +S1, +S2. ABSENT: tachycardia GI/Abdominal exam: PRESENT: normal bowel sounds, soft. ABSENT: distended, firm, guarding, tenderness Rectal exam: PRESENT: deferred Extremities exam: PRESENT: other - Patient has a draining ulcer in his right foot closer to the plantar region with black eschar. Left lower extremity BKA.. ABSENT: joint swelling Musculoskeletal exam: ABSENT: ambulatory Neurological exam: PRESENT: altered, other - eyes closed and mumbling not participating or following instructions. ABSENT: alert, oriented to person, oriented to place, oriented to time, oriented to situation Results Laboratory Results: 04/05/19 08:59 04/05/19 08:59 04/05/19 04/05/19 04/05/19 08:59 08:59 09:25 WBC 13.1 H RBC 3.75 L Hgb 9.9 L Hct 30.2 L MCV 81 MCH 26.4 L MCHC 32.7 RDW 20.7 H Plt Count 420 Seg Neutrophils % 85.6 H VBG pH VBG pCO2 VBG HCO3 VBG Base Excess Sodium 148.0 H Potassium 4.9 Chloride 109 H Carbon Dioxide 25 Anion Gap 14 BUN 35 H Creatinine 1.92 H Est GFR ( Amer) 41 L Glucose 96 Lactic Acid 1.3 Calcium 9.5 Total Bilirubin 0.5 AST 31 Alkaline Phosphatase 129 H Total Protein 8.2 Albumin 3.5 Urine Color Urine Appearance Urine pH Ur Specific [place] Urine Protein Urine Glucose (UA) Urine Ketones Urine Blood Urine RBC (Auto) 04/05/19 04/05/19 09:38 10:16 WBC RBC Hgb Hct MCV MCH MCHC RDW Plt Count Seg Neutrophils % VBG pH 7.40 VBG pCO2 42.5 VBG HCO3 25.6 VBG Base Excess 0.7 Sodium Potassium Chloride Carbon Dioxide Anion Gap BUN Creatinine Est GFR ( Amer) Glucose Lactic Acid Calcium Total Bilirubin AST Alkaline Phosphatase Total Protein Albumin Urine Color YELLOW Urine Appearance CLEAR Urine pH 5.0 Ur Specific [place] 1.016 Urine Protein 30 H Urine Glucose (UA) NEGATIVE Urine Ketones TRACE H Urine Blood LARGE H Urine RBC (Auto) 44 Impressions: Pelvis X-Ray 04/05/19 00:00 IMPRESSION: NEGATIVE STUDY OF THE PELVIS AND HIPS. Cervical Spine CT 04/05/19 11:03 IMPRESSION: No fracture or static subluxation of cervical spine. Chest X-Ray 04/05/19 11:03 IMPRESSION: NO SIGNIFICANT RADIOGRAPHIC FINDING IN THE CHEST. Head CT 04/05/19 11:03 IMPRESSION: CHRONIC CHANGES OF ATROPHY AND MICROVASCULAR ISCHEMIA. NO ACUTE MT OCESS. EVIDENCE OF ACUTE STROKE: NO. Assessment and Plan - Diagnosis (1) Acute metabolic encephalopathy Is this a current diagnosis for this admission?: Yes Plan: Potentially due to underlying dementia coupled with UTI and severe dehydration (2) Peripheral vascular disease of lower extremity with ulceration Is this a current diagnosis for this admission?: Yes Plan: Surgery consulted for evaluation Will place patient on antibiotics for coverage Cultures pending (3) Infected ulcer of skin Qualifiers: Non-pressure ulcer stage: unspecified non-pressure ulcer stage Qualified Code(s): L98.499 - Non-pressure chronic ulcer of skin of other sites with unspecified severity; L08.9 - Local infection of the skin and subcutaneous tissue, unspecified Is this a current diagnosis for this admission?: Yes Plan: As above (4) Acute kidney injury superimposed on chronic kidney disease Is this a current diagnosis for this admission?: Yes Plan: Likely prerenal secondary to dehydration. Patient currently examines us hypovolemic. Will check response to IV fluid. (5) Fall Is this a current diagnosis for this admission?: Yes Plan: CT head, CT cervical spine and films of the hips and pelvis showing no fracture or bleed Believe patient likely has poor ambulatory status will benefit from continued physical therapy (6) Dehydration Is this a current diagnosis for this admission?: Yes Plan: IVF (7) Urinary tract infection Is this a current diagnosis for this admission?: Yes Plan: We will follow-up with urine culture Start on antibiotics - Time Time Spent with patient: 35 or more minutes Medications reviewed and adjusted accordingly: Yes
[2019-04-05] MEDS ORDERED: ONDANSETRON HCL INJ/PF 4 MG/2 ML SDV IV PRN (14:53)
[2019-04-05] MEDS ORDERED: NORMAL SALINE 1000 ML 1,000 ML IV ONE (15:06)
[2019-04-05] MEDS: NORMAL SALINE 1000 ML 1,000 ML IV PRN (16:29)
--- NOTE | 2019-04-05 17:09 | PDOC CONSULTATION ---
Consultation Consult Date: 04/05/19 Provider Consulted: PAM POTTER Consult reason:: Right foot ulcer History of Present Illness Admission Date/PCP: 04/05/19 14:07 TO TRACY MD History of Present Illness: CHELSY DE LEON is a 83 year old male patient brought to the hospital from the [facility] a [facility]. 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 He did have fairly successful right popliteal aneurysm repair done in October 2018. When seen in ED family does not know about the ulcer of the right foot. Patient is a nondiabetic. Patient appears to be drowsy and not well oriented and unable to give any history. History is obtained from the and the daughter who are with him at the ED. Family wants him to be DNR and would like to hold off any potential operation. Past Medical History Cardiac Medical History: Reports: Atrial Fibrillation, Congestive Heart Failure, Coronary Artery Disease, Myocardial Infarction - 2000, Hypertension, Peripheral Vascular Disease Pulmonary Medical History: Denies: Asthma, Bronchitis, Chronic Obstructive Pulmonary Disease (COPD), Pneumonia Neurological Medical History: Denies: Seizures GI Medical History: Musculoskeltal Medical History: Reports: Arthritis Psychiatric Medical History: Reports: Dementia Denies: Depression Hematology: Denies: Anemia Past Surgical History Past Surgical History: Reports: Coronary Artery Bypass Graft, Vascular Surgery - 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 Subsequent left popli, Other - Left AKA Denies: Pacemaker Social History Lives with: Family Smoking Status: Former Smoker Electronic Cigarette use?: No Frequency of Alcohol Use: None Hx Recreational Drug Use: No Drugs: None Hx Prescription Drug Abuse: No - Advance Directive Resuscitation Status: Do Not Resuscitate - DNR/DNI confirmed with family at bedside specifically daughter and Family History Family History: None, Reviewed & Not Pertinent Parental Family History Reviewed: Yes Children Family History Reviewed: No Sibling(s) Family History Reviewed.: No Medication/Allergy Allergies/Adverse Reactions: zolpidem [From Ambien] Adverse Reaction (Verified 04/05/19 10:41) extreme confusion Review of Systems ROS unobtainable: Due to mental status - Unable to obtain the knee from the patient because of decreased mentation and disorientation Physical Exam Vital Signs: Temp Pulse Resp BP Pulse Ox 98.2 F 14 119/89 H 98 04/05/19 15:42 04/05/19 16:01 04/05/19 16:00 04/05/19 16:01 Intake & Output 04/04/19 04/05/19 04/06/19 06:59 06:59 06:59 Intake Total 1500 Balance 1500 Weight 64.4 kg General appearance: PRESENT: mild distress Head exam: PRESENT: atraumatic Eye exam: PRESENT: conjunctiva pink Mouth exam: PRESENT: dry mucosa Cardiovascular exam: PRESENT: RRR Pulses: PRESENT: normal radial pulses, other - Absent right popliteal and right ankle pulses but the foot is warm. Vascular exam: PRESENT: normal capillary refill GI/Abdominal exam: PRESENT: soft Rectal exam: PRESENT: deferred - Though this may be more from patient's decrease in mental status there is a 5cm eschar around the right first metatarsophalangeal joint area with small amount of drainage surrounding it. There is also erythema around the ulcer on the right foot there appears to be just a minimal tenderness when touch though this could be more from patient's decrease in mental status Extremities exam: PRESENT: other - Has a left AKA amputation. There is an ulcer along the right metatarsophalangeal joint area about 5 cm with dry eschar with small amount of drainage around it. There is some erythema also around the right foot ulcer site. Culture of the drainage has been done in the ED earlier today Neurological exam: PRESENT: other - Patient is drowsy and not oriented Skin exam: PRESENT: other - Ulcer along the right first metatarsophalangeal joint area about 5 cm with a dry scab and small amount of drainage surrounding it. Results Laboratory Results: 04/05/19 08:59 04/05/19 08:59 04/05/19 04/05/19 04/05/19 08:59 08:59 09:25 WBC 13.1 H RBC 3.75 L Hgb 9.9 L Hct 30.2 L MCV 81 MCH 26.4 L MCHC 32.7 RDW 20.7 H Plt Count 420 Seg Neutrophils % 85.6 H VBG pH VBG pCO2 VBG HCO3 VBG Base Excess Sodium 148.0 H Potassium 4.9 Chloride 109 H Carbon Dioxide 25 Anion Gap 14 BUN 35 H Creatinine 1.92 H Est GFR ( Amer) 41 L Glucose 96 Lactic Acid 1.3 Calcium 9.5 Total Bilirubin 0.5 AST 31 Alkaline Phosphatase 129 H Total Protein 8.2 Albumin 3.5 Urine Color Urine Appearance Urine pH Ur Specific [place] Urine Protein Urine Glucose (UA) Urine Ketones Urine Blood Urine RBC (Auto) 04/05/19 04/05/19 09:38 10:16 WBC RBC Hgb Hct MCV MCH MCHC RDW Plt Count Seg Neutrophils % VBG pH 7.40 VBG pCO2 42.5 VBG HCO3 25.6 VBG Base Excess 0.7 Sodium Potassium Chloride Carbon Dioxide Anion Gap BUN Creatinine Est GFR ( Amer) Glucose Lactic Acid Calcium Total Bilirubin AST Alkaline Phosphatase Total Protein Albumin Urine Color YELLOW Urine Appearance CLEAR Urine pH 5.0 Ur Specific [place] 1.016 Urine Protein 30 H Urine Glucose (UA) NEGATIVE Urine Ketones TRACE H Urine Blood LARGE H Urine RBC (Auto) 44 Impressions: Pelvis X-Ray 04/05/19 00:00 IMPRESSION: NEGATIVE STUDY OF THE PELVIS AND HIPS. Cervical Spine CT 04/05/19 11:03 IMPRESSION: No fracture or static subluxation of cervical spine. Chest X-Ray 04/05/19 11:03 IMPRESSION: NO SIGNIFICANT RADIOGRAPHIC FINDING IN THE CHEST. Head CT 04/05/19 11:03 IMPRESSION: CHRONIC CHANGES OF ATROPHY AND MICROVASCULAR ISCHEMIA. NO ACUTE PROCESS. EVIDENCE OF ACUTE STROKE: NO. 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 Had a previous right popliteal artery aneurysm repair that may have been successful immediately postop in October of this year. Patient noted to have a ulcer along the right big toe first metatarsophalangeal joint area roughly about 5 cm with a dry scab and a small amount of discharge around it. There is erythema along the right ulcer. The foot is warm but I do not feel a popliteal or right ankle pulses. Patient is a DNR and the and daughter have requested this. They are at the patient's bedside. I recommend at least a right BKA and possibly right above-knee amputation since patient is nonambulatory and right knee appears to be slightly contracted. I explained to the patient about the need for the surgery and they do not want anything done invasive since patient is DNR. We will respect their wishes and I will just recommend IV antibiotics and local wound care to the right foot ulcer. We will then sign off and call for other questions.
[2019-04-05] MEDS: PIPERACILLIN SODIUM/TAZOBACTAM 3.375 GM in NORMAL SALINE 100 ML IV SCH ×2 (17:44→23:59)
[2019-04-05] MEDS ORDERED: PIPERACILLIN/TAZOBACTAM 3.375 GM VIAL IV SCH (18:00)
[2019-04-05] MEDS ORDERED: INFLUENZA QUAD (6MOS+) 2019-20 VAC 0.5 ML SYR IM ONE (18:42)
--- NOTE | 2019-04-05 23:38 | EKG REPORT ---
SEVERITY:- ABNORMAL ECG - SINUS TACHYCARDIA MULTIFORM VENTRICULAR PREMATURE COMPLEXES RIGHT BUNDLE BRANCH BLOCK ANTERIOR INFARCT, AGE INDETERMINATE : Confirmed by: Senait Mejía 05-Apr-2019 23:37:37
[2019-04-05] MEDS: HEPARIN SOD (PORCINE) 5,000 UNIT/ML 1 ML VIAL SUBCUT SCH (23:59)
[2019-04-06 05:27] LABS: HEMATOCRIT 28.7 % (37.9-51.0); HEMOGLOBIN 9.1 g/dL (13.5-17.0); MEAN CORPUSCULAR HEMOGLOBIN 25.8 pg (27.0-33.4); MEAN CORPUSCULAR HGB CONC 31.7 g/dL (32.0-36.0); MEAN CORPUSCULAR VOLUME 82 fl (80-97); PLATELET COUNT 355 10^3/uL (150-450); RED BLOOD COUNT 3.52 10^6/uL (4.35-5.55); RED CELL DISTRIBUTION WIDTH 21.4 % (11.5-14.0); WHITE BLOOD COUNT 12.4 10^3/uL (4.0-10.5)
[2019-04-06 05:56] LABS: ALBUMIN 2.9 g/dL (3.5-5.0); ALKALINE PHOSPHATASE 105 U/L (38-126); ANION GAP 12 (5-19); ASPARTATE AMINO TRANSFERASE 27 U/L (17-59); BILIRUBIN,DIRECT 0.3 mg/dL (0.0-0.4); BILIRUBIN,TOTAL 0.5 mg/dL (0.2-1.3); BLOOD UREA NITROGEN 35 mg/dL (7-20); CALCIUM 8.8 mg/dL (8.4-10.2); CARBON DIOXIDE 21 mmol/L (22-30); CHLORIDE 113 mmol/L (98-107); PHOSPHORUS 5.4 mg/dL (2.5-4.5); POTASSIUM 4.4 mmol/L (3.6-5.0); TOTAL PROTEIN 7.2 g/dL (6.3-8.2)
[2019-04-06 06:00] LABS: GLUCOSE 59 mg/dL (75-110)
[2019-04-06] MEDS: NORMAL SALINE 1000 ML 1,000 ML IV PRN (06:28)
[2019-04-06] MEDS: PIPERACILLIN SODIUM/TAZOBACTAM 3.375 GM in NORMAL SALINE 100 ML IV SCH ×3 (06:29→17:41)
[2019-04-06] MEDS: HEPARIN SOD (PORCINE) 5,000 UNIT/ML 1 ML VIAL SUBCUT SCH ×3 (06:29→21:51)
[2019-04-06] MEDS ORDERED: TRAMADOL HCL 50 MG TABLET PO PRN (08:15)
[2019-04-06] MEDS: LISINOPRIL 5 MG TABLET PO SCH (09:49)
[2019-04-06] MEDS: ASPIRIN 81 MG TABLET, CHEWABLE PO SCH (09:50)
[2019-04-06] MEDS: ALLOPURINOL 100 MG TABLET PO SCH (09:50)
[2019-04-06] MEDS: FERROUS SULFATE 325 MG TABLET PO SCH (09:50)
[2019-04-06] MEDS: ASCORBIC ACID 500 MG TABLET PO SCH (09:50)
[2019-04-06] MEDS: TAMSULOSIN HCL 0.4 MG CAP.SR.24H PO SCH (09:50)
[2019-04-06] MEDS: POVIDONE-IODINE 10% OINTMENT 28.4 GM TOP SCH ×2 (14:13→21:58)
--- NOTE | 2019-04-06 14:42 | PDOC PROGRESS REPORT ---
Subjective Progress Note for:: 04/06/19 Subjective:: Patient is a little more awake today. Denies any pain. Patient is not fully aware of where he is. Does not communicate much during interview but able to answer a few basic questions. Reason For Visit: ENCEPHALOPATHY,INFECTED RIGHT LOWER EXTREMITY Physical Exam Vital Signs: Temp Pulse Resp BP Pulse Ox 98.1 F 78 18 134/66 H 96 04/06/19 12:00 04/06/19 12:00 04/06/19 12:00 04/06/19 12:00 04/06/19 12:00 Intake & Output 04/05/19 04/06/19 04/07/19 06:59 06:59 06:59 Intake Total 2800 1032 Output Total 550 Balance 2250 1032 Weight 62.7 kg General appearance: PRESENT: no acute distress, cooperative Mouth exam: PRESENT: moist Neck exam: ABSENT: JVD, tracheal deviation Cardiovascular exam: PRESENT: RRR, +S1, +S2. ABSENT: tachycardia GI/Abdominal exam: PRESENT: normal bowel sounds, soft. ABSENT: ascites, guarding, rigid, tenderness Rectal exam: PRESENT: deferred Extremities exam: ABSENT: calf tenderness, full ROM, joint swelling, pedal edema Neurological exam: PRESENT: altered, awake, oriented to person. ABSENT: orie nted to place, oriented to time, oriented to situation Skin exam: PRESENT: other - Right foot wound black eschar clean dressing Results Laboratory Results: 04/06/19 04:43 04/06/19 04:43 04/06/19 04/06/19 04/06/19 04:43 04:43 04:43 WBC 12.4 H RBC 3.52 L Hgb 9.1 L Hct 28.7 L MCV 82 MCH 25.8 L MCHC 31.7 L RDW 21.4 H Plt Count 355 Sodium 146.0 H Potassium 4.4 Chloride 113 H Carbon Dioxide 21 L Anion Gap 12 BUN 35 H Creatinine 1.88 H Est GFR ( Amer) 42 L Glucose 59 L Calcium 8.8 Phosphorus 5.4 H Magnesium 2.3 Total Bilirubin 0.5 AST 27 Alkaline Phosphatase 105 Total Protein 7.2 Albumin 2.9 L TSH 1.78 Impressions: Pelvis X-Ray 04/05/19 00:00 IMPRESSION: NEGATIVE STUDY OF THE PELVIS AND HIPS. Cervical Spine CT 11/06/19 11:03 IMPRESSION: No fracture or static subluxation of cervical spine. Chest X-Ray 04/05/19 11:03 IMPRESSION: NO SIGNIFICANT RADIOGRAPHIC FINDING IN THE CHEST. Head CT 04/05/19 11:03 IMPRESSION: CHRONIC CHANGES OF ATROPHY AND MICROVASCULAR ISCHEMIA. NO ACUTE PROCESS. EVIDENCE OF ACUTE STROKE: NO. Assessment and Plan - Diagnosis (1) Acute metabolic encephalopathy Is this a current diagnosis for this admission?: Yes Plan: Potentially due to underlying dementia coupled with UTI and severe dehydration (2) Peripheral vascular disease of lower extremity with ulceration Is this a current diagnosis for this admission?: Yes Plan: Family declined surgical intervention Right foot wound culture growing gram-positive cocci and gram-negative rods Continue Zosyn (3) Infected ulcer of skin Qualifiers: Non-pressure ulcer stage: unspecified non-pressure ulcer stage Qualified Code(s): L98.499 - Non-pressure chronic ulcer of skin of other sites with unspecified severity; L08.9 - Local infection of the skin and subcutaneous tissue, unspecified Is this a current diagnosis for this admission?: Yes Plan: As above (4) Bacteremia Is this a current diagnosis for this admission?: Yes Plan: Gram-positive cocci in clusters in 1 bottle blood cultures Uncertain if true bacteremia versus contamination. will add vancomycin to regimen pending results of repeat blood cultures as well as bacteria speciation (5) Acute kidney injury superimposed on chronic kidney disease Is this a current diagnosis for this admission?: Yes Plan: Likely prerenal secondary to dehydration. Patient currently examined as hypovolemic on admission. Will check response to IV fluid. (6) Fall Is this a current diagnosis for this admission?: Yes Plan: CT head, CT cervical spine and films of the hips and pelvis showing no fracture or bleed Believe patient likely has poor ambulatory status will benefit from continued physical therapy (7) Dehydration Is this a current diagnosis for this admission?: Yes Plan: IVF (8) Urinary tract infection Qualifiers: Urinary tract infection type: acute cystitis Is this a current diagnosis for this admission?: Yes Plan: We will follow-up with urine culture Start on antibiotics - Time Time Spent with patient: 15-24 minutes
[2019-04-06] MEDS ORDERED: VANCOMYCIN HCL 1,500 MG in DEXTROSE 5%-WATER 250 ML IV SCH (16:00)
[2019-04-06] MEDS ORDERED: VANCOMYCIN HCL INJ 1000 MG VIAL IV SCH (17:00)
[2019-04-06] MEDS: MIRTAZAPINE 15 MG TABLET PO SCH (21:50)
[2019-04-06] MEDS: ATORVASTATIN CALCIUM 40 MG TABLET PO SCH (21:51)
[2019-04-07] MEDS: PIPERACILLIN SODIUM/TAZOBACTAM 3.375 GM in NORMAL SALINE 100 ML IV SCH ×4 (01:19→17:32)
[2019-04-07] MEDS: TRAMADOL HCL 50 MG TABLET PO PRN (01:20)
[2019-04-07 06:44] LABS: ABSOLUTE BASOPHILS # (AUTO) 0.1 10^3/uL (0.0-0.2); ABSOLUTE EOSINOPHILS # (AUTO) 0.7 10^3/uL (0.0-0.6); ABSOLUTE LYMPHOCYTES (AUTO) 1.2 10^3/uL (0.5-4.7); ABSOLUTE MONOCYTES (AUTO) 1.1 10^3/uL (0.1-1.4); BASOPHILS % (AUTO) 0.4 % (0-2); EOSINOPHILS % (AUTO) 6.1 % (0-6); HEMATOCRIT 26.8 % (37.9-51.0); HEMOGLOBIN 8.6 g/dL (13.5-17.0); MEAN CORPUSCULAR HEMOGLOBIN 25.9 pg (27.0-33.4); MEAN CORPUSCULAR VOLUME 81 fl (80-97); MONOCYTES % (AUTO) 9.1 % (3-13); PLATELET COUNT 311 10^3/uL (150-450); RED CELL DISTRIBUTION WIDTH 21.3 % (11.5-14.0); SEGMENTED NEUTROPHILS % (AUTO) 74.4 % (42-78); TOTAL CELLS COUNTED % (AUTO) 100 %; WHITE BLOOD COUNT 12.1 10^3/uL (4.0-10.5)
[2019-04-07 07:02] LABS: ANION GAP 8 (5-19); BLOOD UREA NITROGEN 33 mg/dL (7-20); CALCIUM 8.3 mg/dL (8.4-10.2); CARBON DIOXIDE 22 mmol/L (22-30); CHLORIDE 112 mmol/L (98-107); GLUCOSE 79 mg/dL (75-110); POTASSIUM 3.9 mmol/L (3.6-5.0)
[2019-04-07] MEDS: HEPARIN SOD (PORCINE) 5,000 UNIT/ML 1 ML VIAL SUBCUT SCH ×3 (08:35→21:51)
[2019-04-07] MEDS: ASCORBIC ACID 500 MG TABLET PO SCH (11:24)
[2019-04-07] MEDS: ALLOPURINOL 100 MG TABLET PO SCH (11:24)
[2019-04-07] MEDS: LISINOPRIL 5 MG TABLET PO SCH (11:24)
[2019-04-07] MEDS: FERROUS SULFATE 325 MG TABLET PO SCH (11:24)
[2019-04-07] MEDS: ASPIRIN 81 MG TABLET, CHEWABLE PO SCH (11:24)
[2019-04-07] MEDS: TAMSULOSIN HCL 0.4 MG CAP.SR.24H PO SCH (11:24)
[2019-04-07] MEDS: POVIDONE-IODINE 10% OINTMENT 28.4 GM TOP SCH ×2 (11:25→21:49)
--- NOTE | 2019-04-07 14:15 | PDOC PROGRESS REPORT ---
Subjective Progress Note for:: 04/07/19 Subjective:: Patient more alert today. He denies any chest pain. He vocalizes that he is here for wound infection. Denies any nausea vomiting fever chills shortness of breath. Reason For Visit: ENCEPHALOPATHY,INFECTED RIGHT LOWER EXTREMITY Physical Exam Vital Signs: Temp Pulse Resp BP Pulse Ox 97.3 F 85 15 121/64 99 04/07/19 12:00 04/07/19 12:00 04/07/19 12:00 04/07/19 12:00 04/07/19 12:00 Intake & Output 04/06/19 04/07/19 04/08/19 06:59 06:59 06:59 Intake Total 2800 3078 696 Output Total 550 825 300 Balance 2250 2253 396 Weight 62.7 kg General appearance: PRESENT: no acute distress, cooperative, thin Mouth exam: PRESENT: moist Respiratory exam: PRESENT: clear to auscultation patience, symmetrical, unlabored. ABSENT: tachypnea Cardiovascular exam: PRESENT: RRR, +S1, +S2. ABSENT: gallop, systolic murmur GI/Abdominal exam: PRESENT: normal bowel sounds, soft. ABSENT: firm, guarding, tenderness Neurological exam: PRESENT: alert, awake, oriented to person, oriented to place, oriented to situation. ABSENT: oriented to time Psychiatric exam: ABSENT: agitated Results Laboratory Results: 04/07/19 05:50 04/07/19 05:50 04/07/19 04/07/19 05:50 05:50 WBC 12.1 H RBC 3.30 L Hgb 8.6 L Hct 26.8 L MCV 81 MCH 25.9 L MCHC 32.0 RDW 21.3 H Plt Count 311 Seg Neutrophils % 74.4 Sodium 142.3 Potassium 3.9 Chloride 112 H Carbon Dioxide 22 Anion Gap 8 BUN 33 H Creatinine 1.60 H Est GFR ( Amer) 50 L Glucose 79 Calcium 8.3 L 04/05/19 09:38 Catheterized Urine Urine Culture - Final NO GROWTH 2 DAYS 04/07/19 05:50 NT-Pro-B Natriuret Pep 42418 H Impressions: Pelvis X-Ray 04/05/19 00:00 IMPRESSION: NEGATIVE STUDY OF THE PELVIS AND HIPS. Cervical Spine CT 04/05/19 11:03 IMPRESSION: No fracture or static subluxation of cervical spine. Chest X-Ray 04/05/19 11:03 IMPRESSION: NO SIGNIFICANT RADIOGRAPHIC FINDING IN THE CHEST. Head CT 04/05/19 11:03 IMPRESSION: CHRONIC CHANGES OF ATROPHY AND MICROVASCULAR ISCHEMIA. NO ACUTE PROCESS. EVIDENCE OF ACUTE STROKE: NO. Assessment and Plan - Diagnosis (1) Acute metabolic encephalopathy Is this a current diagnosis for this admission?: Yes Plan: Potentially due to underlying dementia coupled with UTI and severe dehydration -Patient is currently improved with hydration and antibiotics. (2) Peripheral vascular disease of lower extremity with ulceration Is this a current diagnosis for this admission?: Yes Plan: Family declined surgical intervention Right foot wound culture growing gram-positive cocci and gram-negative rods Continue Zosyn-we will de-escalate antibiotics pending blood cultures results (3) Infected ulcer of skin Qualifiers: Non-pressure ulcer stage: unspecified non-pressure ulcer stage Qualified Code(s): L98.499 - Non-pressure chronic ulcer of skin of other sites with unspecified severity; L08.9 - Local infection of the skin and subcutaneous tissue, unspecified Is this a current diagnosis for this admission?: Yes (4) Bacteremia Is this a current diagnosis for this admission?: Yes Plan: Gram-positive cocci in clusters in 1 bottle blood cultures Uncertain if true bacteremia versus contamination. will add vancomycin to regimen pending results of repeat blood cultures as well as bacteria speciation (5) Acute kidney injury superimposed on chronic kidney disease Is this a current diagnosis for this admission?: Yes Plan: Likely prerenal secondary to dehydration. Currently back to baseline following IV fluids. (6) Fall Is this a current diagnosis for this admission?: Yes Plan: CT head, CT cervical spine and films of the hips and pelvis showing no fracture or bleed Believe patient likely has poor ambulatory status will benefit from continued physical therapy (7) Dehydration Is this a current diagnosis for this admission?: Yes Plan: Resolved (8) Urinary tract infection Qualifiers: Urinary tract infection type: acute cystitis Is this a current diagnosis for this admission?: Yes Plan: Already on antibiotics - Time Time Spent with patient: 15-24 minutes
[2019-04-07] MEDS: MIRTAZAPINE 15 MG TABLET PO SCH (21:52)
[2019-04-07] MEDS: ATORVASTATIN CALCIUM 40 MG TABLET PO SCH (21:52)
[2019-04-08] MEDS: PIPERACILLIN SODIUM/TAZOBACTAM 3.375 GM in NORMAL SALINE 100 ML IV SCH ×2 (01:20→06:58)
[2019-04-08] MEDS: TRAMADOL HCL 50 MG TABLET PO PRN ×2 (02:52→22:06)
[2019-04-08] MEDS: HEPARIN SOD (PORCINE) 5,000 UNIT/ML 1 ML VIAL SUBCUT SCH ×3 (06:59→22:05)
--- NOTE | 2019-04-08 10:51 | PDOC PROGRESS REPORT ---
Subjective Reason For Visit: ENCEPHALOPATHY,INFECTED RIGHT LOWER EXTREMITY Physical Exam Vital Signs: Temp Pulse Resp BP Pulse Ox 97.6 F 77 18 148/76 H 99 04/08/19 08:00 04/08/19 08:00 04/08/19 08:00 04/08/19 08:00 04/08/19 08:00 Intake & Output 04/07/19 04/08/19 04/09/19 06:59 06:59 06:59 Intake Total 3078 1946 Output Total 825 1250 Balance 2253 696 Weight 72.6 kg General appearance: PRESENT: no acute distress, cooperative Eye exam: PRESENT: conjunctival injection - right eye Neck exam: ABSENT: JVD Respiratory exam: PRESENT: clear to auscultation patience, symmetrical, unlabored. ABSENT: tachypnea GI/Abdominal exam: PRESENT: normal bowel sounds, soft. ABSENT: distended, firm, rigid, tenderness Neurological exam: PRESENT: alert, awake, oriented to person, oriented to place. ABSENT: oriented to time, oriented to situation Psychiatric exam: ABSENT: agitated Skin exam: PRESENT: other - Right foot ulcer with some drainage from black eschar Results Laboratory Results: 04/07/19 05:50 04/07/19 05:50 04/05/19 09:38 Catheterized Urine Urine Culture - Final NO GROWTH 2 DAYS 04/07/19 05:50 NT-Pro-B Natriuret Pep [id number] H Impressions: Pelvis X-Ray 04/05/19 00:00 IMPRESSION: NEGATIVE STUDY OF THE PELVIS AND HIPS. Cervical Spine CT 04/05/19 11:03 IMPRESSION: No fracture or static subluxation of cervical spine. Chest X-Ray 04/05/19 11:03 IMPRESSION: NO SIGNIFICANT RADIOGRAPHIC FINDING IN THE CHEST. Head CT 04/05/19 11:03 IMPRESSION: CHRONIC CHANGES OF ATROPHY AND MICROVASCULAR ISCHEMIA. NO ACUTE PROCESS. EVIDENCE OF ACUTE STROKE: NO. Assessment and Plan - Diagnosis (1) Acute metabolic encephalopathy Is this a current diagnosis for this admission?: Yes Plan: Potentially due to underlying dementia coupled with UTI and severe dehydration -Patient is currently improved with hydration and antibiotics. (2) Peripheral vascular disease of lower extremity with ulceration Is this a current diagnosis for this admission?: Yes Plan: Wound infection Family declined surgical intervention Right foot wound culture growing gram-positive cocci, gram-negative rods and proteus De-escalate antibiotics regimen from Zosyn to Augmentin plus Bactrim which patient will take for extended course as family has declined surgical source control (3) Infected ulcer of skin Qualifiers: Non-pressure ulcer stage: unspecified non-pressure ulcer stage Qualified Code(s): L98.499 - Non-pressure chronic ulcer of skin of other sites with unspecified severity; L08.9 - Local infection of the skin and subcutaneous tissue, unspecified Is this a current diagnosis for this admission?: Yes Plan: As above (4) Bacteremia Is this a current diagnosis for this admission?: Yes Plan: Gram-positive cocci in clusters in 1 bottle blood cultures only. I have spoken with the lab and I was informed that the bacteria was staph epi. This is likely contaminant. Will discontinue vancomycin. Will follow repeat blood cultures I will discharge patient tomorrow if repeat cultures are negative for 48 hours. (5) Acute kidney injury superimposed on chronic kidney disease Is this a current diagnosis for this admission?: Yes Plan: Likely prerenal secondary to dehydration. Currently back to baseline following IV fluids. (6) Fall Is this a current diagnosis for this admission?: Yes (7) Dehydration Is this a current diagnosis for this admission?: Yes (8) Urinary tract infection Qualifiers: Urinary tract infection type: acute cystitis Is this a current diagnosis for this admission?: Yes Plan: I actually believe patient just had asymptomatic bacteriuria and not a true urinary tract infection. Regardless he is already on antibiotics. - Time Time Spent with patient: 15-24 minutes Anticipated discharge: SNF Within: within 24 hours
[2019-04-08] MEDS: FERROUS SULFATE 325 MG TABLET PO SCH (10:58)
[2019-04-08] MEDS: LISINOPRIL 5 MG TABLET PO SCH (10:58)
[2019-04-08] MEDS: ASCORBIC ACID 500 MG TABLET PO SCH (10:58)
[2019-04-08] MEDS: TAMSULOSIN HCL 0.4 MG CAP.SR.24H PO SCH (10:58)
[2019-04-08] MEDS: ALLOPURINOL 100 MG TABLET PO SCH (10:58)
[2019-04-08] MEDS: ASPIRIN 81 MG TABLET, CHEWABLE PO SCH (10:59)
[2019-04-08] MEDS: POVIDONE-IODINE 10% OINTMENT 28.4 GM TOP SCH ×2 (10:59→22:07)
[2019-04-08] MEDS: AMOXICILLIN TR/POT CLAVULANATE 500-125 MG TAB PO SCH ×2 (13:41→22:07)
[2019-04-08] MEDS: TOBRAMYCIN SULFATE/DEXAMETH OPH SUSP 2.5 ML OD SCH ×2 (13:42→22:08)
[2019-04-08] MEDS: TOBRAMYCIN SULFATE OD SCH ×2 (14:33→14:34)
[2019-04-08] MEDS: SULFAMETHOXAZOLE/TRIMETHOPRIM 800-160 MG TABLET PO SCH (17:32)
[2019-04-08] MEDS: ATORVASTATIN CALCIUM 40 MG TABLET PO SCH (22:06)
[2019-04-08] MEDS: MIRTAZAPINE 15 MG TABLET PO SCH (22:07)
[2019-04-09 05:44] LABS: ABSOLUTE BASOPHILS # (AUTO) 0.1 10^3/uL (0.0-0.2); ABSOLUTE EOSINOPHILS # (AUTO) 0.5 10^3/uL (0.0-0.6); ABSOLUTE LYMPHOCYTES (AUTO) 1.2 10^3/uL (0.5-4.7); ABSOLUTE MONOCYTES (AUTO) 0.8 10^3/uL (0.1-1.4); ABSOLUTE NEUT (AUTO) 9.4 10^3/uL (1.7-8.2); BASOPHILS % (AUTO) 0.7 % (0-2); EOSINOPHILS % (AUTO) 3.7 % (0-6); HEMATOCRIT 29.6 % (37.9-51.0); HEMOGLOBIN 9.4 g/dL (13.5-17.0); LYMPHOCYTES % (AUTO) 10.1 % (13-45); MEAN CORPUSCULAR HEMOGLOBIN 25.7 pg (27.0-33.4); MEAN CORPUSCULAR HGB CONC 31.6 g/dL (32.0-36.0); MEAN CORPUSCULAR VOLUME 81 fl (80-97); PLATELET COUNT 269 10^3/uL (150-450); RED BLOOD COUNT 3.64 10^6/uL (4.35-5.55); RED CELL DISTRIBUTION WIDTH 21.4 % (11.5-14.0); SEGMENTED NEUTROPHILS % (AUTO) 78.5 % (42-78); TOTAL CELLS COUNTED % (AUTO) 100 %
[2019-04-09] MEDS: HEPARIN SOD (PORCINE) 5,000 UNIT/ML 1 ML VIAL SUBCUT SCH (06:02)
[2019-04-09] MEDS: SULFAMETHOXAZOLE/TRIMETHOPRIM 800-160 MG TABLET PO SCH (06:03)
[2019-04-09] MEDS: AMOXICILLIN TR/POT CLAVULANATE 500-125 MG TAB PO SCH (06:04)
[2019-04-09 06:05] LABS: ANION GAP 5 (5-19); BLOOD UREA NITROGEN 20 mg/dL (7-20); CALCIUM 8.3 mg/dL (8.4-10.2); CARBON DIOXIDE 24 mmol/L (22-30); CHLORIDE 111 mmol/L (98-107); GLUCOSE 95 mg/dL (75-110); POTASSIUM 4.1 mmol/L (3.6-5.0)
--- NOTE | 2019-04-09 09:03 | RADIOLOGY REPORT (SQ) ---
EXAM DESCRIPTION: FOOT RIGHT COMPLETE COMPLETED DATE/TIME: 04/08/2019 7:17 pm REASON FOR STUDY: osteomyelitis? right foot ulcer. COMPARISON: 03/29/2019 NUMBER OF VIEWS: Three views. TECHNIQUE: AP, lateral and oblique without weight bearing radiographic images acquired of the right foot. LIMITATIONS: None. FINDINGS: MINERALIZATION: Osteopenia. BONES: No acute fracture or dislocation. No worrisome bone lesions. No obvious osteomyelitis. Appear ance similar to previous. JOINTS: Hallux valgus. Hypertrophic changes and erosive changes of the 1st MTP joint. Chronic. SOFT TISSUES: Soft tissue defect along the medial foot OTHER: No other significant finding. IMPRESSION: Stable appearance. No obvious osteomyelitis. TECHNICAL DOCUMENTATION: JOB ID: [id number] [employer]- All Rights Reserved Reading location - IP/workstation name: [email or web address]
[2019-04-09] MEDS: ALLOPURINOL 100 MG TABLET PO SCH (09:06)
[2019-04-09] MEDS: TAMSULOSIN HCL 0.4 MG CAP.SR.24H PO SCH (09:06)
[2019-04-09] MEDS: ASPIRIN 81 MG TABLET, CHEWABLE PO SCH (09:06)
[2019-04-09] MEDS: FERROUS SULFATE 325 MG TABLET PO SCH (09:06)
[2019-04-09] MEDS: LISINOPRIL 5 MG TABLET PO SCH (09:06)
[2019-04-09] MEDS: ASCORBIC ACID 500 MG TABLET PO SCH (09:06)
[2019-04-09] MEDS: POVIDONE-IODINE 10% OINTMENT 28.4 GM TOP SCH (09:09)
--- NOTE | 2019-04-09 11:12 | PDOC DISCHARGE SUMMARY ---
Impression - Admit/DC Date/PCP Admission Date/Primary Care Provider: 04/05/19 14:07 TO TRACY MD Discharge Date: 04/09/19 - Discharge Diagnosis (1) Acute metabolic encephalopathy Is this a current diagnosis for this admission?: Yes (2) Peripheral vascular disease of lower extremity with ulceration Is this a current diagnosis for this admission?: Yes (3) Infected ulcer of skin Is this a current diagnosis for this admission?: Yes (4) Acute kidney injury superimposed on chronic kidney disease Is this a current diagnosis for this admission?: Yes (5) Fall Is this a current diagnosis for this admission?: Yes (6) Dehydration Is this a current diagnosis for this admission?: Yes (7) Urinary tract infection Is this a current diagnosis for this admission?: Yes - Assessment Summary: Mr. De Leon was brought into the hospital after a fall. There was some concern expressed by his family members about change in mental status. Initially he was very drowsy and not communicating much. He was also disoriented. In the emergency department, there was concern for acute encephalopathy secondary to wound infection. Patient also underwent CT scans for traumatic evaluation of his fall which showed no fractures or bleeding in the brain cervical spine and hip. Patient was subsequently admitted for encephalopathy. 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 He was evaluated by our surgeon who, after discussing the potential need for right BKA with the patient's daughter and mother, made the joint decision to forego any surgical intervention at this time. Patient was also treated with IV antibiotics [Zosyn and vancomycin] and IV fluids. Wound culture obtained by the ER grew Proteus and gram-positive cocci in pairs and chains. Initial blood cultures obtained on 04/05/2019, grew staph epidermidis and only 1 out of 4 bottles indicating likely contamination. Repeat blood cultures drawn on 04/06/2019 were all negative in all 4 bottles. Patient did not have true bacteremia. Patient mental status improved with hydration and antibiotics and he is now more awake and occasionally more oriented to person, place, and sometimes situation. Patient's urinalysis was fairly positive but patient denies urinary symptoms at this time. Either way patient is already receiving antibiotics. I have decreased patient's Lasix to daily dosing to avoid dehydration. Please adjust as needed to maintain euvolemia. Patient notably had an acute on chronic kidney injury with creatinine initially up to 1.9 [baseline 1.3-1.6]. His creatinine is now back to baseline following IV fluid hydration. Patient is to continue Augmentin and Bactrim for treatment of his wet gangrene in his right foot for 10 more days. Patient will need adequate wound care and follow-up with his primary care doctor. - Additional Information Resuscitation Status: Do Not Resuscitate - DNR/DNI confirmed with family at bedside specifically daughter and Referrals: TO TRACY MD [Primary Care Provider] - Follow up as needed Prescriptions: RX: Furosemide [Lasix 20 mg Tablet] 20 mg PO DAILY #30 RX: Sulfamethoxazole/Trimethoprim [Septra-Ds 800-160 mg Tablet] 1 tab PO Q12 10 Days tablet Home Medications: RX: Allopurinol [Zyloprim 100 mg Tablet] 100 mg PO DAILY 04/05/19 RX: Amino Acids/Protein Hydrolys [Pro-Stat Awc Liquid Packet] 30 ml PO DAILY 04/05/19 RX: Ascorbic Acid [Vitamin C 500 mg Tablet] 500 mg PO DAILY 04/05/19 RX: Aspirin [Aspirin 81 mg Chewable Tablet] 81 mg PO DAILY 04/05/19 RX: Atorvastatin Calcium [Lipitor 40 mg Tablet] 40 mg PO QHS 04/05/19 RX: Calcium Carbonate [Calcium] 600 mg PO BID 04/05/19 RX: Ferrous Sulfate [Feosol 325 mg Tablet] 325 mg PO DAILY 04/05/19 RX: Lisinopril [Prinivil 5 mg Tablet] 5 mg PO DAILY 04/05/19 RX: Melatonin [Melatonin 5 mg Tablet] 5 mg PO QHS 04/05/19 RX: Mirtazapine 7.5 mg PO QHS 04/05/19 RX: Multivitamin [Tab-A-Hema (Multiple Vitamin) Tablet] 1 tab PO DAILY 04/05/19 RX: Povidone-Iodine [Betadine 10% Ointment 28.4 gm] 1 applic TOP .EVERY SHIFT 04/05/19 RX: Saccharomyces Boulardii [Daily Probiotic] 250 mg PO DAILY 04/05/19 RX: Tamsulosin HCl [Flomax 0.4 mg Cap.sr] 0.4 mg PO DAILY 04/05/19 RX: Tobramycin Sulfate [Tobrex 0.3% Oph Soln 5 ml] 1 drop OD QID 04/05/19 RX: Tramadol HCl [Ultram 50 mg Tablet] 50 mg PO Q6HP PRN 04/05/19 RX: Amox Tr/Potassium Clavulanate [Augmentin "500" Tablet] 1 tab PO Q8 10 Days #0 tablet 04/09/19 RX: Furosemide [Lasix 20 mg Tablet] 20 mg PO DAILY #30 04/09/19 RX: Sulfamethoxazole/Trimethoprim [Septra-Ds 800-160 mg Tablet] 1 tab PO Q12 10 Days tablet 04/09/19 History of Present Illiness History of Present Illness: CHELSY DE LEON is a 83 year old male who presents to the hospital from [facility] for evaluation after a fall. No loss of consciousness was reported prior or after the fall. Discussed with family specifically daughter and at bedside who help shed some light on history. In the emergency department patient underwent trauma evaluation with CT of face head, cervical spine and x-rays of his hip which showed no evidence of fracture or bleed. Queenie ent has been also been reported to be have some change in mental status occasionally getting more confused and more drowsy. Patient himself was unable to give a thorough history during interview. However he does deny any pain. Decision in the ER to admit with concern for wound infection of his right lower extremity. Of note them look concerned with the accuracy of information obtained from family as the daughter and deny any knowledge of patient having dementia but there is prior documentation in our records as well as in the records of the nursing facility the patient does have dementia. Physical Exam Vital Signs: Temp Pulse Resp BP Pulse Ox 98.3 F 83 17 130/61 H 98 04/09/19 08:57 04/09/19 08:57 04/09/19 08:57 04/09/19 08:57 04/09/19 08:57 Intake & Output 04/08/19 04/09/19 04/10/19 06:59 06:59 06:59 Intake Total 1946 990 Output Total 1250 1200 Balance 696 -210 Weight 72.6 kg General appearance: PRESENT: no acute distress, cooperative Neck exam: ABSENT: JVD, tracheal deviation Respiratory exam: PRESENT: clear to auscultation patience, symmetrical, unlabored. ABSENT: tachypnea, wheezes Cardiovascular exam: PRESENT: +S1, +S2. ABSENT: irregular rhythm, tachycardia Neurological exam: PRESENT: alert, awake, oriented to person, oriented to place. ABSENT: oriented to time, oriented to situation Psychiatric exam: ABSENT: agitated, anxious Results Laboratory Results: WBC 12.0 10^3/uL (4.0-10.5) H 04/09/19 05:35 RBC 3.64 10^6/uL (4.35-5.55) L 04/09/19 05:35 Hgb 9.4 g/dL (13.5-17.0) L 04/09/19 05:35 Hct 29.6 % (37.9-51.0) L 04/09/19 05:35 MCV 81 fl (80-97) 04/09/19 05:35 MCH 25.7 pg (27.0-33.4) L 04/09/19 05:35 MCHC 31.6 g/dL (32.0-36.0) L 04/09/19 05:35 RDW 21.4 % (11.5-14.0) H 04/09/19 05:35 Plt Count 269 10^3/uL (150-450) 04/09/19 05:35 Lymph % (Auto) 10.1 % (13-45) L 04/09/19 05:35 [place] % (Auto) 7.0 % (3-13) 04/09/19 05:35 Eos % (Auto) 3.7 % (0-6) 04/09/19 05:35 Baso % (Auto) 0.7 % (0-2) 04/09/19 05:35 Absolute Neuts (auto) 9.4 10^3/uL (1.7-8.2) H 04/09/19 05:35 Absolute Lymphs (auto) 1.2 10^3/uL (0.5-4.7) 04/09/19 05:35 Absolute Monos (auto) 0.8 10^3/uL (0.1-1.4) 04/09/19 05:35 Absolute Eos (auto) 0.5 10^3/uL (0.0-0.6) 04/09/19 05:35 Absolute Basos (auto) 0.1 10^3/uL (0.0-0.2) 04/09/19 05:35 Seg Neutrophils % 78.5 % (42-78) H 04/09/19 05:35 PT 16.0 SEC (11.4-15.4) H 04/05/19 08:59 INR 1.27 04/05/19 08:59 VBG pH 7.40 (7.30-7.42) 04/05/19 10:16 VBG pCO2 42.5 mmHg (35-63) 04/05/19 10:16 VBG HCO3 25.6 mmol/L (20-32) 04/05/19 10:16 VBG Base Excess 0.7 mmol/L 04/05/19 10:16 Sodium 139.7 mmol/L (137-145) 04/09/19 05:35 Potassium 4.1 mmol/L (3.6-5.0) 04/09/19 05:35 Chloride 111 mmol/L (98-107) H 04/09/19 05:35 Carbon Dioxide 24 mmol/L (22-30) 04/09/19 05:35 Anion Gap 5 (5-19) 04/09/19 05:35 BUN 20 mg/dL (7-20) 04/09/19 05:35 Creatinine 1.35 mg/dL (0.52-1.25) H 04/09/19 05:35 Est GFR ( Amer) > 60 (>60) 04/09/19 05:35 Est GFR (MDRD) Non-Af 51 (>60) L 04/09/19 05:35 Glucose 95 mg/dL (75-110) 04/09/19 05:35 POC Glucose 70 mg/dL (70-110) 04/06/19 06:21 Lactic Acid 1.3 mmol/L (0.7-2.1) 04/05/19 09:25 Calcium 8.3 mg/dL (8.4-10.2) L 04/09/19 05:35 Phosphorus 5.4 mg/dL (2.5-4.5) H 04/06/19 04:43 Magnesium 2.3 mg/dL (1.6-2.3) 04/06/19 04:43 Total Bilirubin 0.5 mg/dL (0.2-1.3) 04/06/19 04:43 Direct Bilirubin 0.3 mg/dL (0.0-0.4) 04/06/19 04:43 Neonat Total Bilirubin Not Reportable 04/06/19 04:43 Neonat Direct Bilirubin Not Reportable 04/06/19 04:43 Neonat Indirect Bili Not Reportable 04/06/19 04:43 AST 27 U/L (17-59) 04/06/19 04:43 ALT 25 U/L (<50) 04/06/19 04:43 Alkaline Phosphatase 105 U/L (38-126) 04/06/19 04:43 NT-Pro-B Natriuret Pep 51071 pg/mL (<450) H 04/07/19 05:50 Total Protein 7.2 g/dL (6.3-8.2) 04/06/19 04:43 Albumin 2.9 g/dL (3.5-5.0) L 04/06/19 04:43 TSH 1.78 uIU/mL (0.47-4.68) 04/06/19 04:43 Urine Color YELLOW 04/05/19 09:38 Urine Appearance CLEAR 04/05/19 09:38 Urine pH 5.0 (5.0-9.0) 04/05/19 09:38 Ur Specific [place] 1.016 04/05/19 09:38 Urine Protein 30 mg/dL (NEGATIVE) H 04/05/19 09:38 Urine Glucose (UA) NEGATIVE mg/dL (NEGATIVE) 04/05/19 09:38 Urine Ketones TRACE mg/dL (NEGATIVE) H 04/05/19 09:38 Urine Blood LARGE (NEGATIVE) H 04/05/19 09:38 Urine Nitrite (Reflex) NEGATIVE (NEGATIVE) 04/05/19 09:38 Urine Bilirubin NEGATIVE (NEGATIVE) 04/05/19 09:38 Urine Urobilinogen NEGATIVE mg/dL (<2.0) 04/05/19 09:38 Leukocyte Esterase Rfl MODERATE (NEGATIVE) H 04/05/19 09:38 Urine RBC (Auto) 44 /HPF 04/05/19 09:38 U Hyaline Cast (Auto) 8 /LPF 04/05/19 09:38 Urine Bacteria (Auto) TRACE /HPF 04/05/19 09:38 Urine WBC (Reflex) 29 /HPF 04/05/19 09:38 Squamous Epi Cells Auto <1 /HPF 04/05/19 09:38 Urine Mucus (Auto) OCC /LPF 04/05/19 09:38 Urine Ascorbic Acid 40 (NEGATIVE) H 04/05/19 09:38 04/07/19 05:50 NT-Pro-B Natriuret Pep [id number] H Impressions: Pelvis X-Ray 04/05/19 00:00 IMPRESSION: NEGATIVE STUDY OF THE PELVIS AND HIPS. Cervical Spine CT 04/05/19 11:03 IMPRESSION: No fracture or static subluxation of cervical spine. Chest X-Ray 04/05/19 11:03 IMPRESSION: NO SIGNIFICANT RADIOGRAPHIC FINDING IN THE CHEST. Head CT 04/05/19 11:03 IMPRESSION: CHRONIC CHANGES OF ATROPHY AND MICROVASCULAR ISCHEMIA. NO ACUTE PROCESS. EVIDENCE OF ACUTE STROKE: NO. Foot X-Ray 04/08/19 00:00 IMPRESSION: Stable appearance. No obvious osteomyelitis. Stroke Is this a Stroke Patient?: No Acute Heart Failure - Is this a Heart Failure Patient?: Yes Documentation of LVEF assessment?: Yes LVEF < 40%?: No- if no continue to question #3 3. Anticoagulant therapy for permanect/persistent/paraoxysmal Afib or Aflutter: N/A
[2019-04-09] MEDS: TOBRAMYCIN SULFATE/DEXAMETH OPH SUSP 2.5 ML OD SCH (11:27)
[2019-04-09 14:20] VITALS: BP 110/70
== END 2019-04-09 13:30 | disposition home health service (06) | DRG 299 ==
LOC: ER 09:06 → EH 14:07 → 4S 16:51
PROVIDERS: ADMIT Internal Medicine; ATTEND Internal Medicine
DX: I73.89 Other specified peripheral vascular diseases (principal); G93.41 Metabolic encephalopathy; N17.9 Acute kidney failure, unspecified; N30.01 Acute cystitis with hematuria; B96.4 Proteus (mirabilis) (morganii) as the cause of diseases classified elsewhere; B95.62 Methicillin resistant Staphylococcus aureus infection as the cause of diseases classified elsewhere; B95.2 Enterococcus as the cause of diseases classified elsewhere; Z66 Do not resuscitate; I13.10 Hypertensive heart and chronic kidney disease without heart failure, with stage 1 through stage 4 chronic kidney disease, or unspecified chronic kidney disease; N18.9 Chronic kidney disease, unspecified; E86.0 Dehydration; I25.10 Atherosclerotic heart disease of native coronary artery without angina pectoris; F03.90 Unspecified dementia, unspecified severity, without behavioral disturbance, psychotic disturbance, mood disturbance, and anxiety; L98.499 Non-pressure chronic ulcer of skin of other sites with unspecified severity; L08.89 Other specified local infections of the skin and subcutaneous tissue; W19.XXXA Unspecified fall, initial encounter; I25.2 Old myocardial infarction; Z89.612 Acquired absence of left leg above knee; Z95.1 Presence of aortocoronary bypass graft; Z87.891 Personal history of nicotine dependence; Z88.8 Allergy status to other drugs, medicaments and biological substances; Z79.899 Other long term (current) drug therapy; Z79.82 Long term (current) use of aspirin
CPT/HCPCS: 36415; 51702; 70450; 71045; 72125; 72190; 80048; 80053; 81001; 82803; 82962; 83605; 83735; 83880; 84100; 84443; 85025; 85027; 85610; 87040; 87070; 87077; 87086; 87186; 87205; 93005; 93010; 96365; 99285; J0696; J1644; J2543; J3370; J3490; J7030; J7040; J7050; J7060

== ENCOUNTER 2019-04-09 15:35 | Emergency (ER) | payer MEDICARE, OTHER ==
[2019-04-09 16:18] LABS: ABSOLUTE BASOPHILS # (AUTO) 0.1 10^3/uL (0.0-0.2); ABSOLUTE EOSINOPHILS # (AUTO) 0.4 10^3/uL (0.0-0.6); ABSOLUTE LYMPHOCYTES (AUTO) 0.9 10^3/uL (0.5-4.7); ABSOLUTE MONOCYTES (AUTO) 0.6 10^3/uL (0.1-1.4); ABSOLUTE NEUT (AUTO) 9.2 10^3/uL (1.7-8.2); BASOPHILS % (AUTO) 0.9 % (0-2); EOSINOPHILS % (AUTO) 3.6 % (0-6); HEMATOCRIT 31.9 % (37.9-51.0); LYMPHOCYTES % (AUTO) 8.2 % (13-45); MEAN CORPUSCULAR HEMOGLOBIN 25.6 pg (27.0-33.4); MEAN CORPUSCULAR HGB CONC 31.4 g/dL (32.0-36.0); MEAN CORPUSCULAR VOLUME 82 fl (80-97); MONOCYTES % (AUTO) 5.5 % (3-13); PLATELET COUNT 287 10^3/uL (150-450); RED BLOOD COUNT 3.91 10^6/uL (4.35-5.55); RED CELL DISTRIBUTION WIDTH 21.3 % (11.5-14.0); SEGMENTED NEUTROPHILS % (AUTO) 81.8 % (42-78); TOTAL CELLS COUNTED % (AUTO) 100 %; WHITE BLOOD COUNT 11.3 10^3/uL (4.0-10.5)
[2019-04-09 16:32] LABS: ALBUMIN 3.1 g/dL (3.5-5.0); ALKALINE PHOSPHATASE 84 U/L (38-126); ANION GAP 8 (5-19); ASPARTATE AMINO TRANSFERASE 26 U/L (17-59); BILIRUBIN,DIRECT 0.3 mg/dL (0.0-0.4); BILIRUBIN,TOTAL 0.4 mg/dL (0.2-1.3); BLOOD UREA NITROGEN 22 mg/dL (7-20); CALCIUM 8.4 mg/dL (8.4-10.2); CARBON DIOXIDE 24 mmol/L (22-30); CHLORIDE 108 mmol/L (98-107); GLUCOSE 105 mg/dL (75-110); POTASSIUM 4.5 mmol/L (3.6-5.0); TOTAL PROTEIN 7.6 g/dL (6.3-8.2)
[2019-04-09] MEDS ORDERED: NORMAL SALINE 500 ML IV ONE (17:40)
--- NOTE | 2019-04-09 17:49 | ER Document Report ---
ED General - General Chief Complaint: Altered Mental Status Stated Complaint: ALTERED MENTAL STATUS Time Seen by Provider: 04/09/19 17:04 Primary Care Provider: BABAR ZIMMERMAN MD [Primary Care Provider] - Follow up as needed Notes: 83-year-old male presents emergency department via EMS from [facility]. Patient was apparently discharged from the hospital today after being diagnosed with UTI as well as wet and dry gangrene of the right foot. When he arrived at the correction correction stated that he was unresponsive so they called EMS to have him sent back. Family told nursing that they were not at the correction, family told me that they were at the correction and they also could not wake him up when he got back to the correction. Family tells me that when EMS arrived and they went to move him onto the stretcher patient then woke up and return to baseline without any other intervention. Patient currently has no complaints. Wants to know why people are playing games moving him back and forth. Denies any pain, denies any dysuria. Of note the patient does have a follow-up appointment with wound care on the regarding his right foot ulcer which is felt to be related to vascular insufficiency. TRAVEL OUTSIDE OF THE [place] IN LAST 30 DAYS: No - Related Data Allergies/Adverse Reactions: zolpidem [From Ambien] Adverse Reaction (Verified 04/05/19 10:41) extreme confusion Past Medical History - General Information source: Patient, Relative - Social History Smoking Status: Former Smoker Cigarette use (# per day): No Frequency of alcohol use: None Drug Abuse: None Family History: None, Reviewed & Not Pertinent Patient has suicidal ideation: No Patient has homicidal ideation: No - Past Medical History Cardiac Medical History: Reports: Hx Atrial Fibrillation, Hx Congestive Heart Failure, Hx Coronary Artery Disease, Hx Heart Attack - 2000, Hx Hypertension, Hx Peripheral Vascular Disease Pulmonary Medical History: Denies: Hx Asthma, Hx Bronchitis, Hx COPD, Hx Pneumonia Neurological Medical History: Denies: Hx Cerebrovascular Accident, Hx Seizures GI Medical History: Musculoskeletal Medical History: Reports Hx Arthritis Psychiatric Medical History: Reports: Hx Dementia Denies: Hx Depression Infectious Medical History: Past Surgical History: Reports: Hx Cardiac Surgery - CABG x5, Hx Coronary Artery Bypass Graft, Hx Vascular Surgery - 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 Subsequent left popli, Other - Left AKA. Denies: Hx Pacemaker - Immunizations Hx Diphtheria, Pertussis, Tetanus Vaccination: No Review of Systems - Review of Systems Constitutional: Other - Unresponsiveness Skin: See HPI - Right foot ulcer no change. Neurological/Psychological: See HPI - Unresponsiveness -: Yes All other systems reviewed and negative Physical Exam - Vital signs Vitals: Resp Pulse Ox 15 97 04/09/19 15:50 04/09/19 15:50 Interpretation: Tachycardic - Notes Notes: GENERAL: Alert, interacts well. No acute distress. HEAD: Normocephalic, atraumatic EYES: Right lid upper and lower mildly erythematous, small amount of discharge, improved from baseline per family. No swelling, no pain with extraocular movements. ENT: Oral mucosa moist, tongue midline. Upper teeth missing, speech is slurred at baseline when teeth are removed per family and patient. NECK: Full range of motion, supple, trachea midline. LUNGS: Clear to auscultation bilaterally, no wheezes, rales or rhonchi, no respiratory distress. HEART: Regular rate and rhythm, no murmurs, gallops, rubs. ABDOMEN: Soft, nontender, nondistended, bowel sounds present in all 4 quadrants. EXTREMITIES: Moves all 4 extremities spontaneously, left above-knee amputation, stump well-healed, right foot has a 1 out of 4 pulse dorsalis pedis, no cyanosis, see skin exam for ulcer description. NEUROLOGICAL: Alert and oriented x3, speech somewhat slurred due to missing dentures, patient and family both state this is baseline, cranial nerves II through XII grossly intact, biceps DTRs 2+ bilaterally, patellar DTR 2+ on the right, left leg has an AKA. PSYCH: Normal mood, normal affect. SKIN: Warm, Dry, ulcer over the medial aspect of the right first MTP with black eschar, small amount of bone exposed, small amount of thin discharge, foul odor noted. Course - Re-evaluation Re-evalutation: 04/09/19 20:27 CBC shows an improving leukocytosis at 11.3, anemia is also improving at 10.0, platelets remain normal, chemistries show minimal elevation in BUN at 22, creatinine is unchanged, chemistries otherwise unremarkable, troponin undetectable, urinalysis no longer shows any signs of infection, only moderate blood, this has been sent for culture anyway. Foot wound is stable and he has a follow-up appointment with wound care on the . When talking with patient patient states that he was never unresponsive, he states that he knew people were standing they are asking him to wake up but he just did not want to wake up. EMS reports that when they moved him to the stretcher he immediately woke up and was able to talk to him, patient has remained alert and oriented the entire time I have been in the emergency department with him. He has mild tachycardia resolved after fluids. There are no focal deficits. At this time there is no indication for admission. At the end of his visit the did state that the patient does not like staying at [facility] and would like to be readmitted to the hospital, states that the patient felt he got better care here than at [facility]. Discussed with patient and that we cannot admit somebody to the hospital simply because they like it better than the rehab facility. Discussed the process that he would have to go through to get transferred to another rehab facility. Patient will be discharged back to [facility]. 04/09/19 20:30 Discussed with patient the next time that people are trying to wake him up and he does not want to wake up he needs to at least open his eyes and tell them to go away or he will be brought back to the emergency department. Patient is agreeable to this plan. - Vital Signs Vital signs: Temp Pulse Resp BP Pulse Ox 112 H 11 L 106/75 98 04/09/19 17:03 04/09/19 17:03 04/09/19 17:03 04/09/19 17:03 - Laboratory Result Diagrams: 04/09/19 15:56 04/09/19 15:56 Laboratory results interpreted by me: 04/09/19 04/09/19 04/09/19 15:56 15:56 17:35 WBC 11.3 H RBC 3.91 L Hgb 10.0 L Hct 31.9 L MCH 25.6 L MCHC 31.4 L RDW 21.3 H Lymph % (Auto) 8.2 L Absolute Neuts (auto) 9.2 H Seg Neutrophils % 81.8 H Chloride 108 H BUN 22 H Creatinine 1.38 H Est GFR (MDRD) Non-Af 49 L Albumin 3.1 L Urine Protein 30 H Urine Ketones TRACE H Urine Blood MODERATE H Urine Urobilinogen 2.0 H Urine Ascorbic Acid 40 H Discharge - Discharge Clinical Impression: Ulcer of right first MTP joint, Dry gangrene right foot, Wet gangrene right foot, Unresponsive episode Infected ulcer of skin Qualifiers: 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 Please follow-up with all of your appointments as an outpatient including your appointment with Valentine Andino tomorrow and with wound care on the 12th. Referrals: BABAR ZIMMERMAN MD [Primary Care Provider] - Follow up as needed
[2019-04-09 18:03] LABS: APPEARANCE,URINE SLIGHTLY-CLOUDY; BILIRUBIN,URINE NEGATIVE (NEGATIVE); COLOR,URINE YELLOW; GLUCOSE, URINE NEGATIVE (NEGATIVE); KETONES,URINE TRACE mg/dL (NEGATIVE); PROTEIN,URINE 30 mg/dL (NEGATIVE); URINE SPECIFIC GRAVITY 1.019
[2019-04-09 20:57] VITALS: BP 125/93
== END 2019-04-09 21:00 ==
LOC: ER 15:35
DX: I96 Gangrene, not elsewhere classified (principal); L97.514 Non-pressure chronic ulcer of other part of right foot with necrosis of bone; R41.82 Altered mental status, unspecified; I25.10 Atherosclerotic heart disease of native coronary artery without angina pectoris; I10 Essential (primary) hypertension; I25.2 Old myocardial infarction; Z95.1 Presence of aortocoronary bypass graft; Z89.612 Acquired absence of left leg above knee; Z87.891 Personal history of nicotine dependence
CPT/HCPCS: 36415; 87070; 81001; 84484; J7040